=== PATIENT | male | born 1935 | race Caucasian/White ===

== ENCOUNTER → 2020-03-07 12:03 | Outpatient (BNVA) | payer MEDICARE, SELFPAY | PROVIDERS: Family Provider Physician Assistant Medical; PCP Physician Assistant Medical; Visit Provider Dermatology | DX: D48.9 Neoplasm of uncertain behavior, unspecified (principal) | CPT/HCPCS: 88304 ==

== ENCOUNTER → 2020-05-03 12:34 | Outpatient (BNVA) | payer MEDICARE, SELFPAY | PROVIDERS: Family Provider Physician Assistant Medical; PCP Physician Assistant Medical; Visit Provider Surgery | DX: Z20.828 Contact with and (suspected) exposure to other viral communicable diseases (principal); K40.90 Unilateral inguinal hernia, without obstruction or gangrene, not specified as recurrent; R22.32 Localized swelling, mass and lump, left upper limb | CPT/HCPCS: 87635 ==

== ENCOUNTER 2020-05-10 08:20 | Day surgery (SDC) | payer MEDICARE, SELFPAY ==
[2020-05-09 13:56] VITALS: BMI 25.8
[2020-05-10] VITALS (17 sets, daily range): BP systolic 79–112; BP diastolic 48–87; PULSE 54–82; RESP 16–18; TEMP 36.2–36.6; O2SAT 94–99
--- NOTE | 2020-05-10 09:25 | W.PM.OPSFHP ---
Same Day Surgery H&P Indication for Procedure/HPI DATE OF PROCEDURE: May 10, 2020 CHIEF COMPLAINT/INDICATIONFOR SURGICAL PROCEDURE: left hand mass and right inguinal hernia repair PREOP DIAGNOSIS: Right inguinal hernia, cyst left index finger PLANNED PROCEDRUE: Operation Date: 05/10/20 09:55 Proposed Procedures p Laparoscopic poss open right Inguinal Hernia Repair w/Mesh 99392 k40.90 r22.32(Right) - Marcus Aldrich MD s excision of subcutaneous mass left index finger(Left) - Marcus Aldrich MD Medications/Allergies* Home Medications Medication Instructions Recorded Confirmed Type acetaminophen 650 mg 650 mg PO Q12H 06/21/19 05/09/20 History tablet,extended release metoprolol tartrate 25 mg tablet 25 mg PO DIRECTED tab 06/21/19 05/10/20 History omeprazole 40 mg capsule,delayed 40 mg PO DAILY 06/21/19 05/10/20 History release rosuvastatin 20 mg tablet 20 mg PO DAILY 06/21/19 05/10/20 History aspirin 81 mg tablet,delayed See Rx Instructions .ROUTE .COMPLEX 03/07/20 05/10/20 History release cholecalciferol (vitamin D3) 25 25 mcg PO DAILY 03/07/20 05/10/20 History mcg (1,000 unit) capsule ferrous sulfate 325 mg (65 mg 325 mg PO DAILY 03/07/20 05/10/20 History iron) tablet finasteride 5 mg tablet 5 mg PO DAILY 03/07/20 05/10/20 History lisinopril 5 mg tablet 2.5 mg PO DAILY tab 03/07/20 05/10/20 History Allergies/Adverse Reactions Allergy/AdvReac Type Severity Reaction Status Date / Time Penicillins Allergy Unknown Unknown Verified 05/09/20 13:46 Sulfa (Sulfonamide Allergy Unknown Unknown Verified 05/09/20 13:46 Antibiotics) Pertinent History/Comorbid Conditions* Medical History (Updated 03/27/20 @ 14:56 by Marcus Aldrich MD) Anxiety BPH (benign prostatic hyperplasia) Cardiomyopathy CHF (congestive heart failure) Dyslipidemia GERD (gastroesophageal reflux disease) History of skin cancer HTN (hypertension), benign ICD (implantable cardioverter-defibrillator) in place Right inguinal hernia UTI (urinary tract infection) Surgical History (Updated 03/27/20 @ 14:56 by Marcus Aldrich MD) H/O colonoscopy yrs ago S/P cardiac cath S/P internal cardiac defibrillator procedure S/P rotator cuff surgery Family History (Updated 03/27/20 @ 08:59 by Nina Arias LPN) Father, [place] age 82 Mother, [place] age 58 Cancer Mother Father Sister Denies family history of Anesthesia complication Bleeding disorder Social History Smoking and tobacco status: former smoker Alcohol intake: never Household members: spouse Marital status: Current occupational status: retired History of recent travel: No Pertinent Exam Findings alert, oriented x 3 and regular rate & rhythm Recommendations Surgery/Procedure today Coding Level of Care Code Acute Analytic Programmer for Tino Koehler
--- NOTE | 2020-05-10 09:50 | ANES.PREANE2 ---
Pre-Anesthetic Assessment Pre-Anesthetic Assessment: Height/Weight: Height 1.78 m Weight 81.647 kg Temp Pulse Resp BP Pulse Ox 97.7 F 66 18 103/66 95 05/10/20 08:50 05/10/20 08:50 05/10/20 08:50 05/10/20 08:50 05/10/20 08:50 Preop Diagnosis: Right inguinal hernia, cyst left index finger Proposed Procedure: Operation Date: 05/10/20 09:55 Proposed Procedures p Laparoscopic poss open right Inguinal Hernia Repair w/Mesh 40274 k40.90 r22.32(Right) - Marcus Aldrich MD s excision of subcutaneous mass left index finger(Left) - Marcus Aldrich MD Familial anesthetic complications: na Was Beta Yandel taken within 24 hours: Yes Last intake: Intake Last Liquid Date 05/09/20 Last Liquid Time 19:30 Last Solid Date 05/09/20 Last Solid Time 20:00 Last Intake: 18:30 Social: Social History: No alcohol and No tobacco Exam: Pre-Anes Outpt Exam: alert, oriented x 3 and clear to auscultation bilaterally Airway: Submandibular: WNL Cervical ROM: WNL MP: 2 Dentition: False Pulmonary: Pulmonary: None reported CV/HEM: CV/HEM: Arrythmia (AICD) and HTN Comments: AICD went off 2 yrs ago. Off Amiodarone 1.5 : : None reported Hepatic: Hepatic: None reported GI: GI: None reported Metabolic: Metabolic: None reported Musc/skel: Musc/skel: Lower Back Pain and OA/DJD Neuropsych: Neuropsych: Syncope (near in 2016 and AICD placed) Anesthetic Plan: ASA status: 3 Anesthesia: General PFSH Anesthesia PFSH: Medical History Anxiety BPH (benign prostatic hyperplasia) Cardiomyopathy CHF (congestive heart failure) Dyslipidemia GERD (gastroesophageal reflux disease) History of skin cancer HTN (hypertension), benign ICD (implantable cardioverter-defibrillator) in place Right inguinal hernia UTI (urinary tract infection) Surgical History H/O colonoscopy yrs ago S/P cardiac cath S/P internal cardiac defibrillator procedure S/P rotator cuff surgery Family History Mother , [place] age 58 Cancer Father , [place] age 82 Cancer Sister Cancer Denies family history of Anesthesia complication Bleeding disorder Social History Smoking and tobacco status: former smoker Alcohol intake: never Household members: spouse Marital status: Current occupational status: retired History of recent travel: No Data Anesthesia Cardiac Studies: No Data to Display
[2020-05-10] MEDS: clindamycin 600 MG/50 ML PREMIX 100 MG IV (10:34)
[2020-05-10] MEDS: lidocaine 1% INJ 20 mL IM (11:47)
--- NOTE | 2020-05-10 12:53 | SUR.PHASEII ---
PATIENT SUPINE. A+O X3. IV FLUIDS INFUSED. TOLERATING PO FLUIDS WELL.
--- NOTE | 2020-05-10 13:52 | SUR.PHASEII ---
13:40 pT REMAINS HYPOTENSIVE.DENIES PAIN OR DIZZINESS. TOLERATING PO FLUIDS WELL. RE-EVALUATED BY Dr OLSEN. IV ALBUMIN ORDERED.
[2020-05-10] MEDS: albumin 12.5 GM/250 ML VIAL IV (13:55)
--- NOTE | 2020-05-10 14:54 | PM.OP ---
Operative Report Date of procedure: May 10, 2020 Pre-op Diagnosis: 1. Symptomatic reducible right inguinal hernia 2. Cyst plantar aspect of left index finger Post-op Findings: 1. Reducible indirect right inguinal hernia 2. Bilobed cyst plantar aspect of left index finger Procedure Done: 1. Laparoscopic repair of right inguinal indirect hernia with Surgimax 3D mesh measuring 16 x 11 cm 2. Excision of cyst plantar aspect of left index finger Specimens removed/disposition: 1. Cyst left index finger Surgeon: Marcus Aldrich Anesthesia: General Condition: stable Disposition: PACU Procedure: The patient was taken to the operating room. After IV antibiotic was administered, the abdomen was prepped and draped in a sterile manner. Using a 15 blade, a 1.0 cm transverse incision was made infraumbilically on the right side. Subcutaneous tissue was divided using electrocautery and the anterior rectus sheath divided using an 11 blade. The rectus muscle was retracted laterally and the extraperitoneal space identified. A 11 mm port was placed and 12 mm of pneumoperitoneum was created. A 10 mm 30? scope was introduced and the retrorectus space was opened using the camera up to the pubic symphysis and 5 mm ports were placed in the midline, one 2-fingerbreadths above the pubic symphysis and the other midway between these two ports under direct visualization. Blunt dissection was carried out to open up the tissue in the midline and to the pubic symphysis, which was identified. The dissection was then carried laterally where the iliopubic tract was identified. There was no femoral, obturator or direct hernia noted. The inferior epigastric artery was identified and dissection was carried posterior to it and laterally, the space was opened up to the level of the umbilicus superior to the anterior superior iliac spine. I then proceeded to dissect out the spermatic cord and the indirect hernial sac was reduced . There was a pneumoperitoneum created due to small tear in the peritoneum, the pneumoperitoneum was released using a Verres needle placed in the midclavicular line in the right upper quadrant. 16 x 11cm Surgimax 3D mesh was rolled and introduced through the 10 mm port and then rolled laterally and apposed well against the abdominal wall to cover the myopectineal orifice completely. 10 Cc of 0.5% Marcaine was infiltrated into the preperitoneal space. The extraperitoneal space was desufflated under direct visualization to ensure no slippage of hernial sac under the mesh. All ports were removed, the anterior rectus fascia at the infraumbilical port closed using figure of eight 0 Vicryl sutures, subcutaneous tissue approximated using 3-0 Vicryl sutures and skin at all three port sites were closed using running subcuticular 4-0 Monocryl sutures and Dermabond. 10 mL of 0.5% Marcaine was infiltrated at the port sites. The left hand was prepped and draped in a sterile manner. 10 cc of 1% lidocaine was infiltrated at the base of the left index finger for a digital block. A 15 blade 3 cm incision was made over the distal phalanx of the left index finger and the bilobed cyst was dissected free from the surrounding subcutaneous tissue using Iris scissors. Wound was irrigated with saline, hemostasis ensured and subcutaneous tissues were approximated using interrupted 3-0 Vicryl suture and skin was closed using interrupted 3-0 Prolene suture and pressure dressings were applied. The patient was stable throughout the procedure.
[2020-05-10] MEDS: ePHEDrine 50 mg/mL Inj 25 MG IM (16:16)
[2020-05-10] MEDS: sodium chloride 0.9% 500 ML 999 ML IV (16:16)
--- NOTE | 2020-05-10 17:09 | ANE.PACU2 ---
Inpatient post-anesthesia follow up: Airway intact: Yes Vital signs: Temperature 97.5 F Pulse Rate 54 Respiratory Rate 18 Blood Pressure 112/87 Pulse Oximetry 96 Oxygen Delivery Me thod Room Air Oxygen Flow Rate 8 Fraction of Inspir ed Oxygen Hydration adequate: Yes Nausea and vomiting: No Pain level: 1 Mental status: Baseline Additional Comments: Some difficulty with postop hypotension, responded to fluid.
== END 2020-05-10 17:30 | disposition home or self-care (01) ==
PROVIDERS: PCP Physician Assistant Medical; Visit Provider Surgery
PROC: (CPT 49650; principal; 2020-05-10 09:55)
PROC: (CPT 11423; 2020-05-10 09:55)
DX: K40.90 Unilateral inguinal hernia, without obstruction or gangrene, not specified as recurrent (principal); L72.8 Other follicular cysts of the skin and subcutaneous tissue; M19.90 Unspecified osteoarthritis, unspecified site; F41.9 Anxiety disorder, unspecified; N40.0 Benign prostatic hyperplasia without lower urinary tract symptoms; I11.0 Hypertensive heart disease with heart failure; I50.9 Heart failure, unspecified; Z87.891 Personal history of nicotine dependence
CPT/HCPCS: 11423; 12041; 49650; 12345; 88307; C1781; J2370; J2405; J2704; J2710; J3010; J3490; J7040; P9041

== ENCOUNTER 2021-02-28 23:08 | Emergency (ER) | payer MEDICARE, SELFPAY ==
[2021-02-28 23:10] VITALS: BP 162/96; PULSE 60; RESP 18; TEMP 36.4; O2SAT 98; BMI 25.8
--- NOTE | 2021-02-28 23:23 | CTR_ITS ---
PROCEDURE INFORMATION: Exam: CT Cervical Spine Without Contrast Exam date and time: 02/28/2021 11:23 PM Age: 85 years old Clinical indication: Injury or trauma; Fall; Blunt trauma TECHNIQUE: Imaging protocol: Computed tomography images of the cervical spine without contrast. Radiation optimization: All CT scans at this facility use at least one of these dose optimization techniques: automated exposure control; mA and/or kV adjustment per patient size (includes targeted exams where dose is matched to clinical indication); or iterative reconstruction. COMPARISON: CT Cervical Spine wo* [id number] 07/11/2018 12:26 AM RADIATION DOSE METRICS: Total DLP (mGy-cm): 645.17 FINDINGS: Bones/joints: Moderate to severe multilevel spine degenerative changes including degenerative disc disease, spondylosis and facet degenerative changes. Discs/Spinal canal/Neural foramina: Multilevel bilateral foraminal stenosis. Lungs: Lung apices are normal. Vasculature: Severe calcified carotid artery disease. Soft tissues: Unremarkable. CT/CT cervical spin wo con* [id number] IMPRESSION: No acute C-spine findings. Radiation Dose CTDIVOL = (mGy): DLP = 645.17 (mGy-cm)
--- NOTE | 2021-02-28 23:23 | CTR_ITS ---
PROCEDURE INFORMATION: Exam: CT Head Without Contrast Exam date and time: 02/28/2021 11:23 PM Age: 85 years old Clinical indication: Injury or trauma; Fall; Blunt trauma (contusions or hematomas) TECHNIQUE: Imaging protocol: Computed tomography of the head without contrast. Radiation optimization: All CT scans at this facility use at least one of these dose optimization techniques: automated exposure control; mA and/or kV adjustment per patient size (includes targeted exams where dose is matched to clinical indication); or iterative reconstruction. COMPARISON: CT head wo con* [id number] 09/20/2018 11:28 AM RADIATION DOSE METRICS: Total DLP (mGy-cm): 842.34 FINDINGS: Brain: Mild to moderate cerebral atrophy and ischemic leukoencephalopathy. Cerebral ventricles: No ventriculomegaly. Paranasal sinuses: Mild bilateral ethmoid sinus disease. Mastoid air cells: Visualized mastoid air cells are well aerated. Vasculature: Severe calcified intracranial atherosclerotic vessel disease. Bones/joints: Unremarkable. No acute fracture. Soft tissues: Soft tissue swelling/hematoma over the left forehead. CT/CT head wo con* [id number] IMPRESSION: 1. Mild bilateral ethmoid sinus disease. 2. Soft tissue swelling/hematoma over the left forehead. 3. No acute intracranial findings. Radiation Dose CTDIVOL = (mGy): DLP = 842.34 (mGy-cm)
--- NOTE | 2021-02-28 23:30 | W.ED.FALL ---
HPI - Fall General: Chief Complaint: Fall Stated Complaint: FALL Time Seen by Provider: 02/28/21 23:16 Source: patient and EMS Mode of arrival: EMS Limitations: no limitations History of Present Illness: HPI Narrative: 85-year-old male states over the last 4 days he had some slight weakness and has had a couple falls. Patient also states that he has had some slight weakness he had a urinary tract left past stay now another 1 he is able to walk with a walker he did strike his head today and has an abrasion to his left forehead his last fall was this morning. Does have skin tears to forearms Associated symptoms-after fall: Denies abdominal pain, chest pain, headache(s) or neck pain Review of Systems Const: Denies: fever(s), chills, body aches or change in appetite Eyes: Denies: blurry vision or eye discomfort ENMT: Denies: throat pain or dental pain Card: Denies: chest pain Resp: Denies: dyspnea GI: Denies: abdominal pain, nausea, vomiting or diarrhea : Denies: dysuria Musc: Denies: neck pain or back pain Skin/Breast: Denies: rash Neuro: Denies: headache(s) Psych: Denies: depression Oscar/Lymph: Denies: easy bruising All/Imm: Denies: urticaria PFSH ED PFSH: Medical History Anxiety BPH (benign prostatic hyperplasia) Cardiomyopathy CHF (congestive heart failure) Dyslipidemia GERD (gastroesophageal reflux disease) History of skin cancer HTN (hypertension), benign ICD (implantable cardioverter-defibrillator) in place Right inguinal hernia UTI (urinary tract infection) Surgical History H/O colonoscopy yrs ago H/O excision of mass (05/10/20) S/P cardiac cath S/P internal cardiac defibrillator procedure S/P rotator cuff surgery Status post right inguinal hernia repair (05/10/20) Family History Mother , [place] age 58 Cancer Father , [place] age 82 Cancer Sister Cancer Denies family history of Anesthesia complication Bleeding disorder Social History Smoking and tobacco status: former smoker Alcohol intake: never Household members: spouse Marital status: Current occupational status: retired History of recent travel: No Physical Exam Const: COMMON NORMALS: no acute distress, patient oriented x3 and healthy appearing HENMT: COMMON NORMALS: normocephalic HEAD & SCALP: normocephalic OTHER: Abrasion left forehead Eye: COMMON NORMALS: Equal, round and reactive pupils present and EOMs intact bilaterally PUPIL: Yes Equal, round and reactive pupils present Neck/C-Spine: COMMON NORMALS: full ROM and supple Chest: COMMONS NORMALS: normal inspection of the chest and normal palpation of entire chest wall Resp: COMMON NORMALS: normal respiratory effort, No retractions, No use of accessory muscles and clear to auscultation bilaterally AUSCULTATION: clear to auscultation bilaterally Cardio: COMMON NORMALS: regular rate, regular rhythm and No murmurs present (Cardio) RATE: regular rate RHYTHM: regular rhythm GI: COMMON NORMALS: Normal to inspection, nondistended, normoactive bowel sounds present, Soft to palpation, non-tender and no masses PALPATION: Yes Soft to palpation Extremity: COMMON NORMALS: normal to inspection and full ROM OTHER: Small skin tears to both arms Neuro: COMMON NORMALS: patient oriented x3, moves all extremities and no focal motor deficits Psych: COMMON NORMALS: mental status grossly normal, Normal thought process present and cooperative THOUGHT PROCESS: Normal thought process present Skin: COMMON NORMALS: no rashes or lesions noted and no wounds GENERAL SKIN EXAM: no rashes or lesions noted Course Vital Signs: Vital signs: Vital Signs Temperature 97.5 F L 02/28/21 23:10 Pulse Rate 60 02/28/21 23:10 Respiratory Rate 18 02/28/21 23:10 Blood Pressure 162/96 02/28/21 23:10 Pulse Oximetry 98 02/28/21 23:10 MDM - Fall MDM Narrative: Medical decision making narrative: Patient presents with a fall with closed head injury no signs of any major injuries head CT here is normal. Does have a UTI will treat with Macrobid no signs of sepsis he is requesting go home I feel he is stable for discharge he follow-up with PCP and return if worsening. Lab Data: Labs: Lab Results 02/28/21 02/28/21 02/28/21 23:50 23:50 23:50 WBC 11.0 10^3/uL H 10 ^3/uL (4.0-10.0) RBC 3.84 10^6/uL L 10 ^6/uL (4.1-5.3) Hgb 12.0 g/dL g/dL (11.7-16.6) Hct 36.5 % L % (42.0-52.0) MCV 95.1 fl H fl (80-94) MCH 31.3 pg pg (28.0-34.0) MCHC 32.9 g/dL g/dL (30.0-36.0) RDW 14.2 % % (12.1-15.1) Plt Count 148 10^3/cmm 10^3 /cmm (130-400) MPV 8.9 fL fL (7.4-10.4) Neut % (Auto) 73.8 % % Lymph % (Auto) 14.5 % % [place] % (Auto) 10.3 % % Eos % (Auto) 0.4 % % Baso % (Auto) 0.3 % % Neut # (Auto) 8.09 10^3/uL H 10 ^3/uL (1.8-7.7) Lymph # (Auto) 1.6 10^3/uL 10^3/ uL (0.8-4.8) [place] # (Auto) 1.1 10^3/uL H 10^ 3/uL (0.2-0.9) Eos # (Auto) 0.0 10^3/uL 10^3/ uL (0.0-0.8) Baso # (Auto) 0.0 10^3/uL 10^3/ uL (0.0-0.1) Nucleated RBC % (a uto) 0 % % Nucleated RBCs # 0.0 /100WBC /100W BC Sodium 136 mmol/L mmol/L (136-145) Potassium 4.4 mmol/L mmol/L (3.5-5.1) Chloride 101 mmol/L mmol/L (98-107) Carbon Dioxide 27 mmol/L mmol/L (22-29) Anion Gap 12.4 (5-19) BUN 25 mg/dL H mg/dL (8-23) Creatinine 1.4 mg/dL H mg/dL (0.7-1.2) GFR Calculation Not Reportable Glucose 115 mg/dL mg/dL (65-115) Calculated Osmolal ity 287 mOsm/kg mOsm/ kg (285-295) Calcium 9.5 mg/dL mg/dL (8.5-10.5) Total Bilirubin 0.4 mg/dL mg/dL (0.15-1.2) AST 144 U/L H U/L (0-40) ALT 118 U/L H U/L (0-41) Alkaline Phosphata se 94 IU/L IU/L (40-130) Total Protein 7.3 g/dL g/dL (6.6-8.7) Albumin 3.7 g/dL g/dL (3.5-5.2) Globulin 3.6 g/dL g/dL (1.3-4.6) Urine Color Yellow (Yellow) Urine Appearance Sl cloudy A (CLEAR) Urine pH 5 (5-7) Ur Specific Gravit y 1.015 (1.005-1.030) Urine Protein Neg (Negative) Urine Glucose (UA) Norm (Normal) Urine Ketones Negative (Negative) Urine Blood 2+ H (Negative) Urine Nitrate Negative (Negative) Urine Bilirubin Neg (Negative) Urine Urobilinogen Norm mg/dL mg/dL (Negative) Ur Leukocyte Audrey ase 2+ H (Negative) Urine RBC 15-25 /hpf H /hpf (0-2) Urine WBC Too numerous to c nt /hpf H /hpf (0-5) Ur Squamous Epith Cells None /hpf /hpf (0-5) Amorphous Sediment Not Reportable Urine Bacteria 2+ /hpf H /hpf (NONE) Imaging Data^: CT Head: Radiologist's impression: [address] [address] [address] Scan Report Signed Patient: James Villasenor Unit #: [id number] : 1935 Age/Sex: 85 / M ADM Date: 02/28/21 Loc: ER Room/Bed: Attending Dr: Ordering Provider/Ordering MD: Reginaldo Kong MD Date of Service: 02/28/21 Procedure(s): CT head wo con* [id number] Accession Number(s): [id number] Report Number: [id number] PROCEDURE INFORMATION: Exam: CT Head Without Contrast Exam date and time: 02/28/2021 11:23 PM Age: 85 years old Clinical indication: Injury or trauma; Fall; Blunt trauma (contusions or hematomas) TECHNIQUE: Imaging protocol: Computed tomography of the head without contrast. Radiation optimization: All CT scans at this facility use at least one of these dose optimization techniques: automated exposure control; mA and/or kV adjustment per patient size (includes targeted exams where dose is matched to clinical indication); or iterative reconstruction. COMPARISON: CT head wo con* [id number] 09/20/2018 11:28 AM RADIATION DOSE METRICS: Total DLP (mGy-cm): 842.34 FINDINGS: Brain: Mild to moderate cerebral atrophy and ischemic leukoencephalopathy. Cerebral ventricles: No ventriculomegaly. Paranasal sinuses: Mild bilateral ethmoid sinus disease. Mastoid air cells: Visualized mastoid air cells are well aerated. Vasculature: Severe calcified intracranial atherosclerotic vessel disease. Bones/joints: Unremarkable. No acute fracture. Soft tissues: Soft tissue swelling/hematoma over the left forehead. CT/CT head wo con* [id number] IMPRESSION: 1. Mild bilateral ethmoid sinus disease. 2. Soft tissue swelling/hematoma over the left forehead. 3. No acute intracranial findings. Radiation Dose CTDIVOL = (mGy): DLP = 842.34 (mGy-cm) Dictated By: Simon Celeste MD Signed By: Simon Celeste MD Signed Date/Time: 03/01/21 0034 DD/ [id number]: Radiologist's impression: [address] [address] [address] Scan Report Signed Patient: James Villasenor Unit #: [id number] : 1935 Age/Sex: 85 / M ADM Date: 02/28/21 Loc: ER Room/Bed: Attending Dr: Ordering Provider/Ordering MD: Reginaldo Kong MD Date of Service: 02/28/21 Procedure(s): CT cervical spin wo con* [id number] Accession Number(s): [id number] Report Number: [id number] PROCEDURE INFORMATION: Exam: CT Cervical Spine Without Contrast Exam date and time: 02/28/2021 11:23 PM Age: 85 years old Clinical indication: Injury or trauma; Fall; Blunt trauma TECHNIQUE: Imaging protocol: Computed tomography images of the cervical spine without contrast. Radiation optimization: All CT scans at this facility use at least one of these dose optimization techniques: automated exposure control; mA and/or kV adjustment per patient size (includes targeted exams where dose is matched to clinical indication); or iterative reconstruction. COMPARISON: CT Cervical Spine wo* [id number] 07/11/2018 12:26 AM RADIATION DOSE METRICS: Total DLP (mGy-cm): 645.17 FINDINGS: Bones/joints: Moderate to severe multilevel spine degenerative changes including degenerative disc disease, spondylosis and facet degenerative changes. Discs/Spinal canal/Neural foramina: Multilevel bilateral foraminal stenosis. Lungs: Lung apices are normal. Vasculature: Severe calcified carotid artery disease. Soft tissues: Unremarkable. CT/CT cervical spin wo con* [id number] IMPRESSION: No acute C-spine findings. Radiation Dose CTDIVOL = (mGy): DLP = 645.17 (mGy-cm) Dictated By: Simon Celeste MD Signed By: Simon Celeste MD Signed Date/Time: 03/01/21 0036 DD/ [id number] Discharge Plan Discharge Patient Disposition: Home Clinical Impression: Fall, Skin tear, CHI (closed head injury), Acute cystitis Condition: Stable Prescriptions: New Macrobid 100 mg capsule 100 mg PO BID 7 Days Qty: 14 RF: 0 No Action acetaminophen 650 mg tablet extended release 650 mg PO Q12H PRN (Reason: Pain) RF: 0 omeprazole 40 mg capsule,delayed release(DR/EC) 40 mg PO DAILY RF: 0 aspirin [Adult Aspirin Regimen] 81 mg tablet,delayed release (DR/EC) See Rx Instructions .ROUTE .COMPLEX RF: 0 cholecalciferol (vitamin D3) 25 mcg (1,000 unit) capsule 25 mcg PO DAILY RF: 0 ferrous sulfate 325 mg (65 mg iron) tablet 325 mg PO DAILY RF: 0 amiodarone 200 mg tablet 400 mg PO DAILY Qty: 180 RF: 3 tamsulosin 0.4 mg Capsule 0.4 mg PO DAILY RF: 0 sertraline 50 mg Tablet 50 mg PO DAILY RF: 0 dutasteride 0.5 mg Capsule 0.5 mg PO DAILY RF: 0 Discharge Orders: Discharge ED (Routine); Ordered 03/01/21 Ordered By: Reginaldo Kong Referrals: Simon Pulido [Primary Care Provider] - 1-3 days Discharge Diet: Advance as tolerated Discharge Activity: Resume usual activity Patient Instructions: Head Injury (ED), Fall Prevention (ED) Coding Level of Care Code ED Activity Therapy Teacher for [place] Fwd Exam Comprehensive
[2021-02-28 23:59] LABS: Basophils % 0.3 %; Eosinophils % 0.4 %; Hematocrit 36.5 % (42.0-52.0); Lymphocytes # 1.6 10^3/uL (0.8-4.8); Lymphocytes % 14.5 %; Mean Corpuscular HGB Conc 32.9 g/dL (30.0-36.0); Mean Corpuscular Hemoglobin 31.3 pg (28.0-34.0); Mean Corpuscular Volume 95.1 fl (80-94); Mean Platelet Volume 8.9 fL (7.4-10.4); Monocytes # 1.1 10^3/uL (0.2-0.9); Monocytes % 10.3 %; Neutrophils # 8.09 10^3/uL (1.8-7.7); Neutrophils % 73.8 %; Nucleated Red Blood Cells % 0 %; Platelet Count 148 10^3/cmm (130-400); Red Blood Count 3.84 10^6/uL (4.1-5.3); Red Cell Distribution Width 14.2 % (12.1-15.1)
[2021-03-01 00:06] LABS: Urine Color Yellow (Yellow)
[2021-03-01 00:07] LABS: Add Urine Microscopic? YES; Bilirubin Urine Neg (Negative); Blood Urine 2+ (Negative); Glucose Urine UA Norm (Normal); Ketones Urine Negative (Negative); Leukocyte Esterase Urine 2+ (Negative); Nitrate Urine Negative (Negative); Protein Urine Neg (Negative); Specific Gravity, Urine 1.015 (1.005-1.030); Urobilinogen Urine Norm (Negative); pH Urine 5 (5-7)
[2021-03-01 00:08] LABS: Add Urine Culture? Yes; Bacteria Urine 2+ /hpf; RBC Urine 15-25 /hpf (0-2); WBC Urine TOO NUMEROUS TO CNT /hpf (0-5)
[2021-03-01 00:20] LABS: Alanine Aminotransferase 118 U/L (0-41); Albumin Level 3.7 g/dL (3.5-5.2); Alkaline Phosphatase 94 IU/L (40-130); Aspartate Amino Transferase 144 U/L (0-40); Blood Urea Nitrogen 25 mg/dL (8-23); Calcium 9.5 mg/dL (8.5-10.5); Carbon Dioxide 27 mmol/L (22-29); Chloride 101 mmol/L (98-107); Globulin 3.6 g/dL (1.3-4.6); Glucose 115 mg/dL (65-115); Osmolality Calculated 287 mOsm/kg (285-295); Sodium 136 mmol/L (136-145); Total Bilirubin 0.4 mg/dL (0.15-1.2); Total Protein 7.3 g/dL (6.6-8.7)
[2021-03-01 00:37] LABS: Anion Gap 12.4 (5-19); Potassium 4.4 mmol/L (3.5-5.1)
[2021-03-01 00:49] VITALS: BP 119/64; PULSE 74; RESP 18; O2SAT 96
[2021-03-01] MEDS: cefTRIAXone 1,000 MG in sodium chloride 0.9% (plus) 50 ML 100 MG IV (01:05)
--- NOTE | 2021-03-01 01:13 | PC.NURSE ---
skin tear measuring approx 15cm across R forearm dressed with non stick telfa, wrapped in gauze
[2021-03-01 01:33] VITALS: BP 119/64; PULSE 58; RESP 18; O2SAT 96
== END 2021-03-01 01:39 | disposition home or self-care (01) ==
PROVIDERS: Emergency Provider Emergency Medicine; PCP Physician Assistant Medical
DX: S51.819A Laceration without foreign body of unspecified forearm, initial encounter (principal); Z87.891 Personal history of nicotine dependence; W18.30XA Fall on same level, unspecified, initial encounter; Z91.81 History of falling; S00.81XA Abrasion of other part of head, initial encounter; N30.00 Acute cystitis without hematuria
CPT/HCPCS: 70450; 72125; 80053; 81001; 81003; 85025; 87077; 87086; 87186; 96365; 99283; J0696

== ENCOUNTER 2021-07-28 14:43 | Emergency (ER) | payer MEDICARE, SELFPAY ==
[2021-07-28] VITALS (9 sets, daily range): BP systolic 111–161; BP diastolic 61–77; PULSE 54–80; RESP 14–20; TEMP 36.5; O2SAT 96–99; BMI 26.5
--- NOTE | 2021-07-28 14:45 | W.ED.WEAKNES ---
HPI - Weakness General: Chief complaint: Weakness Stated complaint: WEAKNESS; HYPOTENSION Time Seen by Provider: 07/28/21 14:44 History of Present Illness: Mr. Villasenor is an 86-year-old gentleman with history of hypertension, hyperlipidemia, ICD placement, cardiomyopathy, heart failure with reduced ejection who presents to the emergency department due to weakness and chills. He reports yesterday he had decreased exercise/exertional tolerance and felt generally unwell. He subsequently developed rigors and chills and mild dysuria. Today he felt weak to the point that he could not get out of bed. EMS found that he was hypotensive and administered IV fluids. He otherwise denies focal source of infection or respiratory symptoms. He denies chest pain. He has not had changes in his medications. Intensity symptoms moderate to severe. Course is improved after fluids. No other specific changes in health, exacerbating, or alleviating factors identified. Onset (ago): hour(s) Duration: progressively worsening Location: generalized Severity: moderate Relieving factors: none Exacerbating factors: exertion Review of Systems General: Reports: 10 or more systems reviewed and unremarkable except in HPI and below PFSH ED PFSH: Medical History Anxiety BPH (benign prostatic hyperplasia) Cardiomyopathy CHF (congestive heart failure) Dyslipidemia GERD (gastroesophageal reflux disease) History of skin cancer HTN (hypertension), benign ICD (implantable cardioverter-defibrillator) in place Right inguinal hernia UTI (urinary tract infection) Surgical History H/O colonoscopy yrs ago H/O excision of mass (05/10/20) S/P cardiac cath S/P internal cardiac defibrillator procedure S/P rotator cuff surgery Status post right inguinal hernia repair (05/10/20) Family History Mother , CA age 58 Cancer Father , [place] age 82 Cancer Sister Cancer Denies family history of Anesthesia complication Bleeding disorder Social History Alcohol intake: never Household members: spouse Marital status: Current occupational status: retired History of recent travel: No Physical Exam Const: COMMON NORMALS: patient oriented x3 and alert GENERAL APPEARANCE: cooperative, well developed and ill appearing (Mildly) HENMT: COMMON NORMALS: normocephalic and atraumatic HEAD & SCALP: normocephalic and atraumatic THROAT: posterior oropharynx normal Eye: COMMON NORMALS: conjunctivae normal CONJUNCTIVA: Yes conjunctivae normal SCLERA: sclerae normal Neck/C-Spine: COMMON NORMALS: supple GENERAL: Yes trachea midline Resp: COMMON NORMALS: clear to auscultation bilaterally EFFORT & INSPECTION: Yes able to speak in complete sentences AUSCULTATION: clear to auscultation bilaterally Cardio: COMMON NORMALS: regular rate and regular rhythm RATE: regular rate RHYTHM: regular rhythm GI: COMMON NORMALS: Soft to palpation PALPATION: Yes Soft to palpation and No Tenderness to palpation present (GI) PERCUSSION: normal to percussion Extremity: GENERAL: Yes normal exam except as noted and No edema Neuro: COMMON NORMALS: patient oriented x3, CN's II-XII intact bilaterally, moves all extremities, no focal motor deficits and no sensory deficits noted SENSORIUM/ORIENTATION: Yes alert and No Orientation impaired Psych: COMMON NORMALS: mental status grossly normal and Normal thought process present THOUGHT PROCESS: Normal thought process present Course ED course: - Patient was seen and evaluated by me at bedside - Patient placed on cardiac monitors, IV access obtained - Initial evaluation notable for exam as above - Labs and xrays personally interpreted by me. EKGs at 1506 and 1659 personally interpreted by me. Sinus rhythm. Bundle-branch block. No STEMI. - Labs notable for no leukocytosis, normal hemoglobin. Metabolic panel without acute derangement to explain symptoms. Negative delta troponin. Urinalysis not consistent with urinary tract infection. - Imaging notable for negative intracranial hemorrhage or mass on head CT. Right upper lobe infiltrate noted on chest x-ray. -Fluids and antibiotics given - Upon serial reexamination after treatment the patient was improved - Based on patient history, evaluation, and testing as interpreted the most likely cause of the patient's condition is pneumonia - The results of ED evaluation were discussed with the patient including possible disposition options given reported EMS hypotension though patient has not been hypotensive here. Patient comfortable with outpatient management. I discussed prescriptions and/or symptomatic cares (if applicable) including appropriate and responsible use, followup plan, and return precautions. The patient verbalized understanding and felt safe for discharge. - Patient discharged in satisfactory condition. Note: Click bubbles or prepopulated reno in note writing are used for assistance with data collection and billing and are inherently more limited than narrative and other text portions of this note. Please use narrative for additional clinical history and defer to narrative/free test for any case of contradictory information. If information appears in only free text or click bubble it should be considered present or absent as reported. Please contact note data analyst report writer for clarifications of clinical information or contradictory information. MDM is a brief summary, contradictory or erroneous seeming information should be clarified and full note should be reviewed. Vital Signs: Vital signs: Vital Signs Temperature 97.7 F 07/28/21 14:52 Pulse Rate 80 07/28/21 20:44 Respiratory Rate 18 07/28/21 20:44 Blood Pressure 149/77 07/28/21 20:44 Pulse Oximetry 96 07/28/21 20:44 MDM - Weakness Medical Decision Making 86-year-old gentleman with complex past medical history presenting with generalized malaise that is worsened over the past day. Reported mildly hypotensive by EMS however not hypotensive here. Patient had have pneumonia. Satisfactory for outpatient management. Medical Records I reviewed the patient's medical records. Lab Data I reviewed the patient's lab results. : 07/28/21 14:55 07/28/21 14:55 Radiology Impressions Chest X-Ray 07/28/21 14:48 IMPRESSION: 1. Right upper lobe infiltrate. 2. Mild cardiomegaly. Head CT 07/28/21 15:09 IMPRESSION: 1. Negative for intracranial hemorrhage or mass effect. 2. Moderate diffuse white matter disease likely reflecting chronic microvascular ischemic changes. 3. Paranasal sinus mucosal thickening. Laboratory Results WBC 9.1 10^3/uL (4.0-10.0) 07/28/21 14:55 RBC 4.39 10^6/uL (4.1-5.3) 07/28/21 14:55 Hgb 13.5 g/dL (11.7-16.6) 07/28/21 14:55 Hct 41.5 % (42.0-52.0) L 07/28/21 14:55 MCV 94.5 fl (80-94) H 07/28/21 14:55 MCH 30.8 pg (28.0-34.0) 07/28/21 14:55 MCHC 32.5 g/dL (30.0-36.0) 07/28/21 14:55 RDW 14.2 % (12.1-15.1) 07/28/21 14:55 Plt Count 152 10^3/cmm (130-400) 07/28/21 14:55 MPV 9.1 fL (7.4-10.4) 07/28/21 14:55 Neut % (Auto) 78.9 % 07/28/21 14:55 Lymph % (Auto) 11.6 % 07/28/21 14:55 [place] % (Auto) 6.9 % 07/28/21 14:55 Eos % (Auto) 2.1 % 07/28/21 14:55 Baso % (Auto) 0.2 % 07/28/21 14:55 Neut # (Auto) 7.18 10^3/uL (1.8-7.7) 07/28/21 14:55 Lymph # (Auto) 1.1 10^3/uL (0.8-4.8) 07/28/21 14:55 [place] # (Auto) 0.6 10^3/uL (0.2-0.9) 07/28/21 14:55 Eos # (Auto) 0.2 10^3/uL (0.0-0.8) 07/28/21 14:55 Baso # (Auto) 0.0 10^3/uL (0.0-0.1) 07/28/21 14:55 Nucleated RBC % (auto) 0 % 07/28/21 14:55 Nucleated RBCs # 0.0 /100WBC 07/28/21 14:55 Sodium 136 mmol/L (136-145) 07/28/21 14:55 Potassium 4.3 mmol/L (3.5-5.1) 07/28/21 14:55 Chloride 99 mmol/L (98-107) 07/28/21 14:55 Carbon Dioxide 24 mmol/L (22-29) 07/28/21 14:55 Anion Gap 17.3 (5-19) 07/28/21 14:55 BUN 16 mg/dL (8-23) 07/28/21 14:55 Creatinine 1.2 mg/dL (0.7-1.2) 07/28/21 14:55 GFR Calculation Not Reportable 07/28/21 14:55 Glucose 116 mg/dL (65-115) H 07/28/21 14:55 Calculated Osmolality 284 mOsm/kg (285-295) L 07/28/21 14:55 Lactic Acid 1.0 mmol/L (0.5-2.2) 07/28/21 15:20 Calcium 9.6 mg/dL (8.5-10.5) 07/28/21 14:55 Total Bilirubin 0.4 mg/dL (0.15-1.2) 07/28/21 14:55 AST 30 U/L (0-40) 07/28/21 14:55 ALT 32 U/L (0-41) 07/28/21 14:55 Alkaline Phosphatase 82 IU/L (40-130) 07/28/21 14:55 Troponin T Baseline 22 ng/L (0-15) H 07/28/21 14:55 Troponin T 120 Minute 20.00 ng/L (0-15) H 07/28/21 16:31 Delta Troponin T -2.00 ABS# (0-10) L 07/28/21 16:31 C-Reactive Protein 15.3 mg/L (0.0-4.9) H 07/28/21 14:55 NT-Pro-B Natriuret Pep 639 pg/mL (0-450) H 07/28/21 14:55 Total Protein 6.5 g/dL (6.6-8.7) L 07/28/21 14:55 Albumin 3.9 g/dL (3.5-5.2) 07/28/21 14:55 Globulin 2.6 g/dL (1.3-4.6) 07/28/21 14:55 Procalcitonin 0.13 ng/mL (0-0.5) 07/28/21 14:55 TSH 3.01 uIU/mL (0.27-4.20) 07/28/21 14:55 Urine Color Straw (Yellow) 07/28/21 15:09 Urine Appearance Clear (CLEAR) 07/28/21 15:09 Urine pH 7 (5-7) 07/28/21 15:09 Ur Specific [place] 1.010 (1.005-1.030) 07/28/21 15:09 Urine Protein Neg (Negative) 07/28/21 15:09 Urine Glucose (UA) Norm (Normal) 07/28/21 15:09 Urine Ketones Negative (Negative) 07/28/21 15:09 Urine Blood Neg (Negative) 07/28/21 15:09 Urine Nitrate Negative (Negative) 07/28/21 15:09 Urine Bilirubin Neg (Negative) 07/28/21 15:09 Urine Urobilinogen Norm mg/dL (Negative) 07/28/21 15:09 Ur Leukocyte Esterase Negative (Negative) 07/28/21 15:09 Influenza Type A Ag Negative (Negative) 07/28/21 15:40 Influenza Type B Ag Negative (Negative) 07/28/21 15:40 SARS-CoV-2 Ag (Rapid) Negative (Negative) 07/28/21 15:40 Discharge Plan Discharge Patient Disposition: Home Clinical Impression: Pneumonia, Dehydration Condition: Stable Prescriptions: New cefpodoxime 200 mg tablet 200 mg PO BID Qty: 20 0RF Rx Instructions: must administer with a meal/food doxycycline hyclate 100 mg tablet 100 mg PO Q12H 10 Days Qty: 20 0RF No Action mupirocin 2 % ointment 1 applic topical BID Qty: 22 0RF Rx Instructions: Apply to affected areas twice daily until healed acetaminophen 650 mg tablet extended release 650 mg PO Q12H PRN (Reason: Pain) 0RF omeprazole 40 mg capsule,delayed release(DR/EC) 40 mg PO DAILY 0RF cholecalciferol (vitamin D3) 25 mcg (1,000 unit) capsule 25 mcg PO DAILY 0RF ferrous sulfate 325 mg (65 mg iron) tablet 325 mg PO DAILY 0RF aspirin [Adult Aspirin Regimen] 81 mg tablet,delayed release (DR/EC) 81 mg PO DAILY 0RF finasteride 5 mg tablet 5 mg PO DAILY 0RF lisinopril 2.5 mg tablet 2.5 mg PO DAILY 0RF diclofenac sodium [Arthritis Pain (diclofenac)] 1 % gel 2 g topical QID PRN0RF Rx Instructions: apply to single elbow, wrist or hand; for hand includes palm/fingers/back of hand amiodarone 200 mg tablet 400 mg PO DAILY Qty: 180 3RF tamsulosin 0.4 mg Capsule 0.4 mg PO DAILY 0RF sertraline 50 mg tablet 25 mg PO DAILY 0RF Discharge Orders: Discharge ED (Routine); Ordered 07/28/21 Ordered By: Jose Miranda Referrals: Simon Pulido [Referring] - Discharge Diet: Usual diet Discharge Activity: Increase activity as tolerated Patient Instructions: Bacterial Pneumonia (ED) Activity Restrictions/Additional Instructions: Thank you for visiting the emergency department. You were seen and evaluated for chills and generalized weakness. The exact cause of your symptoms is unclear though may be related to pneumonia which will be treated with antibiotics. Please follow-up with your primary care provider. Please return to the emergency department for worsening symptoms, failure to improve in the next few days, chest pain, shortness of breath, or anything else that you are concerned about and feel needs emergency department evaluation. Coding Level of Care Code ED Choral Teacher for Tino Koehler
--- NOTE | 2021-07-28 14:48 | XRR_ITS ---
PROCEDURE INFORMATION: Exam: XR Chest Exam date and time: 07/28/2021 2:59 PM Age: 86 years old Clinical indication: Dyspnea; Additional info: Hypotension, weakness TECHNIQUE: Imaging protocol: XR of the chest. Views: 1 view. COMPARISON: CR Chest 1 [place] [id number] 02/09/2019 10:31 AM FINDINGS: Tubes, catheters and devices: Pacemaker. Lungs: Right upper lobe infiltrate. Pleural spaces: Unremarkable. No pleural effusion. No pneumothorax. Heart/Mediastinum: Mild cardiomegaly. Bones/joints: Unremarkable. XR/XR chest 1V portable [id number] IMPRESSION: 1. Right upper lobe infiltrate. 2. Mild cardiomegaly.
--- NOTE | 2021-07-28 14:49 | ECG_ITS ---
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 Measurements Intervals [place] Rate: 61 P: 1 ME: 206 QRS: -70 QRSD: 155 T: 29 QT: 433 QTc: 439 Interpretive Statements SINUS RHYTHM LEFT AXIS DEVIATION [QRS AXIS < -30] RIGHT BUNDLE BRANCH BLOCK [120+ ms QRS DURATION, UPRIGHT V1, 40+ ms S IN I/aVL/V4/V5/V6] Compared to ECG 02/09/2019 10:22:35 Sinus bradycardia no longer present Ventricular premature complex(es) no longer present Electronically Signed On 07-29-2021 9:35:27 CDT by Jesús Serna M.D. [id number]
[2021-07-28 15:09] LABS: Basophils % 0.2 %; Eosinophils # 0.2 10^3/uL (0.0-0.8); Eosinophils % 2.1 %; Hematocrit 41.5 % (42.0-52.0); Hemoglobin 13.5 g/dL (11.7-16.6); Lymphocytes # 1.1 10^3/uL (0.8-4.8); Lymphocytes % 11.6 %; Mean Corpuscular HGB Conc 32.5 g/dL (30.0-36.0); Mean Corpuscular Hemoglobin 30.8 pg (28.0-34.0); Mean Corpuscular Volume 94.5 fl (80-94); Mean Platelet Volume 9.1 fL (7.4-10.4); Monocytes # 0.6 10^3/uL (0.2-0.9); Monocytes % 6.9 %; Neutrophils # 7.18 10^3/uL (1.8-7.7); Neutrophils % 78.9 %; Nucleated Red Blood Cells % 0 %; Platelet Count 152 10^3/cmm (130-400); Red Blood Count 4.39 10^6/uL (4.1-5.3); Red Cell Distribution Width 14.2 % (12.1-15.1); White Blood Count 9.1 10^3/uL (4.0-10.0)
--- NOTE | 2021-07-28 15:09 | CTR_ITS ---
PROCEDURE INFORMATION: Exam: CT Head Without Contrast Exam date and time: 07/28/2021 3:25 PM Age: 86 years old Clinical indication: Walking, difficulty; Additional info: Unsteady gait TECHNIQUE: Imaging protocol: Computed tomography of the head without contrast. Radiation optimization: All CT scans at this facility use at least one of these dose optimization techniques: automated exposure control; mA and/or kV adjustment per patient size (includes targeted exams where dose is matched to clinical indication); or iterative reconstruction. COMPARISON: CT head wo con* [id number] 02/28/2021 11:54 PM RADIATION DOSE METRICS: Total DLP (mGy-cm): 860.54 FINDINGS: Brain: Moderate diffuse white matter disease likely reflecting chronic microvascular ischemic changes. Cerebral ventricles: No ventriculomegaly. Paranasal sinuses: Paranasal sinus mucosal thickening. Mastoid air cells: Visualized mastoid air cells are well aerated. Bones/joints: Unremarkable. No acute fracture. Soft tissues: Unremarkable. CT/CT head wo con* [id number] IMPRESSION: 1. Negative for intracranial hemorrhage or mass effect. 2. Moderate diffuse white matter disease likely reflecting chronic microvascular ischemic changes. 3. Paranasal sinus mucosal thickening.
[2021-07-28 15:35] LABS: Add Urine Microscopic? NO; Charge for UA Resulting for Rev
[2021-07-28 15:48] LABS: Bilirubin Urine Neg (Negative); Blood Urine Neg (Negative); Glucose Urine UA Norm (Normal); Ketones Urine Negative (Negative); Leukocyte Esterase Urine Negative (Negative); Nitrate Urine Negative (Negative); Protein Urine Neg (Negative); Urine Appearance Clear (CLEAR); Urine Color Straw (Yellow); Urobilinogen Urine Norm (Negative); pH Urine 7 (5-7)
[2021-07-28 16:00] LABS: Troponin(5th) Baseline 22 ng/L (0-15)
[2021-07-28 16:05] LABS: Influenza A by IFA Negative (Negative); Influenza B by IFA Negative (Negative)
[2021-07-28 16:06] LABS: SARS Covid-2 Antigen Negative (Negative)
[2021-07-28 16:06] LABS: NT Pro B Type Natriuretic Pept 639 pg/mL (0-450); Procalcitonin 0.13 ng/mL (0-0.5); Thyroid Stimulating Hormone 3.01 uIU/mL (0.27-4.20)
[2021-07-28 16:17] LABS: Alanine Aminotransferase 32 U/L (0-41); Albumin Level 3.9 g/dL (3.5-5.2); Alkaline Phosphatase 82 IU/L (40-130); Anion Gap 17.3 (5-19); Aspartate Amino Transferase 30 U/L (0-40); Blood Urea Nitrogen 16 mg/dL (8-23); C Reactive Protein 15.3 mg/L (0.0-4.9); Calcium 9.6 mg/dL (8.5-10.5); Carbon Dioxide 24 mmol/L (22-29); Chloride 99 mmol/L (98-107); Creatinine Clr Calc Pharmacy 48.3538; Globulin 2.6 g/dL (1.3-4.6); Glucose 116 mg/dL (65-115); Osmolality Calculated 284 mOsm/kg (285-295); Potassium 4.3 mmol/L (3.5-5.1); Sodium 136 mmol/L (136-145); Total Bilirubin 0.4 mg/dL (0.15-1.2); Total Protein 6.5 g/dL (6.6-8.7)
--- NOTE | 2021-07-28 16:49 | ECG_ITS ---
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 Measurements Intervals [place] Rate: 56 P: 209 OR: 114 QRS: -84 QRSD: 185 T: 16 QT: 522 QTc: 505 Interpretive Statements SINUS BRADYCARDIA WITH SHORT OR INTERVAL RIGHT BUNDLE BRANCH BLOCK [120+ ms QRS DURATION, UPRIGHT V1, 40+ ms S IN I/aVL/V4/V5/V6] INFERIOR MYOCARDIAL INFARCTION , PROBABLY OLD [40+ ms Q WAVE AND/OR ST/T ABNORMALITY IN II/aVF] Compared to ECG 07/28/2021 15:06:37 Short OR interval now present Myocardial infarct finding now present Sinus rhythm no longer present Left-axis deviation no longer present Electronically Signed On 07-29-2021 9:40:35 CDT by Jesús Serna M.D. [id number]
[2021-07-28] MEDS: lactated ringers 1,000 ML 999 ML IV (18:34)
--- NOTE | 2021-07-28 18:36 | PC.NURSE ---
step daughter reports they thought he was going for an ultrasound for an aneurysm and they found spots on his kidney and wants to know more. instructed them to follow up with pcp
[2021-07-28] MEDS: cefTRIAXone 1,000 MG in sodium chloride 0.9% (plus) 50 ML 100 MG IV (19:15)
[2021-07-28] MEDS: doxycycline 100 MG in sodium chloride 0.9% (plus) 100 ML IV (19:28)
== END 2021-07-28 20:46 | disposition home or self-care (01) ==
PROVIDERS: Emergency Provider Emergency Medicine; PCP Registered Nurse
DX: J18.9 Pneumonia, unspecified organism (principal); E86.0 Dehydration; Z79.82 Long term (current) use of aspirin; E78.5 Hyperlipidemia, unspecified; I11.0 Hypertensive heart disease with heart failure; I50.22 Chronic systolic (congestive) heart failure; I42.9 Cardiomyopathy, unspecified; Z95.810 Presence of automatic (implantable) cardiac defibrillator
CPT/HCPCS: 36415; 70450; 71045; 80053; 81003; 83605; 83880; 84145; 84443; 84484; 85025; 86140; 87040; 87426; 87804; 93005; 96365; 96367; 99284; J0696; J3490

== ENCOUNTER → 2021-12-04 12:45 | Outpatient (BNVA) | payer MEDICARE, SELFPAY | PROVIDERS: PCP Registered Nurse; Visit Provider Internal Medicine | DX: I11.0 Hypertensive heart disease with heart failure (principal); I50.22 Chronic systolic (congestive) heart failure; I42.8 Other cardiomyopathies; Z95.810 Presence of automatic (implantable) cardiac defibrillator; Z87.891 Personal history of nicotine dependence | CPT/HCPCS: 99213; 99214 ==

== ENCOUNTER → 2021-12-26 10:26 | Outpatient (BNVA) | payer MEDICARE, SELFPAY | PROVIDERS: PCP Registered Nurse; Visit Provider Orthopaedic Surgery | DX: M17.11 Unilateral primary osteoarthritis, right knee (principal); M54.16 Radiculopathy, lumbar region | CPT/HCPCS: 99203 ==

== ENCOUNTER → 2022-09-03 13:08 | Outpatient (BNVA) | payer MEDICARE, SELFPAY | PROVIDERS: PCP Registered Nurse; Visit Provider Internal Medicine | DX: I11.0 Hypertensive heart disease with heart failure (principal); I50.22 Chronic systolic (congestive) heart failure; I42.8 Other cardiomyopathies; Z95.810 Presence of automatic (implantable) cardiac defibrillator; Z87.891 Personal history of nicotine dependence; Z79.82 Long term (current) use of aspirin | CPT/HCPCS: 99214 ==

== ENCOUNTER → 2022-09-09 12:51 | Outpatient (BNVA) | payer MEDICARE, SELFPAY | PROVIDERS: PCP Registered Nurse; Visit Provider Dermatology | DX: D04.62 Carcinoma in situ of skin of left upper limb, including shoulder (principal); L57.0 Actinic keratosis; L81.4 Other melanin hyperpigmentation; L85.3 Xerosis cutis; L30.0 Nummular dermatitis; Z85.828 Personal history of other malignant neoplasm of skin | CPT/HCPCS: 11102; 17000; 17003; 99214 ==

== ENCOUNTER → 2022-10-01 10:47 | Outpatient (BNVA) | payer MEDICARE, SELFPAY | PROVIDERS: PCP Registered Nurse; Visit Provider Dermatology | DX: D04.62 Carcinoma in situ of skin of left upper limb, including shoulder (principal) | CPT/HCPCS: 17272 ==

== ENCOUNTER → 2023-03-24 15:19 | Outpatient (BNVA) | payer MEDICARE, SELFPAY | PROVIDERS: PCP Registered Nurse; Referring Provider Registered Nurse; Visit Provider Specialist | DX: M17.11 Unilateral primary osteoarthritis, right knee (principal) | CPT/HCPCS: 73560; 73565; 99204 ==

== ENCOUNTER → 2023-04-23 13:42 | Outpatient (BNVA) | payer MEDICARE, SELFPAY | PROVIDERS: PCP Registered Nurse; Visit Provider Nurse Practitioner Family | DX: D04.62 Carcinoma in situ of skin of left upper limb, including shoulder (principal); L57.0 Actinic keratosis; L81.4 Other melanin hyperpigmentation; L85.3 Xerosis cutis; Z85.828 Personal history of other malignant neoplasm of skin | CPT/HCPCS: 99214 ==

== ENCOUNTER → 2023-07-16 14:30 | Outpatient (BNVA) | payer MEDICARE, SELFPAY | PROVIDERS: PCP Registered Nurse; Visit Provider Dermatology | DX: L57.0 Actinic keratosis (principal); L72.0 Epidermal cyst; L81.8 Other specified disorders of pigmentation; D69.2 Other nonthrombocytopenic purpura; D18.01 Hemangioma of skin and subcutaneous tissue; Z85.828 Personal history of other malignant neoplasm of skin | CPT/HCPCS: 17000; 99213 ==

== ENCOUNTER → 2023-10-20 09:03 | Outpatient (BNVA) | payer MEDICARE, SELFPAY | PROVIDERS: PCP Registered Nurse; Visit Provider Nurse Practitioner Family | DX: L57.0 Actinic keratosis (principal); L81.8 Other specified disorders of pigmentation; D69.2 Other nonthrombocytopenic purpura; Z85.828 Personal history of other malignant neoplasm of skin; Z86.007 Personal history of in-situ neoplasm of skin | CPT/HCPCS: 99214 ==

== ENCOUNTER 2024-04-19 01:53 | Inpatient (IN) | payer MEDICARE, SELFPAY ==
[2024-04-19] VITALS (56 sets, daily range): BP systolic 84–148; BP diastolic 45–80; PULSE 53–75; RESP 13–29; TEMP 36.4–37.6; O2SAT 90–100; BMI 28.2
--- NOTE | 2024-04-19 02:23 | XRR_ITS ---
PROCEDURE INFORMATION: Exam: XR Right Hip Exam date and time: 04/19/2024 2:25 AM Age: 88 years old Clinical indication: Hip pain; Right hip; Prior surgery; Surgery date: <1 month; Patient HX: EMS arrival from shelter. Patient in rehab for RT deepak. Patient states he was unable to walk yesterday. Obvious deformity to RT hip. ; Additional info: Pain right hip post op TECHNIQUE: Imaging protocol: Radiologic exam of the right hip. Views: 1 view hip with pelvis when performed. COMPARISON: No relevant prior studies available. FINDINGS: Bones/joints: There has been a right hemiarthroplasty. There is superolateral dislocation of the prosthetic femoral head from the acetabulum. Soft tissues: There is soft tissue swelling superolateral to the acetabulum. Vasculature: Vascular calcifications are seen of the femoral arteries. XR/XR hip RT 2-3V wo/w pel* [id number] IMPRESSION: 1. Status post right hemiarthroplasty with superolateral dislocation of the femoral head. 2. No acute fracture.
--- NOTE | 2024-04-19 02:23 | ED_ITS ---
HPI - Fever 2 General: Chief Complaint: Fever Stated Complaint: WEAKNESS Time Seen by Provider: 04/19/24 02:01 History of Present Illness: 88-year-old male patient who presents fr om the custodial in [place]. He reports to me that he had surgery for hip fracture in [place] on 03/30 or . He was able to walk yesterday, but this morning could not walk. He is experiencing significant pain to his right hip. He evidently had a fever there as well. No other complaints besides generalized weakness. Related Data Home Medications Medication Instructions Recorded Confirmed acetaminophen 650 mg 650 mg PO Q12H PRN Pain 06/21/19 04/19/24 tablet,extended release ferrous sulfate 325 mg (65 mg 325 mg PO DAILY 03/07/20 04/19/24 iron) tablet furosemide 20 mg tablet (Lasix) 20 mg PO DAILY 12/04/21 04/19/24 budesonide-formoterol HFA 160 1 puff inhalation BID 12/26/21 04/19/24 mcg-4.5 mcg/actuation aerosol inhaler (Symbicort) hydrocodone 10 mg-acetaminophen 1 tab PO Q6H 12/26/21 04/19/24 325 mg tablet dutasteride 0.5 mg capsule 0.5 mg PO DAILY 04/19/24 04/19/24 levothyroxine 88 mcg tablet 88 mcg PO DAILY 04/19/24 04/19/24 rosuvastatin 20 mg tablet 20 mg PO QPM 04/19/24 04/19/24 tamsulosin 0.4 mg capsule 0.4 mg PO DAILY 04/19/24 04/19/24 Previous Rx's Medication Instructions Recorded amiodarone 200 mg tablet 400 mg (2 x 200 mg) PO DAILY #180 05/21/23 tabs Allergies Allergy/AdvReac Type Severity Reaction Status Date / Time Sulfa (Sulfonamide Allergy Unknown Unknown Verified 04/19/24 02:05 Antibiotics) PFSH ED 2 PFSH: Medical History Aortic aneurysm Surgery History of nonmelanoma skin cancer Right inguinal hernia BPH (benign prostatic hyperplasia) Dyslipidemia HTN (hypertension), benign UTI (urinary tract infection) GERD (gastroesophageal reflux disease) History of skin cancer Anxiety ICD (implantable cardioverter-defibrillator) in place Cardiomyopathy CHF (congestive heart failure) Surgical History Status post right inguinal hernia repair (05/10/20) H/O excision of mass (05/10/20) S/P cardiac cath H/O colonoscopy yrs ago S/P internal cardiac defibrillator procedure S/P rotator cuff surgery Family History Mother , CA age 58 Cancer Father , CA age 82 Cancer Sister Cancer Denies family history of Anesthesia complication Bleeding disorder Social History Smoking and tobacco/nicotine status: former use of tobacco/nicotine Alcohol intake: never Substance/Drug Use: never Household members: spouse Marital status: Current occupational status: retired Physical Exam 2 Const: GENERAL APPEARANCE: cooperative and frail appearing O RIENTATION/CONSCIOUSNESS: Yes awake, Yes oriented to person, Yes oriented to place and Yes oriented to time HENMT: COMMON NORMALS: normocephalic HEAD & SCALP: normocephalic FACE & SINUS: normal facial exam Eye: COMMON NORMALS: Equal, round and reactive pupils present and EOMs intact bilaterally PUPIL: Yes Equal, round and reactive pupils present Neck/C-Spine: COMMON NORMALS: full ROM GENERAL: Yes trachea midline Chest: CHEST: Yes Symmetrical chest wall rise Resp: COMMON NORMALS: normal respiratory effort, No use of accessory muscles and clear to auscultation bilaterally AUSCULTATION: clear to auscultation bilaterally Cardio: COMMON NORMALS: regular rate and regular rhythm RATE: regular rate RHYTHM: regular rhythm GI: COMMON NORMALS: Soft to palpation PALPATION: Yes Soft to palpation Extremity: NARRATIVE EXTREMITY EXAM: The right lower extremity is internally rotated, shortened, and there is a tender deformity laterally. Neuro: SENSORIUM/ORIENTATION: Yes oriented to person, Yes oriented to place and Yes oriented to time Procedures Orthopedic Joint Reduction Joint #1: Time Out Performed: Yes Side: right Joint Reduction Location: hip Analgesia: procedural sedation Shoulder Technique Used (if applicable): traction/counter-traction and other (Captain Regan) Post-reduction neuro exam: intact Post-reduction vascular: intact Post Reduction X-Ray Obtained: Yes Post Reduction X-Ray Results: reduced Patient Tolerated Procedure: well and no complications Course 2 Vital Signs: Vital signs: Vital Signs Temperature 98.5 F 04/19/24 16:45 Pulse Rate 57 L 04/19/24 17:10 Respiratory Rate 13 04/19/24 17:10 Blood Pressure 105/51 04/19/24 17:10 Pulse Oximetry 98 04/19/24 17:10 Oxygen Delivery Me thod Nasal Cannula 04/19/24 14:02 Oxygen Flow Rate 3 04/19/24 05:34 MDM - Fever Medical Decision Making Blood pressure has been mildly soft here. He has an elevated temperature without overt fever. His hemoglobin is 7.3 which is concerning. White blood cell count is 8.5. Lactic acid is 1.3. His CRP is 120. Swabs are negative for COVID flu and RSV. His urinalysis is negative. His chest x-ray shows a small left-sided pleural effusion. Right hip x-ray reveals dislocation of the prosthesis. Prosthesis reduced under conscious sedation. Patient's pain is much improved currently. His profound anemia remains concerning. Call out to the hospitalist. Hospitalist has come to see the patient. Transfusion has been ordered. CTs have been ordered of the hip, and chest. CTA of the chest revealed pulmonary embolism. He will require hospitalization. He has been admitted. Lab Data 04/19/24 17:40 04/19/24 02:00 Radiology Impressions Chest X-Ray 04/19/24 02:23 IMPRESSION: Right infrahilar consolidation that may represent atelectasis or in the appropriate clinical setting, pneumonia. Hip/Pelvis X-Ray 04/19/24 02:23 IMPRESSION: 1. Status post right hemiarthroplasty with superolateral dislocation of the femoral head. 2. No acute fracture. ADDENDUM: 04/19/24 0610 ADDENDUM: The correct statement is as follows: Status post right hemiarthroplasty with superolateral dislocation of the acetabular component and femoral head. Hip X-Ray 04/19/24 04:32 IMPRESSION: Successful reduction of the acetabular component femoral head with some residual subluxation that may be due to hemarthrosis. The cephalic component does not appear to be adherent to the acetabulum. Hip CT 04/19/24 05:12 IMPRESSION: 1. Greater trochanter and iliopsoas bursitis, given rim thickening and enhancement, difficult to exclude periprosthetic infection in the setting of total hip arthroplasty. Differentials include traumatic and hemorrhagic bursitis. 2. Posttraumatic change of the right hip subcutaneous fat with a small crescent of collection adjacent the superficial muscle fascia which could represent Larry Yosvany given the clinical situation. 3. Multiple ill-defined hyperattenuating foci adjacent the prosthesis which likely represents intramuscular and extra muscular hemorrhage. 4. Filling defect within the deep femoral system of the right extremity. 5. Prominent periarticular lucency about the acetabular cup which likely indicates loosening, however difficult to exclude other etiologies of periprosthetic loosening (i.e. infection, particle disease). Chest CTA 04/19/24 05:13 IMPRESSION: 1. Bilateral multifocal pulmonary emboli centered about the segmental pulmonary arteries extending into the subsegmental arteries as detailed above. 2. Nonspecific lung findings which can be seen in acute on chronic bronchitis, small airway disease, air trapping, correlate clinically. ADDENDUM: 04/19/24 4730 ADDENDUM: The above findings and impression were discussed with the ordering provider on 04/19/2024 at 7:15 a.m. Venous Duplex 04/19/24 05:45 IMPRESSION: 1. Multifocal deep vein thromboses of the right extremity as noted above. 2. Possible partial superficial thrombophlebitis noted of the left saphenous vein. Laboratory Results WBC 8.50 10^3/uL (3.29-11.43) 04/19/24 02:00 RBC 2.36 10^6/uL (3.85-5.65) L 04/19/24 02:00 Hgb 7.30 g/dL (11.27-16.99) L 04/19/24 02:00 Hct 23.1 % (37-53) L 04/19/24 02:00 MCV 97.9 fl (82-101) 04/19/24 02:00 MCH 30.9 pg (27-33) 04/19/24 02:00 MCHC 31.6 g/dL (30-55) 04/19/24 02:00 RDW 13.8 % (12.1-15.1) 04/19/24 02:00 Plt Count 213 10^3/cmm (157-399) 04/19/24 02:00 MPV 8.8 fL (7.4-10.4) 04/19/24 02:00 Neut % (Auto) 82.4 % 04/19/24 02:00 Lymph % (Auto) 10.5 % 04/19/24 02:00 Owen % (Auto) 5.8 % 04/19/24 02:00 Eos % (Auto) 0.1 % 04/19/24 02:00 Baso % (Auto) 0.1 % 04/19/24 02:00 Neut # (Auto) 7.01 10^3/uL (1.8-7.7) 04/19/24 02:00 Lymph # (Auto) 0.9 10^3/uL (0.8-4.8) 04/19/24 02:00 Owen # (Auto) 0.5 10^3/uL (0.2-0.9) 04/19/24 02:00 Eos # (Auto) 0.0 10^3/uL (0.0-0.8) 04/19/24 02:00 Baso # (Auto) 0.0 10^3/uL (0.0-0.1) 04/19/24 02:00 Nucleated RBC % (auto) 0 % 04/19/24 02:00 Nucleated RBCs # 0.0 /100WBC 04/19/24 02:00 ESR 21 mm/hr (0-10) H 04/19/24 02:00 PT 14.50 SECONDS (12.1-14.9) 04/19/24 02:00 INR 1.09 (0.8-1.2) 04/19/24 02:00 APTT 32.7 SECONDS (23.9-36.7) 04/19/24 02:00 D-Dimer 16.93 ug/mLFEU (0-0.59) H 04/19/24 02:00 Sodium 132 mmol/L (136-145) L 04/19/24 02:00 Potassium 4.2 mmol/L (3.5-5.1) 04/19/24 02:00 Chloride 98 mmol/L (98-107) 04/19/24 02:00 Carbon Dioxide 24 mmol/L (22-29) 04/19/24 02:00 Anion Gap 14.2 (5-19) 04/19/24 02:00 BUN 22 mg/dL (8-23) 04/19/24 02:00 Creatinine 1.0 mg/dL (0.7-1.2) 04/19/24 02:00 GFR Calculation Not Reportable 04/19/24 02:00 Glucose 130 mg/dL (65-115) H 04/19/24 02:00 Estimat Average Glucose 114 04/19/24 02:00 Hemoglobin A1c 5.6 % (4.0-6.0) 04/19/24 02:00 Calculated Osmolality 279 mOsm/kg (285-295) L 04/19/24 02:00 Lactic Acid 1.2 mmol/L (0.5-2.2) 04/19/24 02:00 Calcium 8.6 mg/dL (8.5-10.5) 04/19/24 02:00 Iron 10 ug/dL (59-158) L 04/19/24 02:00 TIBC 159 mcg/dl 04/19/24 02:00 % Saturation 6.2 % (20-50) L 04/19/24 02:00 Unsat Iron Binding 149 ug/dL (112-347) 04/19/24 02:00 Ferritin 579 ng/mL (30-400) H 04/19/24 02:00 Total Bilirubin 0.3 mg/dL (0.15-1.2) 04/19/24 02:00 AST 98 U/L (0-40) H 04/19/24 02:00 ALT 60 U/L (0-41) H 04/19/24 02:00 Alkaline Phosphatase 73 U/L (40-130) 04/19/24 02:00 Troponin T Baseline 117 ng/L (0-15) H* 04/19/24 07:38 Troponin T 120 Minute 110.8 ng/L (0-15) H 04/19/24 09:36 Delta Troponin T -6.2 ABS# (0-10) L 04/19/24 09:36 C-Reactive Protein 121.6 mg/L (0.0-4.9) H 04/19/24 02:00 NT-Pro-B Natriuret Pep 3158 pg/mL (0-450) H 04/19/24 02:00 Total Protein 5.5 g/dL (6.6-8.7) L 04/19/24 02:00 Albumin 2.7 g/dL (3.5-5.2) L 04/19/24 02:00 Globulin 2.8 g/dL (1.3-4.6) 04/19/24 02:00 Triglycerides 124 mg/dL (0-150) 04/19/24 02:00 Cholesterol 80 mg/dL (0-200) 04/19/24 02:00 LDL Cholesterol, Calc 29 mg/dL (50-129) L 04/19/24 02:00 HDL Cholesterol 26 mg/dL (60-100) L 04/19/24 02:00 LDL/HDL Ratio 1.12 RATIO (0.00-3.22) 04/19/24 02:00 Cholesterol/HDL Ratio 3.08 mg/dL (1.0-5.00) 04/19/24 02:00 Procalcitonin 0.35 ng/mL (0-0.5) 04/19/24 02:00 Procalcitonin 0.36 ng/mL (0-0.5) 04/19/24 02:00 TSH 5.58 uIU/mL (0.27-4.20) H 04/19/24 02:00 Urine Color Yellow (Yellow) 04/19/24 02:55 Urine Appearance Clear (CLEAR) 04/19/24 02:55 Urine pH 5.5 (5-7) 04/19/24 02:55 Ur Specific [place] 1.019 (1.005-1.030) 04/19/24 02:55 Urine Protein Trace (Negative) A 04/19/24 02:55 Urine Glucose (UA) Negative (Normal) 04/19/24 02:55 Urine Ketones Negative (Negative) 04/19/24 02:55 Urine Blood Negative (Negative) 04/19/24 02:55 Urine Nitrate Negative (Negative) 04/19/24 02:55 Urine Bilirubin Negative (Negative) 04/19/24 02:55 Urine Urobilinogen 1.0 mg/dL (Negative) 04/19/24 02:55 Ur Leukocyte Esterase Negative (Negative) 04/19/24 02:55 Urine RBC 0-2 /hpf (0-2) 04/19/24 02:55 Urine WBC 0-5 /hpf (0-5) 04/19/24 02:55 Ur Squamous Epith Cells 0-5 /hpf (0-5) 04/19/24 02:55 Amorphous Sediment Not Reportable 04/19/24 02:55 Urine Bacteria None seen /hpf (NONE) 04/19/24 02:55 Hyaline Casts 3.71 /lpf 04/19/24 02:55 Coronavirus (PCR) Negative (Negative) 04/19/24 02:55 Influenza A (PCR) Negative (Negative) 04/19/24 02:55 Influenza Type B (PCR) Negative (Negative) 04/19/24 02:55 RSV (PCR) Negative (Negative) 04/19/24 02:55 Blood Type O Positive 04/19/24 05:35 Rho(D) Type Rh positive 04/19/24 05:35 Antibody Screen Negative 04/19/24 05:35 Crossmatch See Detail 04/19/24 05:35 All radiology interpretation(s) finalized by discharge Discharge Plan Discharge Patient Disposition: Admitted As Inpatient Admit Provider: Antonio Christensen Clinical Impression: Acute hypoxic respiratory failure, NSTEMI (non-ST elevated myocardial infarction), Bilateral pulmonary embolism, Failure of right total hip arthroplasty with dislocation of hip, Acute anemia Condition: Serious Coding Level of Care Code ED [facility] Firer for Tino Koehler
--- NOTE | 2024-04-19 02:23 | XRR_ITS ---
PROCEDURE INFORMATION: Exam: XR Chest Exam date and time: 04/19/2024 2:25 AM Age: 88 years old Clinical indication: Prior surgery; Surgery date: 6+ months; Surgery type: Pacer; Patient HX: EMS arrival from [facility] for fever. TECHNIQUE: Imaging protocol: Radiologic exam of the chest. Views: 1 view. COMPARISON: CR XR chest 1V portable [id number] 06/01/2021 14:59 FINDINGS: Tubes, catheters and devices: A left pacemaker device is present and its lead is in appropriate position. Lungs: Right infrahilar consolidation. There is incomplete lung expansion and crowding of the vascular markings. Pleural spaces: A small left pleural effusion. No pneumothorax. Heart/Mediastinum: Normal in size. Bones/joints: No acute fracture is identified. XR/XR chest 1V portable [id number] IMPRESSION: Right infrahilar consolidation that may represent atelectasis or in the appropriate clinical setting, pneumonia.
[2024-04-19 02:41] LABS: Basophils % 0.1 %; Eosinophils % 0.1 %; Hematocrit 23.1 % (37-53); Lymphocytes # 0.9 10^3/uL (0.8-4.8); Lymphocytes % 10.5 %; Mean Corpuscular HGB Conc 31.6 g/dL (30-55); Mean Corpuscular Hemoglobin 30.9 pg (27-33); Mean Corpuscular Volume 97.9 fl (82-101); Mean Platelet Volume 8.8 fL (7.4-10.4); Monocytes # 0.5 10^3/uL (0.2-0.9); Monocytes % 5.8 %; Neutrophils # 7.01 10^3/uL (1.8-7.7); Neutrophils % 82.4 %; Nucleated Red Blood Cells % 0 %; Platelet Count 213 10^3/cmm (157-399); Red Blood Count 2.36 10^6/uL (3.85-5.65); Red Cell Distribution Width 13.8 % (12.1-15.1)
[2024-04-19 02:47] LABS: INR 1.09 (0.8-1.2)
[2024-04-19] MEDS: morphine 4 mg/mL SDV 1 mL 2 MG IVP ×4 (02:47→22:13)
[2024-04-19] MEDS: sodium chloride 0.9% 2,381.37 ML 2381.37 ML IV (02:47)
[2024-04-19] MEDS: ondansetron 2 mg/ML SDV 2 mL 4 MG IVP ×2 (02:47→04:05)
[2024-04-19 02:48] LABS: Partial Thromboplastin Time 32.7 SECONDS (23.9-36.7)
[2024-04-19 02:55] LABS: Alanine Aminotransferase 60 U/L (0-41); Albumin Level 2.7 g/dL (3.5-5.2); Alkaline Phosphatase 73 U/L (40-130); Anion Gap 14.2 (5-19); Aspartate Amino Transferase 98 U/L (0-40); Blood Urea Nitrogen 22 mg/dL (8-23); C Reactive Protein 121.6 mg/L (0.0-4.9); Calcium 8.6 mg/dL (8.5-10.5); Carbon Dioxide 24 mmol/L (22-29); Chloride 98 mmol/L (98-107); Creatinine Clr Calc Pharmacy 50.5784; Globulin 2.8 g/dL (1.3-4.6); Glucose 130 mg/dL (65-115); Osmolality Calculated 279 mOsm/kg (285-295); Potassium 4.2 mmol/L (3.5-5.1); Sodium 132 mmol/L (136-145); Total Bilirubin 0.3 mg/dL (0.15-1.2); Total Protein 5.5 g/dL (6.6-8.7)
[2024-04-19 02:56] LABS: Lactic Sepsis W/Reflex 1.2 mmol/L (0.5-2.2)
[2024-04-19 03:00] LABS: Procalcitonin 0.35 ng/mL (0-0.5)
[2024-04-19 03:04] LABS: Bilirubin Urine Negative (Negative); Blood Urine Negative (Negative); Glucose Urine UA Negative (Normal); Ketones Urine Negative (Negative); Leukocyte Esterase Urine Negative (Negative); Nitrate Urine Negative (Negative); Protein Urine Trace (Negative); Specific Gravity, Urine 1.019 (1.005-1.030); Urine Appearance Clear (CLEAR); Urine Color Yellow (Yellow); pH Urine 5.5 (5-7)
[2024-04-19 03:08] LABS: Add Urine Microscopic? YES; Bacteria Urine None Seen /hpf; Hyaline Casts Urine 3.71 /lpf; RBC Urine 0-2 /hpf (0-2); Squamous Epithelial Cell Urine 0-5 /hpf (0-5); WBC Urine 0-5 /hpf (0-5)
[2024-04-19 03:38] LABS: Covid PCR NEGATIVE (Negative); Influenza A NEGATIVE (Negative); Influenza B NEGATIVE (Negative); Respiratory Syncytial Virus Ce NEGATIVE (Negative)
[2024-04-19] MEDS: midazolam 1 mg/mL INJ 2 mL IVP (04:05)
[2024-04-19] MEDS: ketamine 100 mg/mL Inj 5 mL 80 MG IVP (04:05)
--- NOTE | 2024-04-19 04:32 | XRR_ITS ---
PROCEDURE INFORMATION: Exam: XR Right Hip Exam date and time: 04/19/2024 4:12 AM Age: 88 years old Clinical indication: Injury or trauma; Other: Dislocation; Right; Prior surgery; Surgery date: <1 month; Surgery type: RT deepak; Patient HX: Check S/P RT hip reduction; Additional info: Post reduction TECHNIQUE: Imaging protocol: Radiologic exam of the right hip. Views: 1 view hip with pelvis when performed. COMPARISON: CR (PELVIS, ) 19/04/2024 02:25 FINDINGS: Tubes, catheters and devices: The previously described superolateral dislocation of the prosthetic femoral head and acetabular component has been reduced. There is persistent subluxation that may be secondary to hemarthrosis. Bones/joints: No acute fracture. Soft tissues: Vascular calcifications are present. XR/XR hip RT 1V wo/w pel [id number] IMPRESSION: Successful reduction of the acetabular component femoral head with some residual subluxation that may be due to hemarthrosis. The cephalic component does not appear to be adherent to the acetabulum.
--- NOTE | 2024-04-19 05:12 | CTR_ITS ---
PROCEDURE INFORMATION: Exam: CT Right Lower Extremity, Hip Exam date and time: 04/19/2024 5:54 AM Age: 88 years old Clinical indication: Other: Fever/anemia/ dislocation; Prior surgery; Surgery date: <1 month; Surgery type: RT deepak; Patient HX: Anemia with low grade fever. Patient had dislocation this morning of recent deepak. TECHNIQUE: Imaging protocol: CT of the right lower extremity with intravenous contrast was performed. Exam focused on the hip. Radiation optimization: All CT scans at this facility use at least one of these dose optimization techniques: automated exposure control; mA and/or kV adjustment per patient size (includes targeted exams where dose is matched to clinical indication); or iterative reconstruction. Contrast material: OMNI 350; Contrast volume: 80 ml; Contrast route: INTRAVENOUS (IV); COMPARISON: CR XR hip RT 1V wo/w pel [id number] 04/19/2024 4:12 AM RADIATION DOSE METRICS: Total DLP (mGy-cm): 811.72 FINDINGS: Bones/joints: Subcutaneous stranding is seen about the right hip. Right greater trochanter bursal effusion is seen with rim thickening and enhancement. Prominence periarticular lucency is noted of the acetabular cup. Femoral head component is well seated within the acetabulum. Soft tissues: There is a small crescent like collection immediately superficial to the superficial muscle fascia measuring about 7.9 x 1.1 cm (series 11, image 60). Similar appearance of the iliopsoas bursa extending into the periprosthetic anteriorly along the prosthesis. There are irregular periprosthetic foci of hyperattenuation indicating hemorrhage which may be intramuscular in location. Vasculature: Filling defect is noted within the common femoral vein extending into the greater saphenous and deep venous structures of the proximal right lower extremity. Heavy calcified atherosclerotic disease. Peripheral arterial vascular disease. Bowel: Heavy colonic stool burden. CT/CT hip RT w con [id number] IMPRESSION: 1. Greater trochanter and iliopsoas bursitis, given rim thickening and enhancement, difficult to exclude periprosthetic infection in the setting of total hip arthroplasty. Differentials include traumatic and hemorrhagic bursitis. 2. Posttraumatic change of the right hip subcutaneous fat with a small crescent of collection adjacent the superficial muscle fascia which could represent Larry Yosvany given the clinical situation. 3. Multiple ill-defined hyperattenuating foci adjacent the prosthesis which likely represents intramuscular and extra muscular hemorrhage. 4. Filling defect within the deep femoral system of the right extremity. 5. Prominent periarticular lucency about the acetabular cup which likely indicates loosening, however difficult to exclude other etiologies of periprosthetic loosening (i.e. infection, particle disease).
--- NOTE | 2024-04-19 05:13 | CTR_ITS ---
PROCEDURE INFORMATION: Exam: CTA Chest With Contrast Exam date and time: 04/19/2024 5:50 AM Age: 88 years old Clinical indication: Fever and shortness of breath; Prior surgery; Surgery date: 6+ months; Surgery type: Pacer. Patient HX: SOB with fever and anemia. Patient sustained dislocation of recent deepak. TECHNIQUE: Imaging protocol: Computed tomographic angiography of the chest with contrast. Exam focused on the arteries. 3D rendering (Not supervised by radiologist): MIP and/or 3D reconstructed images were created by the technologist. Radiation optimization: All CT scans at this facility use at least one of these dose optimization techniques: automated exposure control; mA and/or kV adjustment per patient size (includes targeted exams where dose is matched to clinical indication); or iterative reconstruction. Contrast material: OMNI 350; Contrast volume: 69 ml; Contrast route: INTRAVENOUS (IV); COMPARISON: CT angio chest PE protcl [id number] 04/23/2018 2:13 PM RADIATION DOSE METRICS: Total DLP (mGy-cm): 380.1 FINDINGS: Tubes, catheters and devices: Left chest wall pacer device with unremarkable leads. Pulmonary arteries: Subsegmental pulmonary artery defect in the posterolateral branch. Right posterior segmental pulmonary artery filling defect extending into the proximal right upper and right lower lobe arteries. Segmental filling defect extending into the subsegmental branches of the posteroinferior left lower lobe pulmonary arteries. Aorta: Moderate to severe atherosclerotic disease of the visualized aorta. Lungs: Diffuse distal bronchial wall thickening. Nonspecific basilar infiltrates, likely reflective of atelectasis/scarring. Right lower lobe basilar granuloma. Scattered mild/subtle mosaicism. Pleural spaces: Unremarkable. No pneumothorax. No pleural effusion. Heart: Mitral annulus calcifications. Heart RV/LV ratio: RV to LV ratio of 0.9. Coronary arteries: Heavy coronary calcified atherosclerotic disease. Lymph nodes: Unremarkable. No enlarged lymph nodes. Liver: Diffuse hyperattenuation of the liver. Spleen: Splenic granulomas. Bones/joints: Findings compatible with DISH. Diffuse degenerative change of the visualized osseous structures. Soft tissues: Unremarkable. CT/CT angio chest PE protcl [id number] IMPRESSION: 1. Bilateral multifocal pulmonary emboli centered about the segmental pulmonary arteries extending into the subsegmental arteries as detailed above. 2. Nonspecific lung findings which can be seen in acute on chronic bronchitis, small airway disease, air trapping, correlate clinically.
[2024-04-19 05:16] LABS: Erythrocyte Sedimentation Rate 21 mm/hr (0-10)
--- NOTE | 2024-04-19 05:26 | PM.HP ---
Providers/Chief Complaint Primary Care Provider: Supriya Arango Chief Complaint: WEAKNESS History of Present Illness James Villasenor is a 88 year old male With a past medical history of pacemaker placement, nonischemic cardiomyopathy, hypertension, GERD, dyslipidemia who presents to [facility] due to right sided hip pain. Patient had a fall and subsequent right hip replacement at [facility] in [place]. He was then discharged to intermediate facility, he has been doing well at the intermediate facility he does feel that he has been overdoing it but denies any traumas, no falls, no injuries. He tells me that since Friday he has been less mobile, having severe right hip pain, he also had a fever, he denies any shortness of breath but is hypoxic, he he required oxygen after his surgery, no dysuria, no flank pain, no cough, he was also found to have an acute anemia, denies any bloody or black stools, does report fatigue and tiredness Review of Systems Const: Denies: chills Card: Denies: chest pain Resp: Denies: dyspnea GI: Denies: abdominal pain : Denies: flank pain or difficulty urinating Musc: Reports: extremity pain Medications/Allergies Home Medications Medication Instructions Recorded Confirmed Last Taken Type acetaminophen 650 mg 650 mg PO Q12H PRN Pain 06/21/19 03/24/23 Unknown History tablet,extended release omeprazole 40 mg capsule,delayed 40 mg PO DAILY 06/21/19 03/24/23 05/09/20 History release cholecalciferol (vitamin D3) 25 25 mcg PO DAILY 03/07/20 03/24/23 05/09/20 History mcg (1,000 unit) capsule ferrous sulfate 325 mg (65 mg 325 mg PO DAILY 03/07/20 03/24/23 05/09/20 History iron) tablet diclofenac sodium 1 % topical gel 2 g topical QID PRN 03/06/21 03/24/23 Unknown History (Arthritis Pain (diclofenac)) finasteride 5 mg tablet 5 mg PO DAILY 03/06/21 03/24/23 Unknown History lisinopril 2.5 mg tablet 2.5 mg PO DAILY 03/06/21 03/24/23 Unknown History mupirocin 2 % topical ointment 1 applic topical BID #22 grams 03/06/21 03/24/23 Unknown Rx sertraline 50 mg tablet 25 mg PO DAILY 03/06/21 03/24/23 Unknown History hydroxyzine HCl 10 mg tablet 10 mg PO TID PRN 11/26/21 03/24/23 Unknown History triamcinolone acetonide 0.1 % 1 applic topical BID #80 grams 11/26/21 03/24/23 Unknown Rx topical ointment furosemide 20 mg tablet (Lasix) 20 mg PO DAILY 12/04/21 03/24/23 Unknown History albuterol sulfate 90 mcg/actuation g inhalation 12/26/21 03/24/23 Unknown History aerosol inhaler budesonide-formoterol HFA 160 g inhalation 12/26/21 03/24/23 Unknown History mcg-4.5 mcg/actuation aerosol inhaler (Symbicort) hydrocodone 10 mg-acetaminophen 0.5 tab PO 12/26/21 03/24/23 Unknown History 325 mg tablet levothyroxine 50 mcg tablet tab PO 12/26/21 03/24/23 Unknown History (Euthyrox) amiodarone 200 mg tablet 400 mg (2 x 200 mg) PO DAILY #180 05/21/23 Unknown Rx tabs Allergies Allergy/AdvReac Type Severity Reaction Status Date / Time Sulfa (Sulfonamide Allergy Unknown Unknown Verified 04/19/24 02:05 Antibiotics) PFSH Acute PFSH: Medical History Aortic aneurysm Surgery History of nonmelanoma skin cancer Right inguinal hernia BPH (benign prostatic hyperplasia) Dyslipidemia HTN (hypertension), benign UTI (urinary tract infection) GERD (gastroesophageal reflux disease) History of skin cancer Anxiety ICD (implantable cardioverter-defibrillator) in place Cardiomyopathy CHF (congestive heart failure) Surgical History Status post right inguinal hernia repair (05/10/20) H/O excision of mass (05/10/20) S/P cardiac cath H/O colonoscopy yrs ago S/P internal cardiac defibrillator procedure S/P rotator cuff surgery Family History Mother , CA age 58 Cancer Father , CA age 82 Cancer Sister Cancer Denies family history of Anesthesia complication Bleeding disorder Social History Smoking and tobacco/nicotine status: former use of tobacco/nicotine Alcohol intake: never Substance/Drug Use: never Household members: spouse Marital status: Current occupational status: retired Vitals/I&O/Wt Last Vital Signs Temp 99.7 F H 04/19/24 01:56 Pulse 66 04/19/24 04:36 Resp 16 04/19/24 04:36 BP 119/56 04/19/24 04:36 Pulse Ox 100 04/19/24 04:31 O2 Del Method Nasal Cannula 04/19/24 04:36 04/18/24 04/18/24 04/19/24 14:59 22:59 06:59 Intake Total 400 / 400 Balance 400 / 400 Weight last 48 hrs Weight 79.379 kg Physical Exam Const: COMMON NORMALS: no acute distress and patient oriented x3 Eye: COMMON NORMALS: Equal, round and reactive pupils present Resp: COMMON NORMALS: normal respiratory effort, No retractions, No use of accessory muscles and clear to auscultation bilaterally AUSCULTATION: clear to auscultation bilaterally Cardio: COMMON NORMALS: no JVD, regular rate, regular rhythm, S1 normal heart sound present and S2 normal heart sound present RATE: regular rate RHYTHM: regular rhythm HEART SOUNDS: S1 normal heart sound present and S2 normal heart sound present GI: COMMON NORMALS: Normal to inspection, nondistended, normoactive bowel sounds present, Soft to palpation and non-tender Extremity: COMMON NORMALS: no pedal edema Neuro: COMMON NORMALS: patient oriented x3, CN's II-XII intact bilaterally and moves all extremities Psych: COMMON NORMALS: mental status grossly normal Data 04/19/24 02:00 04/19/24 02:00 Micro: Microbiology 04/19/24 02:00 Blood Culture - Preliminary Blood SPECIMEN COLLECTED A&P Assessment and plan (1) Failure of right total hip arthroplasty with dislocation of hip: (2) Fever: (3) Acute anemia: (4) HTN (hypertension), benign: (5) CHF (congestive heart failure): Qualifiers: Heart failure type: systolic Heart failure chronicity: chronic Qualified Code(s): I50.22 - Chronic systolic (congestive) heart failure (6) Cardiomyopathy: Qualifiers: Cardiomyopathy type: other Qualified Code(s): I42.8 - Other cardiomyopathies (7) ICD (implantable cardioverter-defibrillator) in place: Plan Right hip dislocation ? With recent history of right hip arthroplasty ? With subsequent reduction in the emergency room ? Monitor, will have to discuss with orthopedic service about ambulatory status Fever -Elevated CRP 123 -Source is unclear -UA no evidence of UTI -Chest x-ray no focal pneumonia -Will do CT angiogram of the chest as patient has been relatively immobile for the last 2 days -Concern for right hip prosthetic infection, CT of the right hip, ESR, although surgical site looks clean and dry -If indeed patient has evidence of right hip prosthetic infection, will have to discuss with orthopedic service if they are willing to evaluate patient here, or would they recommend transfer back to [facility] where his original surgery was done Acute anemia -Hemoglobin 7.3 -Hold blood thinners -Iron studies, Hemoccult stool -Continues 1 unit PRBC Transaminitis, monitor Full code SCDs for DVT prophylaxis Possible transfer back to [facility] versus inpatient admission here at [facility] Attestations Medical Necessity Statement*: Patient requires hospitalization for right hip dislocation, fevers, acute anemia, inpatient, greater than 2 midnights Diagnoses Failure of right total hip arthroplasty with dislocation of hip T84.020A Fever R50.9 Acute anemia D64.9 HTN (hypertension), benign I10 Chronic systolic congestive heart failure I50.22 Heart failure type: systolic Heart failure chronicity: chronic Other cardiomyopathy I42.8 Cardiomyopathy type: other ICD (implantable cardioverter-defibrillator) in place Z95.810
[2024-04-19 05:31] LABS: D Dimer 16.93 ug/mLFEU (0-0.59)
[2024-04-19 05:36] LABS: Procalcitonin 0.36 ng/mL (0-0.5)
--- NOTE | 2024-04-19 05:45 | USR_ITS ---
PROCEDURE INFORMATION: Exam: US Duplex Lower Extremity Veins, Bilateral Exam date and time: 04/19/2024 7:05 AM Age: 88 years old Clinical indication: Swelling (edema) of limb; Lower extremity, bilateral TECHNIQUE: Imaging protocol: Real-time duplex ultrasound of the bilateral extremities with 2-D dunbar scale, color Doppler flow and spectral waveform analysis including responses to compression and other maneuvers (when performed) with image documentation. Complete exam focused on the lower extremity veins. COMPARISON: CT hip RT w con [id number] 04/19/2024 5:54 AM FINDINGS: Right deep veins: Filling defect/thrombus noted in the right profunda which extends cranially into the common femoral vein as well as the proximal aspect of the right great saphenous vein. Filling defect/thrombosis noted in the right peroneal is and right posterior tibialis vein. Left deep veins: Unremarkable. The common femoral, femoral, proximal profunda femoral and popliteal veins are patent without thrombus. Normal Doppler waveforms. Normal compressibility and/or augmentation response. Superficial veins: Partial superficial thrombosis noted of the left saphenous vein. Soft tissues: Unremarkable. US/[place] [id number] IMPRESSION: 1. Multifocal deep vein thromboses of the right extremity as noted above. 2. Possible partial superficial thrombophlebitis noted of the left saphenous vein.
--- NOTE | 2024-04-19 05:46 | ECG_ITS ---
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 Measurements Intervals [place] Heart Rate: 64 P: 0 MA: 0 QRS: -66 QRSD: 166 T: 17 QT: 424 QTc: 441 Interpretive Statements SUPRAVENTRICULAR RHYTHM INTRAVENTRICULAR CONDUCTION DELAY [130+ ms QRS DURATION] INFERIOR MYOCARDIAL INFARCTION , PROBABLY OLD [40+ ms Q WAVE AND/OR ST/T ABNORMALITY IN II/aVF] Compared to ECG 04/19/2024 07:26:06 Intraventricular conduction delay now present Right bundle-branch block no longer present Myocardial infarct finding still present Electronically Signed On 04-19-2024 20:05:01 DIGITAL MARKETING STRATEGIST by Gibson Harris M.D. [id number]
[2024-04-19] MEDS: iohexol 350 mg/mL 500 mL Btl (per mL) IV (06:02)
[2024-04-19 06:04] LABS: Estmated Average Glucose 114; Hemoglobin A1C 5.6 % (4.0-6.0)
[2024-04-19 06:12] LABS: Chol HDL Ratio 3.08 mg/dL (1.0-5.00); Cholesterol 80 mg/dL (0-200); Ferritin 579 ng/mL (30-400); HDL Cholesterol 26 mg/dL (60-100); Iron 10 ug/dL (59-158); LDL Cholesterol Calculated 29 mg/dL (50-129); LDL HDL Ratio 1.12 RATIO (0.00-3.22); NT Pro B Type Natriuretic Pept 3158 pg/mL (0-450); Percent Saturation 6.2 % (20-50); Thyroid Stimulating Hormone 5.58 uIU/mL (0.27-4.20); Total Iron Binding Capacity 159 mcg/dl; Triglycerides 124 mg/dL (0-150); Unsaturated Iron Binding 149 ug/dL (112-347)
[2024-04-19] MEDS: pantoprazole 40 mg SDV IVP ×2 (07:01→17:27)
--- NOTE | 2024-04-19 07:15 | USCV_ITS ---
James Villasenor Age: 88 Gender: M : 1935 Exam Date: 04/19/2024 09:13 Ordering Phys: Antonio Christensen MD Technologist: Exam Location: [facility] [place] Indication: ? mi BP: 114 / 63 HR: 66 Rhythm: Sinus Technical Quality: Adequate MEASUREMENTS (Male / Female) Normal Values 2D ECHO LV Diastolic Diameter PLAX 4.4 cm 4.2 - 5.9 / 3.9 - 5.3 cm IVS Diastolic Thickness 1.2 cm 0.6 - 1.0 / 0.6 - 0.9 cm IVS Systolic Thickness 1.9 cm LVPW Diastolic Thickness 1.4 cm 0.6 - 1.0 / 0.6 - 0.9 cm LVPW Systolic Thickness 2.0 cm LVOT Diameter 2.0 cm LV Ejection Fraction 2D Teich 64.0 % LV Ejection Fraction MOD 4C 57.0 % LV Ejection Fraction MOD 2C 53.6 % LV Ejection Fraction 2C AL 55.6 % LA Diameter 4.3 cm RA Systolic Volume 4C AL 79.9 ml RA Systolic Volume 4C MOD 80.4 ml Aorta at Sinotubular Diameter 3.1 cm M-MODE LA Ao Ratio MM 1.2 AV Cusp Separation MM 2.3 cm DOPPLER AV Peak Velocity 279.0 cm/s LVOT Peak Velocity 111.0 cm/s AV Area Cont Eq vti 1.6 cm squared AV Area Cont Eq pk 1.3 cm squared MV Area PHT 3.3 cm squared Mitral E to A Ratio 0.7 TV Peak Velocity 202.0 cm/s TR Peak Velocity 308.0 cm/s TR Peak Gradient 37.9 mmHg TV Peak E Velocity 69.0 cm/s PV Peak Velocity 104.0 cm/s FINDINGS Left Ventricle Normal left ventricular size and systolic function, EF 55%.no regional wall motion abnormalities. Grade I/IV diastolic dysfunction (abnormal relaxation filling pattern), normal to mildly elevated filling pressures. Right Ventricle Catheter/pacemaker wire in the right ventricular cavity. Right Atrium Catheter/pacemaker wire in the right atrial cavity. Left Atrium Mildly increased left atrial size. Mitral Valve Mild mitral annular calcification. Aortic Valve Mild aortic valve stenosis, mean gradient 14.8 mmHg, JUAN 1.6 cm squared. Tricuspid Valve Mild tricuspid valve regurgitation. Estimated pulmonary artery peak systolic pressure 41 mmHg Pulmonic Valve Pulmonic valve not well visualized. Pericardium No pericardial effusion. Aorta Normal aortic annulus size. IVC Inferior vena cava not visualized. CONCLUSIONS Normal left ventricular size and systolic function, EF 55%.no regional wall motion abnormalities. Grade I/IV diastolic dysfunction (abnormal relaxation filling pattern), normal to mildly elevated filling pressures. Catheter/pacemaker wire in the right ventricular cavity. Mildly increased left atrial size. Mild mitral annular calcification. Mild aortic valve stenosis, mean gradient 14.8 mmHg, JUAN 1.6 cm squared. Mild tricuspid valve regurgitation. Estimated pulmonary artery peak systolic pressure 41 mmHg. There is no pericardial effusion. There are no intracardiac masses. Compared to the study from 12/21/2017, there is significant improvement in the LV ejection fraction from 40% to 55% Dr Amina Oliver MD FACC (Electronically Signed) Final Date: 19 April 2024 20:40 S
--- NOTE | 2024-04-19 07:26 | ECG_ITS ---
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 Measurements Intervals [place] Rate: 65 P: 0 [place]: 0 QRS: -83 QRSD: 191 T: 34 QT: 461 QTc: 481 Interpretive Statements UNCERTAIN IRREGULAR RHYTHM RIGHT BUNDLE BRANCH BLOCK [120+ ms QRS DURATION, UPRIGHT V1, 40+ ms S IN I/aVL/V4/V5/V6] INFERIOR MYOCARDIAL INFARCTION , OF INDETERMINATE AGE [40+ ms Q WAVE AND/OR ST/T ABNORMALITY IN II/aVF] Compared to ECG 07/28/2021 16:59:25 Sinus bradycardia no longer present Short OH interval no longer present Myocardial infarct finding still present Electronically Signed On 04-19-2024 20:29:25 COST MANAGER by Gibson Harris M.D. [id number]
[2024-04-19] MEDS: sodium chloride 0.9% 100 mL Bag 50 ML IV (08:03)
[2024-04-19 08:07] LABS: Troponin(5th) Baseline 117 ng/L (0-15)
[2024-04-19] MEDS: heparin drip 25,000 UNIT/500 ML PREMIX 22 UNIT IV (08:59)
[2024-04-19] MEDS: heparin 5,000 unit/mL INJ 1 mL IVP (09:04)
[2024-04-19] MEDS: acetaminophen 325 mg Tablet 650 MG PO (09:50)
[2024-04-19] MEDS: meropenem 500 mg SDV IVP ×2 (09:52→17:28)
[2024-04-19] MEDS: sodium chloride 0.9% 1,000 ML 75 ML IV (09:59)
[2024-04-19] MEDS: VANCOMYCIN ADD-Vantage 1,000 MG in 0.9% NaCl ADD-Vantage 250 ML 250 MG IV (10:01)
[2024-04-19 10:24] LABS: Troponin 5 2HR Delta -6.2 ABS# (0-10)
[2024-04-19 10:26] LABS: Troponin 5 2HR 110.8 ng/L (0-15)
[2024-04-19 11:59] LABS: Hematocrit 25.6 % (37-53)
[2024-04-19] MEDS: sucralfate 1 gm/10 mL Oral Liq UDC PO ×3 (12:00→22:10)
--- NOTE | 2024-04-19 12:12 | ECG_ITS ---
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 Measurements Intervals [place] Rate: 58 P: 0 WV: 0 QRS: -71 QRSD: 182 T: 12 QT: 480 QTc: 472 Interpretive Statements UNCERTAIN REGULAR RHYTHM INTRAVENTRICULAR CONDUCTION DELAY [130+ ms QRS DURATION] INFERIOR MYOCARDIAL INFARCTION , PROBABLY OLD [40+ ms Q WAVE AND/OR ST/T ABNORMALITY IN II/aVF] Compared to ECG 04/19/2024 09:32:48 No significant changes Electronically Signed On 04-19-2024 20:27:18 TELEVISION RECEIVER ANALYZER by Gibson Harris M.D. [id number]
--- NOTE | 2024-04-19 12:52 | PM.CCNAC ---
Critical Care Event Note The high probability of a clinically significant, sudden or life threatening deterioration of the patient's [] system(s) required my full and direct attention, intervention and personal management. The critical care time is as shown. This time is in addition to time spent performing any reported procedures but includes the following: [x] Data and vital sign review and interpretation [x] Patient assessment, examination and intervention [x] Documentation [x] Medication orders and management Critical Care Time Code activated: No Critical Care Time (min): 45 Additional information about critical care time: - Patient was seen again down in the emergency room, found to have a troponin of 117, BNP over 3100, discussed with him that I am highly suspicious that he has hypercoagulable events given his relative immobility, he has hypoxia, his recent hip surgery -CT angiogram of the chest ordered -I also discussed with him that given his low-grade temperature, elevated CRP I am going to do a CT of the right hip to ensure that he does not have any periprosthetic hip infection -cT angiogram the chest, spoke to Conner CANDELARIA about test results, patient has evidence of bilateral multifocal pulmonary emboli centered about the segmental pulmonary arteries extending into the subsegmental arteries -He also has nonspecific lung findings, diffuse distal bronchial wall thickening, nonspecifically basal infiltrates, suspicious for pneumonia -Venous ultrasound shows multifocal deep vein thrombosis of right lower extremity, -Hemoglobin 7.3, receiving 1 unit PRBC -Given hypoxia, CT findings, venous ultrasound findings will start on heparin drip for now -Started on broad-spectrum antibody therapy vancomycin, meropenem for pneumonia -Spoke to Dr. Harris about test results, given patient's acute anemia, evidence of iron deficiency anemia, although he has no complaints of bloody black stools, the issue is in terms of anticoagulant therapy and his acute anemia, discussed the need for IVC filter placement, recommended continued anticoagulant therapy in the meantime, plan on IVC filter placement later on in the afternoon -Spoke to patient and about test results, unfortunately patient has had hypercoagulable event after his relative immobility after his right hip surgery including bilateral PEs, right lower extremity DVT with evidence of NSTEMI, elevated BNP, echocardiograms pending, in this situation would recommend anticoagulant therapy however the long-term anticoagulant therapy remains a difficult question, as he has acute anemia hemoglobin 7.3 requiring PRBC and evidence of iron deficiency anemia I certainly this is a difficult situation, on the 1 hand he has a high risk of bleeding on long-term anticoagulant therapy but has a high risk of developing worsening blood clots without anticoagulant therapy, discussed in this situation would recommend IVC filter discussed the risk and benefits of IVC filter placement, patient and voiced understanding, all question answered, agreed to proceed -Keep n.p.o., IVC filter placement later on this afternoon, continue heparin drip for now -Will likely discontinue heparin drip after IVC filter has been placed ? Discussed also concerns for pneumonia as a cause of patient's low-grade fevers, elevated CRP ? But given his history of hip dislocation prosthetic hip replacement without any trauma or injury concerns for possible prosthetic joint infection ? CT of the right hip has been ordered and waiting on the test results discussed with radiology, and patient's orthopedic physician at [facility] [place] Dr. Cheng -CT of the right hip results CT/CT hip RT w con [id number] IMPRESSION: 1. Greater trochanter and iliopsoas bursitis, given rim thickening and enhancement, difficult to exclude periprosthetic infection in the setting of total hip arthroplasty. Differentials include traumatic and hemorrhagic bursitis. 2. Posttraumatic change of the right hip subcutaneous fat with a small crescent of collection adjacent the superficial muscle fascia which could represent Larry Yosvany given the clinical situation. 3. Multiple ill-defined hyperattenuating foci adjacent the prosthesis which likely represents intramuscular and extra muscular hemorrhage. 4. Filling defect within the deep femoral system of the right extremity. 5. Prominent periarticular lucency about the acetabular cup which likely indicates loosening, however difficult to exclude other etiologies of periprosthetic loosening (i.e. infection, particle disease). -Spoke to transfer center, then spoke to Dr. Cheng at [facility] in [place] about imaging results, he also reviewed the imaging -After discussing the case in detail, he recommended medical management, if patient's condition worsens he develops fevers worsening inflammatory markers then would recommend transfer for further evaluation for concern for possible periprosthetic joint infection, but for now the suspicion is low ? Recommended anterior hip precautions, abduction pillow while in bed, weightbearing as tolerated ? As patient is on anticoagulant therapy awaiting IVC filter placement, monitor hemoglobin every 4 hours, Protonix, Carafate Coding Level of Care Code Acute Code for Chg Fwd
--- NOTE | 2024-04-19 13:01 | P.PN_ITS ---
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, complains of right hip pain Vitals/I&O/Wt Last Vital Signs Temp 98.9 F 04/19/24 11:04 Pulse 58 L 04/19/24 11:04 Resp 18 04/19/24 09:24 BP 117/51 04/19/24 11:04 Pulse Ox 100 04/19/24 11:04 O2 Del Method Room Air 04/19/24 08:09 O2 Flow Rate 3 04/19/24 05:34 04/18/24 04/19/24 04/19/24 22:59 06:59 14:59 Intake Total 400 / 400 2981.37 / 2981.37 Balance 400 / 400 2981.37 / 2981.37 Weight last 48 hrs Weight 79.379 kg Physical Exam 2 Const: COMMON NORMALS: no acute distress and patient oriented x3 Resp: COMMON NORMALS: normal respiratory effort, No retractions, No use of accessory muscles and clear to auscultation bilaterally AUSCULTATION: clear to auscultation bilaterally Cardio: COMMON NORMALS: regular rate, regular rhythm, S1 normal heart sound present and S2 normal heart sound present RATE: regular rate RHYTHM: r egular rhythm HEART SOUNDS: S1 normal heart sound present and S2 normal heart sound present GI: COMMON NORMALS: Normal to inspection, nondistended, normoactive bowel sounds present and non-tender Extremity: COMMON NORMALS: no pedal edema NARRATIVE EXTREMITY EXAM: DP PT pulses right lower extremity are present Neuro: COMMON NORMALS: patient oriented x3 Psych: COMMON NORMALS: mental status grossly normal Data 04/19/24 11:53 04/19/24 02:00 Micro: Microbiology 04/19/24 07:33 Blood Culture - Preliminary Blood SPECIMEN COLLECTED 04/19/24 02:00 Blood Culture - Preliminary Blood SPECIMEN COLLECTED A&P Assessment and plan (1) Bilateral pulmonary embolism: (2) Right leg DVT: (3) Acute anemia: (4) GI bleed: (5) NSTEMI (non-ST elevated myocardial infarction): (6) Failure of right total hip arthroplasty with dislocation of hip: (7) Pneumonia: (8) Acute hypoxic respiratory failure: Plan Acute hypoxic respiratory failure ? Secondary to bilateral PEs ? Secondary to pneumonia ? CT/CT angio chest PE protcl [id number] IMPRESSION: 1. Bilateral multifocal pulmonary emboli centered about the segmental pulmonary arteries extending into the subsegmental arteries as detailed above. 2. Nonspecific lung findings which can be seen in acute on chronic bronchitis, small airway disease, air trapping, correlate clinically. # Complicated by acute anemia, concerns for slow GI bleed ? Plan ? Continue vancomycin -continue meropenem ? DuoNeb ? Follow blood cultures ? Monitor respiratory status closely ? For now continue heparin drip, n.p.o., plan on IVC filter placement later on in the afternoon, with subsequent discontinuation of anticoagulant therapy - Right lower extremity [place] US/[place] [id number] IMPRESSION: 1. Multifocal deep vein thromboses of the right extremity as noted above. 2. Possible partial superficial thrombophlebitis noted of the left saphenous vein. - As above NSTEMI ? Likely secondary to bilateral PEs as above ? Continue heparin drip for now -Cardiac echo Acute anemia ? With evidence of early deficiency anemia -Protonix, Carafate -Monitor hemoglobin every 4 hours -Monitor hemoglobin in 4 hours -Transfuse if hemoglobin less than 8 Transaminitis, monitor Full code # SCDs for DVT prophylaxis, To heparin drip will eventually get a IVC filter placement Attestations 2 Medical Necessity Statement*: Patient requires hospitalization, inpatient, greater than 2 midnights, bilateral PEs, right lower extremity DVT, anemia, GI bleed, NSTEMI, pneumonia, acute hypoxic respiratory failure Diagnoses Bilateral pulmonary embolism I26.99 Right leg DVT I82.401 Acute anemia D64.9 GI bleed K92.2 NSTEMI (non-ST elevated myocardial infarction) I21.4 Failure of right total hip arthroplasty with dislocation of hip T84.020A Pneumonia J18.9 Acute hypoxic respiratory failure J96.01
[2024-04-19 14:11] LABS: Troponin 5 6HR Delta -2.8 ng/L (0-12)
[2024-04-19 14:12] LABS: Troponin 5 6HR 114.2 ng/L (0-15)
--- NOTE | 2024-04-19 16:07 | P.CONIM_ITS ---
<Statement entered by Gibson Harris M.D - 04/20/24 07:46> Patient was evaluated and cared for in conjunction with an advanced practice practitioner. I personally examined the patient and reviewed the chart and all pertinent data including imaging, telemetry, and laboratory results. I discussed the patient in detail with the advanced practice practitioner. Please see their note for complete consult, results and agreed upon plan of care for the patient. Patient has shortness of breath. GENERAL: Patient is alert and oriented HEART: Regular S1 and S2 LUNGS: Diminished air entry bilaterally EXTREMITIES: Lower extremities with 1+ edema Assesment and Plan (1) Bilateral pulmonary embolism (2) Right leg DVT (3) Acute anemia (4) GI bleed (5) Troponin elevation (6) Failure of right total hip arthroplasty with dislocation of hip (7) Pneumonia (8) Acute hypoxic respiratory failure Patient has presented with bilateral PEs, has extensive DVT of right lower extremity. Mobility is limited because of recent hip fracture. Has blood loss anemia with source still not completely clear. Receiving blood transfusions. We will proceed with IVC filter placement as continuation of anticoagulation is questionable. Risks and benefits discussed with patient. NPO past midnights. Can give trial of heparin for now. Monitor H and H Troponin elevation likely secondary to demand ischemia. Thank you for involving us with care of this patient. We will continue to follow. please call with questions. Providers/Reason For Consult 2 Consulting Physician/Specialty*: Dr. Harris Reason for Consult*: IVC filter placement Requesting Physician: Dr. Christensen Attending Physician: Antonio Christensen MD Primary Care Provider: Supriya Arango History of Present Illness History of Present Illness James Villasenor is a 88 year old male with a past medical history of pacemaker placement, nonischemia cardiomyopathy, hypertension, GERD, dyslipidemia who presented to our emergency room today from [place]. He had surgery for his hip fracture in [place] around March 30. He states he progressed well after this but yesterday started develop severe weakness and pain in his right hip. He apparently had a fever as well. Initially there was question of infection of the area. A hip x-ray was done that showed right superior lateral dislocation of the femoral head. He underwent reduction of this successfully. He did have some residual subluxation. CT of the hip showed posttraumatic change of the right hip with multiple ill-defined hyperattenuating foci adjacent to the prosthesis which represented some intramuscular and extravascular hemorrhage. Also was incidentally found was a DVT in the right lower extremity. CTA of the chest showed bilateral multifocal pulmonary emboli. H&H was low upon admission at 7.3/. He was given 1 unit of blood. This did rise to 8. He has no evidence of active hemorrhage at this time. Dr. Christensen had reviewed patient's images of the hip with the surgeon and they did not believe there was a periprosthetic hip infection. Medications/Allergies Home Medications Medication Instructions Recorded Confirmed Last Taken Type acetaminophen 650 mg 650 mg PO Q12H PRN Pain 06/21/19 04/19/24 Unknown History tablet,extended release ferrous sulfate 325 mg (65 mg 325 mg PO DAILY 03/07/20 04/19/24 05/09/20 History iron) tablet furosemide 20 mg tablet (Lasix) 20 mg PO DAILY 12/04/21 04/19/24 Unknown History budesonide-formoterol HFA 160 1 puff inhalation BID 12/26/21 04/19/24 Unknown History mcg-4.5 mcg/actuation aerosol inhaler (Symbicort) hydrocodone 10 mg-acetaminophen 1 tab PO Q6H 12/26/21 04/19/24 Unknown History 325 mg tablet amiodarone 200 mg tablet 400 mg (2 x 200 mg) PO DAILY #180 05/21/23 04/19/24 Unknown Rx tabs dutasteride 0.5 mg capsule 0.5 mg PO DAILY 04/19/24 04/19/24 Unknown History levothyroxine 88 mcg tablet 88 mcg PO DAILY 04/19/24 04/19/24 Unknown History rosuvastatin 20 mg tablet 20 mg PO QPM 04/19/24 04/19/24 Unknown History tamsulosin 0.4 mg capsule 0.4 mg PO DAILY 04/19/24 04/19/24 Unknown History Allergies Allergy/AdvReac Type Severity Reaction Status Date / Time Sulfa (Sulfonamide Allergy Unknown Unknown Verified 04/19/24 02:05 Antibiotics) Current Medications Generic Name Dose Route Start Last Admin Trade Name Freq PRN Reason Stop Dose Admin Acetaminophen 650 mg 04/19/24 05:34 04/19/24 09:50 Acetaminophen 325 Mg Tablet PO 650 mg Q6H PRN Administration Mild/Mod Pain Or Temp >/= 101 Heparin Sodium/Sodium Chloride 25,000 unit in 500 mls @ 0 mls/hr 04/19/24 08:15 04/19/24 08:59 Heparin Drip IV 13.86 unit/kg/hr CONT EDGAR 22 mls/hr Administration Protocol Per Protocol Meropenem 500 mg 04/19/24 08:30 04/19/24 09:52 Meropenem 500 Mg Sdv IVP 500 mg Q8H EDGAR Administration Protocol Sodium Chloride 50 ml 04/19/24 05:25 04/19/24 08:03 Sodium Chloride 0.9% 100 Ml Bag IV 04/20/24 05:25 50 ml PRN PRN Administration Blood transfusion prime and flush Sucralfate 1 gm 04/19/24 11:00 04/19/24 12:00 Sucralfate 1 Gm/10 Ml Oral Liq Udc PO 1 gm Q6H EDGAR Administration PFSH Acute 2 PFSH: Medical History Aortic aneurysm Surgery History of nonmelanoma skin cancer Right inguinal hernia BPH (benign prostatic hyperplasia) Dyslipidemia HTN (hypertension), benign UTI (urinary tract infection) GERD (gastroesophageal reflux disease) History of skin cancer Anxiety ICD (implantable cardioverter-defibrillator) in place Cardiomyopathy CHF (congestive heart failure) Surgical History Status post right inguinal hernia repair (05/10/20) H/O excision of mass (05/10/20) S/P cardiac cath H/O colonoscopy yrs ago S/P internal cardiac defibrillator procedure S/P rotator cuff surgery Family History Mother , CA age 58 Cancer Father , CA age 82 Cancer Sister Cancer Denies family history of Anesthesia complication Bleeding disorder Social History Smoking and tobacco/nicotine status: former use of tobacco/nicotine Alcohol intake: never Substance/Drug Use: never Household members: spouse Marital status: Current occupational status: retired Vitals/I&O/Wt Last Vital Signs Temp 97.6 F 04/19/24 12:00 Pulse 67 04/19/24 14:00 Resp 15 04/19/24 12:00 BP 147/59 04/19/24 12:00 Pulse Ox 91 04/19/24 12:00 O2 Del Method Nasal Cannula 04/19/24 14:02 O2 Flow Rate 3 04/19/24 05:34 04/19/24 04/19/24 04/19/24 06:59 14:59 22:59 Intake Total 400 / 400 2981.37 / 2981.37 Balance 400 / 400 2981.37 / 2981.37 Weight last 48 hrs Weight 193 lb 9.6 oz Weight 175 lb Physical Exam 2 Narrative: General: No apparent distress, healthy appearing, well nourished HENMT: normoceophalic Muskuloskeletal: Full ROM Lymphatic: no lymphedema noted Respiratory: Normal respiratory effort, clear to auscultation bilaterally throughout all lung reno, no use of accessory muscles Cardio: No JVD, regular rate, regular rhythm, S1 S2 normal, no murmurs, peripheral pulses 2+ radial palpated bilaterally GI: Normal to inspection, nondistended Extremities: Full ROM, normal, normal capillary refill, no cyanosis or edema Neuro: Alert and oriented x4, no focal motor deficits Psych: Affect normal, denies suicidal ideation, mental status grossly normal Skin: right hip incision site well healed Data 04/20/24 03:10 04/20/24 03:10 Micro: Microbiology 04/19/24 07:33 Blood Culture - Preliminary Blood SPECIMEN COLLECTED 04/19/24 02:00 Blood Culture - Preliminary Blood SPECIMEN COLLECTED Other data: Venous US IMPRESSION: 1. Multifocal deep vein thromboses of the right extremity as noted above. 2. Possible partial superficial thrombophlebitis noted of the left saphenous vein. CT chest PE protocol IMPRESSION: 1. Bilateral multifocal pulmonary emboli centered about the segmental pulmonary arteries extending into the subsegmental arteries as detailed above. 2. Nonspecific lung findings which can be seen in acute on chronic bronchitis, small airway disease, air trapping, correlate clinically. A&P Assessment and plan (1) Bilateral pulmonary embolism: (2) Right leg DVT: (3) Acute anemia: (4) GI bleed: (5) NSTEMI (non-ST elevated myocardial infarction): (6) Failure of right total hip arthroplasty with dislocation of hip: (7) Acute hypoxic respiratory failure: Plan At this time patient has indications for an inferior vena cava filter due to acute venous thromboembolism with bilateral PE and the need for interruption of anticoagulation due to acute anemia of unknown source requiring blood transfusion. The patient has been educated on the risks and benefits by Dr. Harris and agrees to proceed. I did discuss with patient's over the phone, who is agreeable as well. Thank you, Dr. Christensen, for allowing us to care for this very pleasant 88 year old gentleman. Consult Attestations 2 Medical Necessity Statement: Deferred to primary care team. Coding Level of Care Code Acute Code for Chg Fwd Diagnoses Bilateral pulmonary embolism I26.99 Right leg DVT I82.401 Acute anemia D64.9 GI bleed K92.2 NSTEMI (non-ST elevated myocardial infarction) I21.4 Failure of right total hip arthroplasty with dislocation of hip T84.020A Acute hypoxic respiratory failure J96.01
[2024-04-19 16:26] LABS: Partial Thromboplastin Time 24.7 SECONDS (23.9-36.7)
[2024-04-19 18:12] LABS: Hematocrit 30.5 % (37-53)
[2024-04-19 21:29] LABS: Hematocrit 29.8 % (37-53)
[2024-04-19] MEDS: VANCOMYCIN ADD-Vantage 750 MG in 0.9% NaCl ADD-Vantage 250 ML 250 MG IV (22:09)
[2024-04-19] MEDS: atorvastatin 40 mg Tablet PO (22:11)
[2024-04-20] VITALS (94 sets, daily range): BP systolic 81–153; BP diastolic 43–80; PULSE 55–92; RESP 12–25; TEMP 37–37.5; O2SAT 77–100
[2024-04-20 01:20] LABS: Hematocrit 28.6 % (37-53)
[2024-04-20] MEDS: meropenem 500 mg SDV IVP ×4 (01:59→23:34)
[2024-04-20 03:50] LABS: Basophils % 0.2 %; Eosinophils # 0.2 10^3/uL (0.0-0.8); Eosinophils % 1.8 %; Hematocrit 27.2 % (37-53); Lymphocytes # 1.3 10^3/uL (0.8-4.8); Lymphocytes % 14.1 %; Mean Corpuscular HGB Conc 30.9 g/dL (30-55); Mean Corpuscular Volume 97.1 fl (82-101); Mean Platelet Volume 8.7 fL (7.4-10.4); Monocytes # 0.8 10^3/uL (0.2-0.9); Neutrophils # 6.74 10^3/uL (1.8-7.7); Neutrophils % 73.9 %; Nucleated Red Blood Cells % 0 %; Platelet Count 205 10^3/cmm (157-399); White Blood Count 9.11 10^3/uL (3.29-11.43)
[2024-04-20 03:58] LABS: INR 1.01 (0.8-1.2)
[2024-04-20 04:16] LABS: Alanine Aminotransferase 123 U/L (0-41); Albumin Level 2.5 g/dL (3.5-5.2); Alkaline Phosphatase 71 U/L (40-130); Anion Gap 14.3 (5-19); Aspartate Amino Transferase 172 U/L (0-40); Blood Urea Nitrogen 18 mg/dL (8-23); C Reactive Protein 210.2 mg/L (0.0-4.9); Calcium 8.7 mg/dL (8.5-10.5); Carbon Dioxide 24 mmol/L (22-29); Chloride 102 mmol/L (98-107); Globulin 2.9 g/dL (1.3-4.6); Glucose 109 mg/dL (65-115); Magnesium 1.8 mg/dL (1.7-2.3); Osmolality Calculated 284 mOsm/kg (285-295); Phosphorus 3.1 mg/dL (2.5-4.5); Potassium 4.3 mmol/L (3.5-5.1); Sodium 136 mmol/L (136-145); Total Bilirubin 0.3 mg/dL (0.15-1.2); Total Protein 5.4 g/dL (6.6-8.7)
[2024-04-20 04:21] LABS: NT Pro B Type Natriuretic Pept 3106 pg/mL (0-450); Procalcitonin 0.32 ng/mL (0-0.5)
[2024-04-20] MEDS: pantoprazole 40 mg SDV IVP ×2 (05:37→17:18)
[2024-04-20 05:54] LABS: Bacillus cereus group Not Detected (NOT DETECT); Bacillus subtillis group Not Detected (NOT DETECT); Corynebacterium Not Detected (NOT DETECT); Cutibacterium acnes (P.acnes) Not Detected (NOT DETECT); Enterococcus Not Detected (NOT DETECT); Enterococcus faecalis Not Detected (NOT DETECT); Enterococcus faecium Not Detected (NOT DETECT); Lactobacillus species Not Detected (NOT DETECT); Listeria Not Detected (NOT DETECT); Listeria monocytogenes Not Detected (NOT DETECT); Micrococcus Not Detected (NOT DETECT); Pan Candida Not Detected (NOT DETECT); Pan Gram-Negative Not Detected (NOT DETECT); Staphylococcus epidermidis Detected (NOT DETECT); Staphylococcus lugdunensis Not Detected (NOT DETECT); Staphylococcus species Detected (NOT DETECT); Streptococcus agalactiae Not Detected (NOT DETECT); Streptococcus anginosus group Not Detected (NOT DETECT); Streptococcus pneumoniae Not Detected (NOT DETECT); Streptococcus pyogenes Not Detected (NOT DETECT); Streptococcus species Not Detected (NOT DETECT); mecA Detected (NOT DETECT); mecC Not Detected (NOT DETECT)
[2024-04-20] MEDS: heparin drip 25,000 UNIT/500 ML PREMIX 25 UNIT IV (05:58)
--- NOTE | 2024-04-20 07:17 | PHA.VACGOAL ---
Vancomycin Goal - Goal Vancomycin Goal:: 15-20 mg/L Vancomycin Indication:: Pneumonia - Therapy Current therapy:: Meropenem Day of therpy:: Day []of [] . Actual body weight (kg): 87.543 kg - Data Labs: WBC 9.11 10^3/uL (3.29-11.43) 04/20/24 03:10 RBC 2.80 10^6/uL (3.85-5.65) L 04/20/24 03:10 Hgb 8.40 g/dL (11.27-16.99) L 04/20/24 03:10 Hct 27.2 % (37-53) L 04/20/24 03:10 MCV 97.1 fl (82-101) 04/20/24 03:10 MCH 30.0 pg (27-33) 04/20/24 03:10 MCHC 30.9 g/dL (30-55) 04/20/24 03:10 RDW 15.0 % (12.1-15.1) 04/20/24 03:10 Sodium 136 mmol/L (136-145) 04/20/24 03:10 Sodium Cancelled 04/20/24 03:10 Potassium 4.3 mmol/L (3.5-5.1) 04/20/24 03:10 Potassium Cancelled 04/20/24 03:10 Chloride 102 mmol/L (98-107) 04/20/24 03:10 Chloride Cancelled 04/20/24 03:10 Carbon Dioxide 24 mmol/L (22-29) 04/20/24 03:10 Carbon Dioxide Cancelled 04/20/24 03:10 Anion Gap 14.3 (5-19) 04/20/24 03:10 Anion Gap Cancelled 04/20/24 03:10 BUN 18 mg/dL (8-23) 04/20/24 03:10 BUN Cancelled 04/20/24 03:10 Creatinine 0.9 mg/dL (0.7-1.2) 04/20/24 03:10 Creatinine Cancelled 04/20/24 03:10 GFR Calculation Cancelled 04/20/24 03:10 GFR Calculation Not Reportable 04/20/24 03:10 Treatment plan:: new consult Regimen:: New start vancomycin for pneumonia. Started on maintenance dose of 750 mg q12h. Renal function stable, Scr 1.0 mg/dL. No growth on cultures. Vancomycin trough scheduled for 0800 04/21.
--- NOTE | 2024-04-20 07:39 | W.PM.OPSUD ---
Surgery/Procedure H&P Update DATE OF PROCEDURE: April 20, 2024 DATE H&P PERFORMED: 04/19/24 H&P UPDATE INFORMATION: I have reviewed H&P completed within last 30 days, I have examined patient prior to procedure and No changes to prior documentation PREOP DIAGNOSIS: Extensive DVT of right lower extremity/ bilateral PEs/ Blood loss anemia PRIMARY INDICATION FOR PROCEDURE: Extensive DVT of right lower extremity/ bilateral PEs/ Blood loss anemia PLANNED PROCEDURE: IVC fliter placement PATIENT REASSESSED PRIOR TO SEDATION, WITH NO CHANGE NOTED: Yes PHYSICAL EXAM: alert, oriented x 3, clear to auscultation bilaterally and regular rate & rhythm AIRWAY EVAL/ANESTHESIA PLAN: normal airway, ASA III, Local Anesthesia, Risks, benefits & alternatives of sedation and/or procedure discussed and Patient agrees to continue as planned ADDITIONAL INFORMATION: Moderate sedation
[2024-04-20 08:19] LABS: Partial Thromboplastin Time 73.4 SECONDS (23.9-36.7)
--- NOTE | 2024-04-20 08:29 | P.PCN_ITS ---
Procedure Note: Date of procedure: 04/20/24 Pre-procedure diagnosis: Extensive DVT/Bilateral PE/ Blood loss anemia Post-procedure diagnosis: other (S/p IVC filter placement) Procedure: IVC filter placement: We obtained access in left common femoral vein.? 6 Chinese pigtail catheter was used to perform IVC venogram.? Renal veins were identified.? We then proceeded with placement of Cook Celect IVC filter under fluoroscopic guidance below the renal veins. At this time, sheath was removed and pressure was held to attain hemostasis. Patient left the Brand Sales Consultant in stable condition. Performing Provider: Gibson Harris Estimated blood loss (mL): 5 Complications: None Condition: stable Disposition: ICU Coding Level of Care Code Acute Code for Chg Rodo
--- NOTE | 2024-04-20 08:32 | P.PN_ITS ---
Subjective 2 Subjective: Patient is doing well. No chest pain. Had successful IVC filter placement Vitals/I&O/Wt Last Vital Signs Temp 99.5 F 04/20/24 04:00 Pulse 66 04/20/24 06:00 Resp 20 H 04/20/24 06:00 BP 131/80 04/20/24 06:00 Pulse Ox 98 04/20/24 06:00 O2 Del Method Nasal Cannula 04/20/24 04:00 O2 Flow Rate 1.5 04/20/24 04:00 04/19/24 04/20/24 04/20/24 22:59 06:59 14:59 Intake Total 409 / 3390.37 1563.00 / 4953.37 Output Total 300 / 300 300 / 600 Balance 109 / 3090.37 1263.00 / 4353.37 Weight last 48 hrs Weight 193 lb Weight 193 lb 9.6 oz Weight 175 lb Physical Exam 2 Narrative: GENERAL: Patient is alert, awake and oriented x3. [] NECK: No jugular vein distension. [] HEENT: No cyanosis. No icterus. No pallor. [] HEART: Regular S1 and S2. No murmur, rub or gallop. [] LUNGS: Clear to auscultate bilaterally. [] CENTRAL NERVOUS SYSTEM: Grossly nonfocal. [] EXTREMITIES: Lower extremities with 1+ edema bilaterally. Data 04/21/24 04:28 04/21/24 04:28 Micro: Microbiology 04/19/24 07:33 Blood Culture - Preliminary Blood NEGATIVE TO DATE 04/19/24 02:00 Blood Culture - Preliminary Blood A&P Assessment and plan (1) Right leg DVT: (2) Bilateral pulmonary embolism: (3) Cardiomyopathy: Qualifiers: Cardiomyopathy type: other Qualified Code(s): I42.8 - Other cardiomyopathies (4) ICD (implantable cardioverter-defibrillator) in place: (5) CHF (congestive heart failure): Qualifiers: Heart failure type: systolic Heart failure chronicity: chronic Qualified Code(s): I50.22 - Chronic systolic (congestive) heart failure (6) GI bleed: (7) Staphylococcus epidermidis bacteremia: (8) Acute anemia: Plan Patient's hemoglobin continues to drop. Status post successful IVC filter placement. As no source of bleeding confirmed so far, can consider stopping anticoagulation. However if tolerates, can continue Antibiotic therapy per primary team Transfuse as needed. Thank you for involving us with care of this patient. We will continue to follow. Please call with questions. Attestations 2 Medical Necessity Statement*: Care expected to cross 2 midnights. Coding Level of Care Code Acute Code for Chg Fwd Diagnoses Right leg DVT I82.401 Bilateral pulmonary embolism I26.99 Other cardiomyopathy I42.8 Cardiomyopathy type: other ICD (implantable cardioverter-defibrillator) in place Z95.810 Chronic systolic congestive heart failure I50.22 Heart failure type: systolic Heart failure chronicity: chronic GI bleed K92.2 Staphylococcus epidermidis bacteremia R78.81; B95.7 Acute anemia D64.9
[2024-04-20] MEDS: dutasteride 0.5 mg Capsule PO (08:50)
[2024-04-20] MEDS: amiodarone 200 mg Tablet 400 MG PO (08:50)
[2024-04-20] MEDS: tamsulosin 0.4 mg Capsule PO (08:50)
[2024-04-20] MEDS: VANCOMYCIN ADD-Vantage 750 MG in 0.9% NaCl ADD-Vantage 250 ML 250 MG IV ×2 (08:50→20:34)
[2024-04-20] MEDS: ferrous sulfate EC 325 mg Tablet PO (08:50)
[2024-04-20] MEDS: FUROsemide 20 mg Tablet PO (08:50)
[2024-04-20] MEDS: levothyroxine 88 mcg Tablet PO (08:50)
[2024-04-20 09:23] LABS: Hematocrit 22.5 % (37-53)
[2024-04-20] MEDS: chlorhexidine gluconate 0.12% Btl 473 mL 30 ML MUCOUS MEM ×3 (12:24→20:32)
[2024-04-20] MEDS: sucralfate 1 gm/10 mL Oral Liq UDC PO ×3 (12:24→23:34)
[2024-04-20 13:07] LABS: Hematocrit 29.3 % (37-53)
[2024-04-20] MEDS: morphine 4 mg/mL SDV 1 mL 2 MG IVP ×2 (13:41→16:52)
--- NOTE | 2024-04-20 15:47 | P.PN_ITS ---
Subjective 2 Subjective: Patient was seen this morning, he is alert oriented x 3, following all commands head is IVC filter placed, hemoglobin dropped to 6.9, we discussed discontinuing anticoagulant therapy will watch his hemoglobin, transfuse 1 unit PRBC, he also has Staph epidermidis in his blood cultures 2 out of 4, discussed repeating blood cultures tomorrow, he did have his right hip replaced concerned that this could be a source, but it could also be contamination, will repeat blood cultures, monitor clinically, he voices understanding of all questions answered Vitals/I&O/Wt Last Vital Signs Temp 98.7 F 04/20/24 10:45 Pulse 92 04/20/24 12:30 Resp 23 H 04/20/24 12:30 BP 126/63 04/20/24 12:30 Pulse Ox 98 04/20/24 12:30 O2 Del Method Nasal Cannula 04/20/24 09:06 O2 Flow Rate 1 04/20/24 09:06 04/20/24 04/20/24 04/20/24 06:59 14:59 22:59 Intake Total 1563.00 / 4953.37 250 / 250 Output Total 300 / 600 Balance 1263.00 / 4353.37 250 / 250 Weight last 48 hrs Weight 87.543 kg Weight 87.815 kg Weight 79.379 kg Physical Exam 2 Const: COMMON NORMALS: no acute distress and patient oriented x3 Resp: COMMON NORMALS: normal respiratory effort, No retractions, No use of accessory muscles and clear to auscultation bilaterally AUSCULTATION: clear to auscultation bilaterally Cardio: COMMON NORMALS: regular rate, regular rhythm, S1 normal heart sound present and S2 normal heart sound present RATE: regular rate RHYTHM: r egular rhythm HEART SOUNDS: S1 normal heart sound present and S2 normal heart sound present GI: COMMON NORMALS: Normal to inspection, nondistended, normoactive bowel sounds present and non-tender Extremity: COMMON NORMALS: no pedal edema Neuro: COMMON NORMALS: patient oriented x3 Psych: COMMON NORMALS: mental status grossly normal Data 04/20/24 12:35 04/20/24 03:10 Micro: Microbiology 04/19/24 02:00 Blood Culture - Preliminary Blood Staphylococcus epidermidis 04/19/24 07:33 Blood Culture - Preliminary Blood NEGATIVE TO DATE A&P Assessment and plan (1) Bilateral pulmonary embolism: (2) Right leg DVT: (3) Acute anemia: (4) GI bleed: (5) NSTEMI (non-ST elevated myocardial infarction): (6) Failure of right total hip arthroplasty with dislocation of hip: (7) Pneumonia: (8) Acute hypoxic respiratory failure: (9) Staphylococcus epidermidis bacteremia: Plan Acute hypoxic respiratory failure ? Secondary to bilateral PEs ? Secondary to pneumonia ? CT/CT angio chest PE protcl [id number] IMPRESSION: 1. Bilateral multifocal pulmonary emboli centered about the segmental pulmonary arteries extending into the subsegmental arteries as detailed above. 2. Nonspecific lung findings which can be seen in acute on chronic bronchitis, small airway disease, air trapping, correlate clinically. # Complicated by acute anemia, concerns for slow GI bleed ? Plan ? Continue vancomycin -continue meropenem ? DuoNeb ? Follow blood cultures ? Monitor respiratory status closely ? Hemoglobin down to 6.9, heparin drip stopped, IVC filter placed -Hold off on anticoagulant therapy given persistent anemia Staphylococcus epidermidis bacteremia -2 out of 4 blood cultures positive -Did have right hip hardware in place -Imaging results as below -Question is this is a contamination versus real infection -For now continue vancomycin -For follow repeat blood cultures Right hip replacement -Status post nontraumatic hip displacement -Status post reduction in the emergency room -CT scan as below CT/CT hip RT w con [id number] IMPRESSION: 1. Greater trochanter and iliopsoas bursitis, given rim thickening and enhancement, difficult to exclude periprosthetic infection in the setting of total hip arthroplasty. Differentials include traumatic and hemorrhagic bursitis. 2. Posttraumatic change of the right hip subcutaneous fat with a small crescent of collection adjacent the superficial muscle fascia which could represent Larry Yosvany given the clinical situation. 3. Multiple ill-defined hyperattenuating foci adjacent the prosthesis which likely represents intramuscular and extra muscular hemorrhage. 4. Filling defect within the deep femoral system of the right extremity. 5. Prominent periarticular lucency about the acetabular cup which likely indicates loosening, however difficult to exclude other etiologies of periprosthetic loosening (i.e. infection, particle disease). -Surgical site on examination looks clean and dry, no active drainage or erythema or hematoma -Spoke to Dr. Cheng, [facility] about results, recommended medical management, low risk of prosthetic joint infection, recommend continued monitoring if any concerns can call them back -Staph epidermidis bacteremia as above, will monitor, continue vancomycin -Monitor inflammatory markers Right lower [place] DVT US/[place] [id number] IMPRESSION: 1. Multifocal deep vein thromboses of the right extremity as noted above. 2. Possible partial superficial thrombophlebitis noted of the left saphenous vein. - As above NSTEMI ? Likely secondary to bilateral PEs as above ? Continue heparin drip for now -Cardiac echo CONCLUSIONS Normal left ventricular size and systolic function, EF 55%.no regional wall motion abnormalities. Grade I/IV diastolic dysfunction (abnormal relaxation filling pattern), normal to mildly elevated filling pressures. Catheter/pacemaker wire in the right ventricular cavity. Mildly increased left atrial size. Mild mitral annular calcification. Mild aortic valve stenosis, mean gradient 14.8 mmHg, JUAN 1.6 cm squared. Mild tricuspid valve regurgitation. Estimated pulmonary artery peak systolic pressure 41 mmHg. There is no pericardial effusion. There are no intracardiac masses. Compared to the study from 12/21/2017, there is significant improvement in the LV ejection fraction from 40% to 55% Acute anemia -Status post 1 unit PRBC, now with persistent anemia ? With evidence of early deficiency anemia -Protonix, Carafate -Monitor hemoglobin -Monitor hemoglobin in 4 hours -Hemoglobin 6.9, heparin drip stopped -Transfuse if hemoglobin less than 8 Transaminitis, monitor Full code # SCDs for DVT prophylaxis, Plan for today IVC filter placement, continue IV antibiotics, PT OT, monitor hemoglobin Attestations 2 Medical Necessity Statement*: Patient requires hospitalization for bilateral pulm embolism right lower extremity DVT, acute anemia, Staph epidermidis bacteremia Diagnoses Bilateral pulmonary embolism I26.99 Right leg DVT I82.401 Acute anemia D64.9 GI bleed K92.2 NSTEMI (non-ST elevated myocardial infarction) I21.4 Failure of right total hip arthroplasty with dislocation of hip T84.020A Pneumonia J18.9 Acute hypoxic respiratory failure J96.01 Staphylococcus epidermidis bacteremia R78.81; B95.7
[2024-04-20] MEDS: sennosides-docusate Tablet 2 TAB PO (17:18)
[2024-04-20] MEDS: iron polysaccharide complex 150 mg Capsule PO (17:18)
[2024-04-20] MEDS: atorvastatin 40 mg Tablet PO (20:34)
[2024-04-21] VITALS (64 sets, daily range): BP systolic 67–121; BP diastolic 45–65; PULSE 56–96; RESP 12–24; TEMP 36.7–37.2; O2SAT 88–100; BMI 31.6
[2024-04-21] MEDS: morphine 4 mg/mL SDV 1 mL 2 MG IVP (02:41)
[2024-04-21] MEDS: sucralfate 1 gm/10 mL Oral Liq UDC PO ×3 (05:03→18:29)
[2024-04-21] MEDS: pantoprazole 40 mg SDV IVP ×2 (05:03→18:29)
[2024-04-21 05:24] LABS: Basophils % 0.2 %; Eosinophils # 0.2 10^3/uL (0.0-0.8); Eosinophils % 2.5 %; Hematocrit 29.7 % (37-53); Lymphocytes # 1.2 10^3/uL (0.8-4.8); Lymphocytes % 14.6 %; Mean Corpuscular HGB Conc 31.6 g/dL (30-55); Mean Corpuscular Hemoglobin 30.8 pg (27-33); Mean Corpuscular Volume 97.4 fl (82-101); Mean Platelet Volume 8.6 fL (7.4-10.4); Monocytes # 0.7 10^3/uL (0.2-0.9); Monocytes % 8.8 %; Neutrophils # 5.93 10^3/uL (1.8-7.7); Neutrophils % 72.8 %; Nucleated Red Blood Cells % 0 %; Platelet Count 212 10^3/cmm (157-399); Red Blood Count 3.05 10^6/uL (3.85-5.65); Red Cell Distribution Width 14.6 % (12.1-15.1); White Blood Count 8.15 10^3/uL (3.29-11.43)
[2024-04-21 05:47] LABS: Alanine Aminotransferase 113 U/L (0-41); Albumin Level 2.9 g/dL (3.5-5.2); Alkaline Phosphatase 86 U/L (40-130); Anion Gap 13.1 (5-19); Aspartate Amino Transferase 115 U/L (0-40); Blood Urea Nitrogen 18 mg/dL (8-23); C Reactive Protein 252.6 mg/L (0.0-4.9); Calcium 9.3 mg/dL (8.5-10.5); Carbon Dioxide 27 mmol/L (22-29); Chloride 102 mmol/L (98-107); Creatinine Clr Calc Pharmacy 58.8187; Globulin 3.2 g/dL (1.3-4.6); Glucose 123 mg/dL (65-115); Magnesium 1.8 mg/dL (1.7-2.3); NT Pro B Type Natriuretic Pept 2278 pg/mL (0-450); Osmolality Calculated 289 mOsm/kg (285-295); Phosphorus 2.9 mg/dL (2.5-4.5); Potassium 4.1 mmol/L (3.5-5.1); Procalcitonin 0.28 ng/mL (0-0.5); Sodium 138 mmol/L (136-145); Total Bilirubin 0.4 mg/dL (0.15-1.2); Total Protein 6.1 g/dL (6.6-8.7)
[2024-04-21 05:57] LABS: Erythrocyte Sedimentation Rate 32 mm/hr (0-10)
--- NOTE | 2024-04-21 06:37 | XACV_ITS ---
Wt: 88 kg BSA: 2.05 m2 Gender: Male : 1935 Exam Type: Invasive Peripheral Vascular Exam Priority: Routine Abdominal Interventional Findings INDICATION: Extensive DVT of right lower extremity/ bilateral PEs/ Blood loss anemia. IVC filter placement: We obtained access in left common femoral vein. 6 Georgian pigtail catheter was used to perform IVC venogram. Renal veins were identified. We then proceeded with placement of Cook Celect IVC filter under fluoroscopic guidance below the renal veins. At this time, sheath was removed and pressure was held to attain hemostasis. Patient left the Medical Supervisor in stable condition. Conclusions S/p successful IVC filter placement. Recommendations Transfer back to ICU. If in future, able to tolerate anticoagulation, will consider retreival. I, the attending physician, have reviewed and verified all procedure medications. Yes, all medications given per verbal order Report Signatures Finalized by Gibson Harris MD on 04/25/2024 11:02 AM
--- NOTE | 2024-04-21 08:19 | P.PN_ITS ---
Subjective 2 Subjective: Patient is doing well. No chest pain. Femoral venous access site is normal. Vitals/I&O/Wt Last Vital Signs Temp 98.0 F 04/21/24 04:30 Pulse 63 04/21/24 06:00 Resp 17 04/21/24 04:30 BP 96/45 04/21/24 04:30 Pulse Ox 91 04/21/24 04:30 O2 Del Method Room Air 04/21/24 04:30 O2 Flow Rate 2 04/20/24 21:15 04/20/24 04/21/24 04/21/24 22:59 06:59 14:59 Intake Total 500 / 750 250 / 1000 Output Total 900 / 900 650 / 1550 Balance -400 / -150 -400 / -550 Weight last 48 hrs Weight 196 lb Weight 193 lb Weight 193 lb 9.6 oz Physical Exam 2 Narrative: GENERAL: Patient is alert, awake and oriented x3. [] NECK: No jugular vein distension. [] HEENT: No cyanosis. No icterus. No pallor. [] HEART: Regular S1 and S2. No murmur, rub or gallop. [] LUNGS: Clear to auscultate bilaterally. [] CENTRAL NERVOUS SYSTEM: Grossly nonfocal. [] EXTREMITIES: Lower extremities with 1+ edema bilaterally. 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 Off of anticoagulation, no more drop in hemoglobin. Access site is normal. Thank you for involving us with care of this patient. Please call with questions. Attestations 2 Medical Necessity Statement*: Care expected to cross 2 midnights. Coding Level of Care Code Acute Code for Chg Fwd Diagnoses Right leg DVT I82.401 Bilateral pulmonary embolism I26.99 Other cardiomyopathy I42.8 Cardiomyopathy type: other ICD (implantable cardioverter-defibrillator) in place Z95.810 Chronic systolic congestive heart failure I50.22 Heart failure type: systolic Heart failure chronicity: chronic GI bleed K92.2 Staphylococcus epidermidis bacteremia R78.81; B95.7 Acute anemia D64.9
[2024-04-21] MEDS: ferrous sulfate EC 325 mg Tablet PO (08:20)
[2024-04-21] MEDS: iron polysaccharide complex 150 mg Capsule PO ×2 (08:23→18:29)
[2024-04-21] MEDS: sennosides-docusate Tablet 2 TAB PO (08:24)
[2024-04-21] MEDS: tamsulosin 0.4 mg Capsule PO (08:24)
[2024-04-21] MEDS: amiodarone 200 mg Tablet 400 MG PO (08:28)
[2024-04-21] MEDS: dutasteride 0.5 mg Capsule PO (08:28)
[2024-04-21] MEDS: VANCOMYCIN ADD-Vantage 750 MG in 0.9% NaCl ADD-Vantage 250 ML IV (08:29)
[2024-04-21] MEDS: meropenem 500 mg SDV IVP ×3 (08:29→23:29)
[2024-04-21] MEDS: FUROsemide 20 mg Tablet PO (08:29)
[2024-04-21] MEDS: levothyroxine 88 mcg Tablet PO (08:29)
[2024-04-21] MEDS: chlorhexidine gluconate 0.12% Btl 473 mL 30 ML MUCOUS MEM ×3 (08:30→20:13)
[2024-04-21 08:32] LABS: Vancomycin Trough 13.8 ug/mL (10-15)
--- NOTE | 2024-04-21 12:25 | PM.PN ---
Subjective Subjective: - Patient was examined this morning, he is alert oriented x 3, following all commands, no acute events overnight, denies any bloody or black stools, -I did detailed discussion with James, unfortunately his CRP has gone up to 252.6, his CRP is up to 31, 2 out of 4 blood cultures are positive for Staph epidermidis -Given his CT scan findings when he was admitted on the , in my discussions with orthopedics at [facility] I am worried that he has a prosthetic joint infection given that he is 3 weeks out of surgery, he had a spontaneous dislocation of the right hip, his elevated inflammatory markers positive blood cultures, -When I spoke to orthopedics in [facility] on Friday they recommended continued inpatient monitoring, and if there is any concerns for prostatic joint infection, surgical site infection, they are more than happy to take the patient back ? Given everything that I see right now, I am highly suspicious that he has a prosthetic joint infection, surgical site infection he is going to need an IR guided drainage of that right hip even orthopedics to drain the fluid in the right hip, he will need cultures, -Do not have IR available here at [facility] due to the holiday -Discussed options that are available, agreeable to go to [facility], but will speak to his physicians at [facility] -I also spoke to our orthopedic physician here Dr. Blake, I also spoke to Dr. Blake on admission, discussed the case in detail again with Dr. Stapleton, he would recommend for patient to be transferred to where his hip surgery was done -Spoke to [facility] transfer line ? Spoke to [facility] in [place], spoke to the orthopedic physician, he recommended IR guided drainage of right hip, recommended for me to speak to their medicine service ? Spoke to [facility] [place], hospital service, they accepted transfer, spoke to them about the case in detail, patient's spontaneous right hip dislocation, with subsequent reduction in the ER, with findings of bilateral PEs, right lower extremity DVT and acute anemia requiring transfusion of blood IVC filter placement patient is fairly stable from that, can certainly consider anticoagulant therapy later on based on clinical progress, now discussed issue on admission with CT scan findings of the right hip, low-grade fever, elevated CRP. Now with persistent elevation of CRP, positive blood cultures, spontaneous right hip location, recent history of hip surgery/replacement, recommend IR guided drainage of right hip to exclude right hip as a source of infection unfortunately do not have IR services available here at [facility], and our orthopedic service recommends patient to be at the center where his right hip was replaced just 3 weeks ago, they have excepted the transfer -I had a family meeting with patient and his and his daughter ? I again had a detailed discussion with him about patient's initial hospitalization for spontaneous right hip dislocation, which is suspicious and in itself as he reported no trauma no injuries potentially might of overdone it with physical therapy, 3 weeks from surgery, with his low-grade fever, his CRP elevation 120 when he came in his CT scan finding of fluid collection loosening of hardware. My initial discussion with orthopedic service on Friday about these findings, they had recommended medical management for now however they were certainly suspicious, but they recommended to continue to monitor James, to see how he clinically progressed, subsequently he required a unit of blood for his acute anemia, he failed a trial of a anticoagulant therapy as his hemoglobin dropped, required IVC filter placement, currently normotensive on room air he has done physical therapy yesterday overall in my opinion he has clinically progressed in the positive direction. However over the last 48 hours his CRP has doubled to 252.6, although he has not had any fevers the surgical site looks on examination looks clean and dry, 2 of his blood cultures are positive for Staph epidermidis. Given all these findings, it is especially with his spontaneous right hip dislocation, fluid collection in the right hip, and loosening of hardware this highly suspicious for surgical site infection/prosthetic joint infection. In addition on admission I have placed him on vancomycin and meropenem for concerns for possible pneumonia although I think is fairly unlikely given that he is on room air. Would recommend IR guided drainage, the services are not available at here at [facility] given it is a holiday, spoke to our orthopedic service, they recommend patient to be transferred to the facility that replaced his right hip 3 weeks ago, spoke to orthopedic service and hospitalist service at [facility], they have accepted patient in transfer and will be transferred up to [facility] hopefully today. Discussed with family that there is certainly a possibility that blood cultures positive could be an contamination however given that his CRP continues to elevate, his CT scan findings, his initial presentation of spontaneous right hip dislocation is very suspicious to me that this indeed is a right hip prosthetic joint infection/surgical site infection ?family wanted to know what the next process forward was discussed with him and will be IR guided drainage of the right hip culture his hip joint continue antibiotics and give him time we will what the parameters of the IR fluid drainage show, we will let the fluid grow and microbiology for a few days to see if anything grows # Discussed with him that Staph epidermidis bacteria is a bacteria that grows in the skin, normally if it is found in blood cultures a lot of the times it is a contamination but in individuals that have had artificial joints place and if it is placed quite recently it is very suspicious that it might be a surgical site infection. As Staph epidermidis is a very severe surgical site infection/prosthetic joint infection that has to be taken very seriously. ? If indeed it turns out that he has prosthetic joint infection surgical site infection, options that they will discuss will be removal of the hip joint, antibiotic spacer, external fixation IV antibiotics for 6 weeks. They might elect to repeat blood cultures, repeat hip CT to ensure that the right hip is cleared of infection. Once he has completed this they would likely then put in a new prostatic hip joint. Other options if he does not want the hip to be replaced, is surgical drainage followed by the antibiotics for 6 weeks, then likely oral antibiotics for the rest of his life. Indeed his family member at bedside his son-in-law had a left shoulder replacement that became infected and now he is on rifampin. ? Discussed risk and benefits of transfer, they voiced understanding, all questions answered, agreed to proceed to transfer to [facility] Vitals/I&O/Wt Last Vital Signs Temp 98.0 F 04/21/24 04:30 Pulse 70 04/21/24 09:20 Resp 19 H 04/21/24 09:00 BP 118/64 04/21/24 09:00 Pulse Ox 95 04/21/24 09:20 O2 Del Method Room Air 04/21/24 09:20 O2 Flow Rate 2 04/20/24 21:15 04/20/24 04/21/24 04/21/24 22:59 06:59 14:59 Intake Total 500 / 750 250 / 1000 Output Total 900 / 900 650 / 1550 Balance -400 / -150 -400 / -550 Weight last 48 hrs Weight 88.904 kg Weight 87.543 kg Weight 87.815 kg Physical Exam Const: COMMON NORMALS: no acute distress and patient oriented x3 Resp: COMMON NORMALS: normal respiratory effort, No retractions, No use of accessory muscles and clear to auscultation bilaterally AUSCULTATION: clear to auscultation bilaterally Cardio: COMMON NORMALS: regular rate, regular rhythm, S1 normal heart sound present and S2 normal heart sound present RATE: regular rate RHYTHM: regular rhythm HEART SOUNDS: S1 normal heart sound present and S2 normal heart sound present GI: COMMON NORMALS: Normal to inspection, nondistended, normoactive bowel sounds present and non-tender Back/Pelvis: OTHER: Right hip, surgical site, is clean and dry Extremity: COMMON NORMALS: no calf tenderness and no pedal edema Neuro: COMMON NORMALS: patient oriented x3 Psych: COMMON NORMALS: mental status grossly normal Data 04/21/24 04:28 04/21/24 04:28 Micro: Microbiology 04/19/24 02:00 Blood Culture - Preliminary Blood Staphylococcus epidermidis 04/21/24 04:32 Blood Culture - Preliminary Blood SPECIMEN COLLECTED 04/21/24 04:28 Blood Culture - Preliminary Blood SPECIMEN COLLECTED 04/19/24 07:33 Blood Culture - Preliminary Blood NEGATIVE TO DATE A&P Assessment and plan (1) Bilateral pulmonary embolism: (2) Right leg DVT: (3) Acute anemia: (4) GI bleed: (5) NSTEMI (non-ST elevated myocardial infarction): (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 Secondary to bilateral PEs ? Secondary to pneumonia ? CT/CT angio chest PE protcl [id number] IMPRESSION: 1. Bilateral multifocal pulmonary emboli centered about the segmental pulmonary arteries extending into the subsegmental arteries as detailed above. 2. Nonspecific lung findings which can be seen in acute on chronic bronchitis, small airway disease, air trapping, correlate clinically. # Complicated by acute anemia, concerns for slow GI bleed ? Plan ? Continue vancomycin -continue meropenem ? DuoNeb ? Follow blood cultures ? Monitor respiratory status closely ? Hemoglobin down to 6.9, heparin drip stopped, IVC filter placed, hemoglobin up to 9.4 -Hold off on anticoagulant therapy given persistent anemia Staphylococcus epidermidis bacteremia ? Highly suspicious for prosthetic joint infection, surgical site infection patient 3 weeks out of surgery -2 out of 4 blood cultures positive -Did have right hip hardware in place -Imaging results as below -CRP up to 256, ? With spontaneous right hip dislocation, evidence of periprosthetic loosening ? Makes me very highly concerned for prosthetic joint infection, surgical site infection -For now continue vancomycin -For follow repeat blood cultures # Transferred to [facility] # Will require IR guided drainage of right hip Right hip replacement -Status post nontraumatic hip displacement -Status post reduction in the emergency room -CT scan as below CT/CT hip RT w con [id number] IMPRESSION: 1. Greater trochanter and iliopsoas bursitis, given rim thickening and enhancement, difficult to exclude periprosthetic infection in the setting of total hip arthroplasty. Differentials include traumatic and hemorrhagic bursitis. 2. Posttraumatic change of the right hip subcutaneous fat with a small crescent of collection adjacent the superficial muscle fascia which could represent Larry Yosvany given the clinical situation. 3. Multiple ill-defined hyperattenuating foci adjacent the prosthesis which likely represents intramuscular and extra muscular hemorrhage. 4. Filling defect within the deep femoral system of the right extremity. 5. Prominent periarticular lucency about the acetabular cup which likely indicates loosening, however difficult to exclude other etiologies of periprosthetic loosening (i.e. infection, particle disease). -Surgical site on examination looks clean and dry, no active drainage or erythema or hematoma -Spoke to Dr. Cheng, [facility] orthopedics about results, recommended medical management, low risk of prosthetic joint infection, recommend continued monitoring if any concerns can call them back -Staph epidermidis bacteremia as above, will monitor, continue vancomycin -Monitor inflammatory markers ? Repeat blood cultures pending # IR guided drainage of right hip Right lower extremity D[place] US/[place] [id number] IMPRESSION: 1. Multifocal deep vein thromboses of the right extremity as noted above. 2. Possible partial superficial thrombophlebitis noted of the left saphenous vein. - As above NSTEMI ? Likely secondary to bilateral PEs as above ? Continue heparin drip for now -Cardiac echo CONCLUSIONS Normal left ventricular size and systolic function, EF 55%.no regional wall motion abnormalities. Grade I/IV diastolic dysfunction (abnormal relaxation filling pattern), normal to mildly elevated filling pressures. Catheter/pacemaker wire in the right ventricular cavity. Mildly increased left atrial size. Mild mitral annular calcification. Mild aortic valve stenosis, mean gradient 14.8 mmHg, JUAN 1.6 cm squared. Mild tricuspid valve regurgitation. Estimated pulmonary artery peak systolic pressure 41 mmHg. There is no pericardial effusion. There are no intracardiac masses. Compared to the study from 12/21/2017, there is significant improvement in the LV ejection fraction from 40% to 55% Acute anemia -Status post 1 unit PRBC, now with persistent anemia ? With evidence of early deficiency anemia -Protonix, Carafate -Monitor hemoglobin -Monitor hemoglobin in 4 hours -Hemoglobin 6.9, heparin drip stopped ? Hemoglobin up to 9.4 -Transfuse if hemoglobin less than 8 Transaminitis, monitor Full code # SCDs for DVT prophylaxis, Plan for today continue IV antibiotics, transfer to [facility] for concerns for right hip prosthetic joint infection, surgical site infection Attestations Medical Necessity Statement*: Patient requires transfer to [facility] for concerns for right hip prosthetic joint infection, surgical site infection Diagnoses Bilateral pulmonary embolism I26.99 Right leg DVT I82.401 Acute anemia D64.9 GI bleed K92.2 NSTEMI (non-ST elevated myocardial infarction) I21.4 Failure of right total hip arthroplasty with dislocation of hip T84.020A Pneumonia J18.9 Acute hypoxic respiratory failure J96.01 Staphylococcus epidermidis bacteremia R78.81; B95.7
--- NOTE | 2024-04-21 12:29 | PC.SOCIAL ---
IMM updated IMM dated and initialed, copy given to patient and copy placed in chart.
--- NOTE | 2024-04-21 12:36 | PC.NURSE ---
report called to Viviana infante
--- NOTE | 2024-04-21 12:43 | P.TS_ITS ---
Transfer Summary Providers Date of Admission: 04/19/24 11:14 Date of Discharge/Transfer: 04/21/24 Attending Provider at Admission: Antonio Christensen MD Attending Provider at Transfer: Antonio Christensen MD Primary Care Provider: Supriya Arango Transfer Plans: Anticipated date of transfer: 04/21/24 . Diagnoses at Discharge Discharge Diagnosis (1) Bilateral pulmonary embolism: Status: Acute (2) Right leg DVT: Status: Acute (3) Acute anemia: Status: Acute (4) GI bleed: Status: Acute (5) NSTEMI (non-ST elevated myocardial infarction): Status: Acute (6) Failure of right total hip arthroplasty with dislocation of hip: Status: Acute (7) Pneumonia: Status: Inactive (8) Acute hypoxic respiratory failure: Status: Acute (9) Staphylococcus epidermidis bacteremia: Status: Acute Reason for Visit Reason for Visit WEAKNESS Hospital Course Hospital Course James Villasenor is a 88 year old male With a past medical history of pacemaker placement, nonischemic cardiomyopathy, hypertension, GERD, dyslipidemia who presents to [facility] due to right sided hip pain. Patient had a fall and subsequent right hip replacement at [facility] in [place]. He was then discharged to group home facility, he has been doing well at the group home facility he does feel that he has been overdoing it but denies any traumas, no falls, no injuries. He tells me that since Friday he has been less mobile, having severe right hip pain, he also had a fever, he denies any shortness of breath but is hypoxic, he he required oxygen after his surgery, no dysuria, no flank pain, no cough, he was also found to have an acute anemia, denies any bloody or black stools, does report fatigue and tiredness Patient was admitted to [facility] for acute hypoxic respiratory failure, secondary to bilateral PEs, possible pneumonia, received anticoagulant therapy, broad-spectrum antibiotic therapy, did have acute anemia during hospitalization, hemoglobin dropped requiring placement IVC filter placement. On transfer patient is on room air, IVC filter in place, in terms of anticoagulant therapy I have held off on further anticoagulant therapy given acute anemia. Patient has evidence of iron deficiency anemia he will likely require a EGD at some point. And potentially a trial of anticoagulant therapy in the near future, if his hemoglobin stable and EGD is unremarkable. Right lower extremity DVT IVC filter placed as above Acute anemia status post 1 unit PRBC, concerns for iron deficiency anemia, monitor on Protonix, Carafate, hemoglobin 9.4 hemodynamically stable no bloody or black stools, Hemoccult stool pending on transfer Right hip replacement status post nontraumatic hip displacement status post reduction of the emergency room Patient's hospitalization was complicated by Staph epidermidis bacteremia, with elevated CRP, CT scan findings Greater trochanter and iliopsoas bursitis, given rim thickening and enhancement, difficult to exclude periprosthetic infection in the setting of total hip arthroplasty. And prominent periarticular lucency about the ac etabular cup which likely indicates loosening. Concerns for prosthetic joint infection, surgical site infection as patient is 3 weeks out of surgery and has had spontaneous hip displacement, with elevated CRP continue to elevate to 260, now with Staph epidermidis bacteremia. Patient was transferred to [facility] in [place] where his surgery was completed for IR guided drainage of right hip, orthopedic evaluation by his team who took care of his right hip 3 weeks ago, concerns for prosthetic joint infection/surgical's infection. Patient has been on meropenem and vancomycin since hospital admission, I will continue these antibiotics on transfer Physical Exam Const: COMMON NORMALS: no acute distress and patient oriented x3 Resp: COMMON NORMALS: normal respiratory effort, No retractions, No use of accessory muscles and clear to auscultation bilaterally AUSCULTATION: clear to auscultation bilaterally Cardio: COMMON NORMALS: regular rate, regular rhythm, S1 normal heart sound present and S2 normal heart sound present RATE: regular rate RHYTHM: regular rhythm HEART SOUNDS: S1 normal heart sound present and S2 normal heart sound present GI: COMMON NORMALS: Normal to inspection, nondistended, normoactive bowel sounds present and non-tender Extremity: COMMON NORMALS: no pedal edema Neuro: COMMON NORMALS: patient oriented x3 Psych: COMMON NORMALS: mental status grossly normal TS Data Studies Completed and Pending Pending at discharge Category Date Time 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 Routine Exams 04/21/24 06:37 Ordered Blood Culture AM LABS Lab 04/21/24 04:32 Results Blood Culture Stat Lab 04/19/24 07:33 Results C Reactive Protein AM LABS Lab 04/22/24 04:00 Ordered Complete Blood Count w/Auto AM LABS Lab 04/22/24 04:00 Ordered Complete Blood Count w/Auto AM LABS Lab 04/22/24 04:00 Ordered Complete Blood Count w/Auto AM LABS Lab 04/23/24 04:00 Ordered Comprehensive Metabolic Panel AM LABS Lab 04/22/24 04:00 Ordered Leukocyte Reduced RBC Stat Lab 04/19/24 05:35 Results Magnesium AM LABS Lab 04/22/24 04:00 Ordered NT Pro B Type Natriuretic Pept QAM Lab 04/22/24 06:00 Ordered Phosphorus AM LABS Lab 04/22/24 04:00 Ordered Procalcitonin AM LABS Lab 04/22/24 04:00 Ordered Prothrombin Time INR AM LABS Lab 04/22/24 04:00 Ordered Type and Screen Stat Lab 04/19/24 05:35 Results Completed Studies During Hospitalization Category Date Time Status CT angio chest PE protcl [id number] Stat Cat Scan 04/19/24 05:[address] hip RT w con [id number] Stat Cat Scan 04/19/24 05:12 Completed XR chest 1V portable [id number] Stat Exams 04/19/24 02:23 Completed XR hip RT 1V wo/w pel [id number] Stat Exams 04/19/24 04:32 Completed XR hip RT 2-3V wo/w pel* [id number] Stat Exams 04/19/24 02:23 [place] [id number] Stat Ultrasound 04/19/24 05:45 Completed CV. echo complete* [id number] Stat Ultrasound 04/19/24 07:15 Completed Laboratory Last Values WBC 8.15 10^3/uL (3.29-11.43) 04/21/24 04:28 RBC 3.05 10^6/uL (3.85-5.65) L 04/21/24 04:28 Hgb 9.40 g/dL (11.27-16.99) L 04/21/24 04:28 Hct 29.7 % (37-53) L 04/21/24 04:28 MCV 97.4 fl (82-101) 04/21/24 04:28 MCH 30.8 pg (27-33) 04/21/24 04:28 MCHC 31.6 g/dL (30-55) 04/21/24 04:28 RDW 14.6 % (12.1-15.1) 04/21/24 04:28 Plt Count 212 10^3/cmm (157-399) 04/21/24 04:28 MPV 8.6 fL (7.4-10.4) 04/21/24 04:28 Neut % (Auto) 72.8 % 04/21/24 04:28 Lymph % (Auto) 14.6 % 04/21/24 04:28 [place] % (Auto) 8.8 % 04/21/24 04:28 Eos % (Auto) 2.5 % 04/21/24 04:28 Baso % (Auto) 0.2 % 04/21/24 04:28 Neut # (Auto) 5.93 10^3/uL (1.8-7.7) 04/21/24 04:28 Lymph # (Auto) 1.2 10^3/uL (0.8-4.8) 04/21/24 04:28 [place] # (Auto) 0.7 10^3/uL (0.2-0.9) 04/21/24 04:28 Eos # (Auto) 0.2 10^3/uL (0.0-0.8) 04/21/24 04:28 Baso # (Auto) 0.0 10^3/uL (0.0-0.1) 04/21/24 04:28 Nucleated RBC % (auto) 0 % 04/21/24 04:28 Nucleated RBCs # 0.0 /100WBC 04/21/24 04:28 ESR 32 mm/hr (0-10) H 04/21/24 04:28 PT 13.50 SECONDS (12.1-14.9) 04/21/24 04:28 INR 1.00 (0.8-1.2) 04/21/24 04:28 APTT 73.4 SECONDS (23.9-36.7) H 04/20/24 07:28 D-Dimer 16.93 ug/mLFEU (0-0.59) H 04/19/24 02:00 Sodium 138 mmol/L (136-145) 04/21/24 04:28 Potassium 4.1 mmol/L (3.5-5.1) 04/21/24 04:28 Chloride 102 mmol/L (98-107) 04/21/24 04:28 Carbon Dioxide 27 mmol/L (22-29) 04/21/24 04:28 Anion Gap 13.1 (5-19) 04/21/24 04:28 BUN 18 mg/dL (8-23) 04/21/24 04:28 Creatinine 0.9 mg/dL (0.7-1.2) 04/21/24 04:28 GFR Calculation Not Reportable 04/21/24 04:28 Glucose 123 mg/dL (65-115) H 04/21/24 04:28 Estimat Average Glucose 114 04/19/24 02:00 Hemoglobin A1c 5.6 % (4.0-6.0) 04/19/24 02:00 Calculated Osmolality 289 mOsm/kg (285-295) 04/21/24 04:28 Lactic Acid 1.2 mmol/L (0.5-2.2) 04/19/24 02:00 Calcium 9.3 mg/dL (8.5-10.5) 04/21/24 04:28 Phosphorus 2.9 mg/dL (2.5-4.5) 04/21/24 04:28 Magnesium 1.8 mg/dL (1.7-2.3) 04/21/24 04:28 Iron 10 ug/dL (59-158) L 04/19/24 02:00 TIBC 159 mcg/dl 04/19/24 02:00 % Saturation 6.2 % (20-50) L 04/19/24 02:00 Unsat Iron Binding 149 ug/dL (112-347) 04/19/24 02:00 Ferritin 579 ng/mL (30-400) H 04/19/24 02:00 Total Bilirubin 0.4 mg/dL (0.15-1.2) 04/21/24 04:28 AST 115 U/L (0-40) H 04/21/24 04:28 ALT 113 U/L (0-41) H 04/21/24 04:28 Alkaline Phosphatase 86 U/L (40-130) 04/21/24 04:28 Troponin T Baseline 117 ng/L (0-15) H* 04/19/24 07:38 Troponin T 120 Minute 110.8 ng/L (0-15) H 04/19/24 09:36 Delta Troponin T -6.2 ABS# (0-10) L 04/19/24 09:36 Troponin T Hi Sens 6Hr 114.2 ng/L (0-15) H 04/19/24 13:42 Troponin T Hi Sens 6Hr Delta -2.8 ng/L (0-12) L 04/19/24 13:42 C-Reactive Protein 252.6 mg/L (0.0-4.9) H 04/21/24 04:28 NT-Pro-B Natriuret Pep 2278 pg/mL (0-450) H 04/21/24 04:28 Total Protein 6.1 g/dL (6.6-8.7) L 04/21/24 04:28 Albumin 2.9 g/dL (3.5-5.2) L 04/21/24 04:28 Globulin 3.2 g/dL (1.3-4.6) 04/21/24 04:28 Triglycerides 124 mg/dL (0-150) 04/19/24 02:00 Cholesterol 80 mg/dL (0-200) 04/19/24 02:00 LDL Cholesterol, Calc 29 mg/dL (50-129) L 04/19/24 02:00 HDL Cholesterol 26 mg/dL (60-100) L 04/19/24 02:00 LDL/HDL Ratio 1.12 RATIO (0.00-3.22) 04/19/24 02:00 Cholesterol/HDL Ratio 3.08 mg/dL (1.0-5.00) 04/19/24 02:00 Procalcitonin 0.28 ng/mL (0-0.5) 04/21/24 04:28 TSH 5.58 uIU/mL (0.27-4.20) H 04/19/24 02:00 Urine Color Yellow (Yellow) 04/19/24 02:55 Urine Appearance Clear (CLEAR) 04/19/24 02:55 Urine pH 5.5 (5-7) 04/19/24 02:55 Ur Specific [place] 1.019 (1.005-1.030) 04/19/24 02:55 Urine Protein Trace (Negative) A 04/19/24 02:55 Urine Glucose (UA) Negative (Normal) 04/19/24 02:55 Urine Ketones Negative (Negative) 04/19/24 02:55 Urine Blood Negative (Negative) 04/19/24 02:55 Urine Nitrate Negative (Negative) 04/19/24 02:55 Urine Bilirubin Negative (Negative) 04/19/24 02:55 Urine Urobilinogen 1.0 mg/dL (Negative) 04/19/24 02:55 Ur Leukocyte Esterase Negative (Negative) 04/19/24 02:55 Urine RBC 0-2 /hpf (0-2) 04/19/24 02:55 Urine WBC 0-5 /hpf (0-5) 04/19/24 02:55 Ur Squamous Epith Cells 0-5 /hpf (0-5) 04/19/24 02:55 Amorphous Sediment Not Reportable 04/19/24 02:55 Urine Bacteria None seen /hpf (NONE) 04/19/24 02:55 Hyaline Casts 3.71 /lpf 04/19/24 02:55 Vancomycin Trough 13.8 ug/mL (10-15) 04/21/24 08:02 Coronavirus (PCR) Negative (Negative) 04/19/24 02:55 Influenza A (PCR) Negative (Negative) 04/19/24 02:55 Influenza Type B (PCR) Negative (Negative) 04/19/24 02:55 RSV (PCR) Negative (Negative) 04/19/24 02:55 Blood Type O Positive 04/19/24 05:35 Rho(D) Type Rh positive 04/19/24 05:35 Antibody Screen Negative 04/19/24 05:35 Crossmatch See Detail 04/19/24 05:35 Radiology Impressions Chest X-Ray 04/19/24 02:23 IMPRESSION: Right infrahilar consolidation that may represent atelectasis or in the appropriate clinical setting, pneumonia. Hip/Pelvis X-Ray 04/19/24 02:23 IMPRESSION: 1. Status post right hemiarthroplasty with superolateral dislocation of the femoral head. 2. No acute fracture. ADDENDUM: 04/19/24 0610 ADDENDUM: The correct statement is as follows: Status post right hemiarthroplasty with superolateral dislocation of the acetabular component and femoral head. Hip X-Ray 04/19/24 04:32 IMPRESSION: Successful reduction of the acetabular component femoral head with some residual subluxation that may be due to hemarthrosis. The cephalic component does not appear to be adherent to the acetabulum. Hip CT 04/19/24 05:12 IMPRESSION: 1. Greater trochanter and iliopsoas bursitis, given rim thickening and enhancement, difficult to exclude periprosthetic infection in the setting of total hip arthroplasty. Differentials include traumatic and hemorrhagic bursitis. 2. Posttraumatic change of the right hip subcutaneous fat with a small crescent of collection adjacent the superficial muscle fascia which could represent Larry Yosvany given the clinical situation. 3. Multiple ill-defined hyperattenuating foci adjacent the prosthesis which likely represents intramuscular and extra muscular hemorrhage. 4. Filling defect within the deep femoral system of the right extremity. 5. Prominent periarticular lucency about the acetabular cup which likely indicates loosening, however difficult to exclude other etiologies of periprosthetic loosening (i.e. infection, particle disease). Chest CTA 04/19/24 05:13 IMPRESSION: 1. Bilateral multifocal pulmonary emboli centered about the segmental pulmonary arteries extending into the subsegmental arteries as detailed above. 2. Nonspecific lung findings which can be seen in acute on chronic bronchitis, small airway disease, air trapping, correlate clinically. ADDENDUM: 04/19/24 4330 ADDENDUM: The above findings and impression were discussed with the ordering provider on 04/19/2024 at 7:15 a.m. Venous Duplex 04/19/24 05:45 IMPRESSION: 1. Multifocal deep vein thromboses of the right extremity as noted above. 2. Possible partial superficial thrombophlebitis noted of the left saphenous vein. Recent Clincial Data Last Vital Signs Temp 98.0 F 04/21/24 04:30 Pulse 70 04/21/24 09:20 Resp 19 H 04/21/24 09:00 BP 118/64 04/21/24 09:00 Pulse Ox 95 04/21/24 09:20 O2 Del Method Room Air 04/21/24 09:20 O2 Flow Rate 2 04/20/24 21:15 Vital Signs Temp Pulse Resp BP Pulse Ox O2 Del Method O2 Del Method 04/21/24 09:20 70 95 Room Air 04/21/24 09:00 77 19 H 118/64 95 04/21/24 08:00 68 13 04/21/24 07:00 67 17 121/61 93 04/21/24 06:00 63 04/21/24 04:30 98.0 F 63 17 96/45 91 Room Air 04/21/24 04:15 63 16 96/45 04/21/24 04:00 58 L 12 105/52 90 Room Air 04/21/24 03:45 57 L 13 93/45 91 Room Air 04/21/24 03:30 58 L 12 112/55 91 Room Air 04/21/24 03:15 60 15 112/55 89 L Room Air 04/21/24 03:00 63 16 114/57 94 Room Air 04/21/24 02:45 68 17 114/57 92 04/21/24 02:41 15 94 04/21/24 02:30 56 L 13 97/46 91 04/21/24 02:15 58 L 14 97/46 92 04/21/24 02:00 58 L 13 96/49 91 04/21/24 01:45 59 L 21 H 96/49 92 04/21/24 01:30 61 13 107/48 91 04/21/24 01:15 62 14 107/48 94 04/21/24 01:00 60 14 97/46 94 04/21/24 00:45 61 19 H 97/46 88 L Intake & Output/Weight 04/19/24 04/20/24 04/21/24 04/22/24 06:59 06:59 06:59 06:59 Intake Total 400 / 400 4953.37 / 4953.37 1000 / 1000 Output Total 600 / 600 1550 / 1550 Balance 400 / 400 4353.37 / 4353.37 -550 / -550 Weight 79.379 kg 87.543 kg 88.904 kg Vitals Last Vital Signs Temp 98.0 F 04/21/24 04:30 Pulse 70 04/21/24 09:20 Resp 19 H 04/21/24 09:00 BP 118/64 04/21/24 09:00 Pulse Ox 95 04/21/24 09:20 O2 Del Method Room Air 04/21/24 09:20 O2 Flow Rate 2 04/20/24 21:15 TS Medications Medications Acetaminophen (Acetaminophen 325 Mg Tablet) 650 mg PO Q6H PRN PRN Reason: Mild/Mod Pain Or Temp >/= 101 Last Admin: 04/19/24 09:50 Dose: 650 mg Amiodarone HCl (Amiodarone 200 Mg Tablet) 400 mg PO DAILY EDGAR Last Admin: 04/21/24 08:28 Dose: 400 mg Atorvastatin Calcium (Atorvastatin 40 Mg Tablet) 40 mg PO BEDTIME EDGAR Last Admin: 04/20/24 20:34 Dose: 40 mg Chlorhexidine Gluconate (Chlorhexidine Gluconate 0.12% Btl 473 Ml) 30 ml MUCOUS MEM QID [facility] Last Admin: 04/21/24 08:30 Dose: 30 ml Dutasteride (Dutasteride 0.5 Mg Capsule) 0.5 mg PO DAILY [facility] Last Admin: 04/21/24 08:28 Dose: 0.5 mg Ferrous Sulfate (Ferrous Sulfate Ec 325 Mg Tablet) 325 mg PO DAILY [facility] Last Admin: 04/21/24 08:20 Dose: 325 mg Furosemide (Furosemide 20 Mg Tablet) 20 mg PO DAILY [facility] Last Admin: 04/21/24 08:29 Dose: 20 mg Vancomycin HCl 1,000 mg/ (Sodium Chloride) 250 mls @ 250 mls/hr IV Q12H [facility] Levothyroxine Sodium (Levothyroxine 88 Mcg Tablet) 88 mcg PO DAILY [facility] Last Admin: 04/21/24 08:29 Dose: 88 mcg Meropenem (Meropenem 500 Mg Sdv) 500 mg IVP Q8H [facility]; Protocol Last Admin: 04/21/24 08:29 Dose: 500 mg Morphine Sulfate (Morphine 4 Mg/Ml Sdv 1 Ml) 2 mg IVP Q4H PRN PRN Reason: SEVERE PAIN Last Admin: 04/21/24 02:41 Dose: 2 mg Morphine Sulfate (Morphine 4 Mg/Ml Sdv 1 Ml) 2 mg IVP ONCE PRN PRN Reason: SEVERE PAIN Last Admin: 04/20/24 16:52 Dose: 2 mg Naloxone HCl (Naloxone 0.4 Mg/Ml Sdv) 0.1 mg IVP Q2M PRN PRN Reason: OPIATERV Naloxone HCl (Naloxone 0.4 Mg/Ml Sdv) 0.1 mg IVP Q2M PRN PRN Reason: Respiratory rate less than 8. Ondansetron HCl (Ondansetron 2 Mg/Ml Sdv 2 Ml) 4 mg IVP Q8H PRN PRN Reason: vomiting, or N/V if npo Pantoprazole Sodium (Pantoprazole 40 Mg Sdv) 40 mg IVP Q12H [facility] Last Admin: 04/21/24 05:03 Dose: 40 mg Polysaccharide Iron Complex (Iron Polysaccharide Complex 150 Mg Capsule) 150 mg PO BIDWM [facility] Last Admin: 04/21/24 08:23 Dose: 150 mg Senna/Docusate Sodium (Sennosides-Docusate Tablet) 2 tab PO BID [facility] Last Admin: 04/21/24 08:24 Dose: 2 tab Sucralfate (Sucralfate 1 Gm/10 Ml Oral Liq Udc) 1 gm PO Q6H [facility] Last Admin: 04/21/24 10:12 Dose: 1 gm Tamsulosin HCl (Tamsulosin 0.4 Mg Capsule) 0.4 mg PO DAILY [facility] Last Admin: 04/21/24 08:24 Dose: 0.4 mg Discontinued Medications Fentanyl (Fentanyl 50 Mcg/Ml Inj 2ml) Confirm Administered Dose 100 mcg .ROUTE .STK-MED ONE Stop: 04/20/24 07:00 Heparin Sodium (Porcine) (Heparin 5,000 Unit/Ml Inj 1 Ml) 0 unit IVP PRN PRN; Protocol PRN Reason: Heparin Weight Based Protocol -Subsequent Bolus Heparin Sodium (Porcine) (Heparin 5,000 Unit/Ml Inj 1 Ml) 0 unit IVP ONCE ONE; Protocol Stop: 04/19/24 08:02 Last Increment: 04/19/24 09:04 Dose: 4,000 unit Incremental Dosing Total Given: 4,000 unit Heparin Sodium (Porcine) (Heparin 5,000 Unit/Ml Inj 1 Ml) Confirm Administered Dose 5,000 unit .ROUTE .STK-MED ONE Stop: 04/20/24 06:57 Sodium Chloride (Sodium Chloride 0.9%) 2,381.37 mls @ 2,381.37 mls/hr 30 ml/kg infuse over 1 hr (2381.37 ml) IV .Q1H ONE Stop: 04/19/24 03:22 Last Infusion: 04/19/24 07:06 Dose: Infused Sodium Chloride (Sodium Chloride 0.9%) 1,000 mls @ 75 mls/hr IV .[id number] [facility] Last Infusion: 04/20/24 01:07 Dose: Infused Heparin Sodium/Sodium Chloride (Heparin Drip) 25,000 unit in 500 mls @ 0 mls/hr IV CONT [facility]; Protocol Last Admin: 04/20/24 05:58 Dose: 15.75 unit/kg/hr, 25 mls/hr Vancomycin HCl / Sodium (Chloride) 250 mls @ 0 mls/hr [id number] PROTOCOL [facility]; Protocol Vancomycin HCl 1,000 mg/ (Sodium Chloride) 250 mls @ 250 mls/hr IV ONCE ONE Stop: 04/19/24 09:29 Last Infusion: 04/19/24 11:31 Dose: Infused Vancomycin HCl 750 mg/ Sodium (Chloride) 250 mls @ 250 mls/hr IV Q12H [facility] Last Admin: 04/21/24 08:29 Dose: 2 mls/hr Lidocaine HCl (Xylocaine) Confirm Administered Dose 20 mls @ as directed .ROUTE .STK-MED ONE Stop: 04/20/24 06:57 Sodium Chloride (Sodium Chloride 0.9%) Confirm Administered Dose 250 mls @ as directed .ROUTE .STK-MED ONE Stop: 04/20/24 07:02 Iohexol (Iohexol 350 Mg/Ml 500 Ml Btl (Per Ml)) 0 ml IV ONCE ONE Stop: 04/19/24 06:03 Last Admin: 04/19/24 06:02 Dose: 149 ml Ketamine HCl (Ketamine 100 Mg/Ml Inj 5 Ml) 80 mg IVP ONCE ONE Stop: 04/19/24 03:54 Last Admin: 04/19/24 04:05 Dose: 80 mg Midazolam HCl (Midazolam 1 Mg/Ml Inj 2 Ml) 1 mg IVP ONCE ONE Stop: 04/19/24 03:54 Last Admin: 04/19/24 04:05 Dose: 1 mg Midazolam HCl (Midazolam 1 Mg/Ml Inj 2 Ml) Confirm Administered Dose 2 mg .ROUTE .STK-MED ONE Stop: 04/20/24 07:32 Morphine Sulfate (Morphine 4 Mg/Ml Sdv 1 Ml) 2 mg IVP ONCE ONE Stop: 04/19/24 02:24 Last Admin: 04/19/24 02:47 Dose: 2 mg Morphine Sulfate (Morphine 4 Mg/Ml Sdv 1 Ml) 2 mg IVP ONCE ONE Stop: 04/19/24 03:32 Last Admin: 04/19/24 03:33 Dose: 2 mg Ondansetron HCl (Ondansetron 2 Mg/Ml Sdv 2 Ml) 4 mg IVP ONCE ONE Stop: 04/19/24 02:24 Last Admin: 04/19/24 02:47 Dose: 4 mg Ondansetron HCl (Ondansetron 2 Mg/Ml Sdv 2 Ml) 4 mg IVP ONCE ONE Stop: 04/19/24 03:54 Last Admin: 04/19/24 04:05 Dose: 4 mg Pantoprazole Sodium (Pantoprazole 40 Mg Sdv) 40 mg IVP Q24H EDGAR Last Admin: 04/19/24 07:01 Dose: 40 mg Sodium Chloride (Sodium Chloride 0.9% 100 Ml Bag) 50 ml IV PRN PRN PRN Reason: Blood transfusion prime and flush Stop: 04/20/24 05:25 Last Admin: 04/19/24 08:03 Dose: 50 ml Sodium Chloride (Sodium Chloride 0.9% 50 Ml Bag) 50 ml IV PRN PRN PRN Reason: Blood transfusion prime and flush Stop: 04/21/24 09:41 Allergies Sulfa (Sulfonamide Antibiotics) Allergy (Unknown, Verified 04/19/24 02:05) Unknown Home Medications acetaminophen 650 mg tablet,extended release 650 mg PO Q12H PRN Pain 06/21/19 [History Confirmed 04/19/24] ferrous sulfate 325 mg (65 mg iron) tablet 325 mg PO DAILY 03/07/20 [History Confirmed 04/19/24] furosemide 20 mg tablet (Lasix) 20 mg PO DAILY 12/04/21 [History Confirmed 04/19/24] budesonide-formoterol HFA 160 mcg-4.5 mcg/actuation aerosol inhaler (Symbicort) 1 puff inhalation BID 12/26/21 [History Confirmed 04/19/24] hydrocodone 10 mg-acetaminophen 325 mg tablet 1 tab PO Q6H 12/26/21 [History Confirmed 04/19/24] amiodarone 200 mg tablet 400 mg (2 x 200 mg) PO DAILY #180 tabs 05/21/23 [Rx Confirmed 04/19/24] dutasteride 0.5 mg capsule 0.5 mg PO DAILY 04/19/24 [History Confirmed 04/19/24] levothyroxine 88 mcg tablet 88 mcg PO DAILY 04/19/24 [History Confirmed 04/19/24] rosuvastatin 20 mg tablet 20 mg PO QPM 04/19/24 [History Confirmed 04/19/24] tamsulosin 0.4 mg capsule 0.4 mg PO DAILY 04/19/24 [History Confirmed 04/19/24] Discharge Plan Discharge Patient Disposition: Home Condition: Serious Prescriptions: No Action acetaminophen 650 mg tablet extended release 650 mg PO Q12H PRN (Reason: Pain) ferrous sulfate 325 mg (65 mg iron) tablet 325 mg PO DAILY furosemide [Lasix] 20 mg tablet 20 mg PO DAILY hydrocodone-acetaminophen 10-325 mg tablet 1 tab PO Q6H budesonide-formoterol [Symbicort] 160-4.5 mcg/actuation HFA aerosol inhaler 1 puff inhalation BID amiodarone 200 mg tablet 400 mg PO DAILY Qty: 180 3RF levothyroxine 88 mcg tablet 88 mcg PO DAILY tamsulosin 0.4 mg capsule 0.4 mg PO DAILY dutasteride 0.5 mg capsule 0.5 mg PO DAILY rosuvastatin 20 mg tablet 20 mg PO QPM Discharge Orders: Transfer Out of Facility (Order); Ordered 04/21/24 Ordered By: Antonio Christensen Referrals: Supriya Arango [Primary Care Provider] - Patient Instructions: Opioid Safety Transfer Attestations Time Spent in Transfer Care: greater than 30 min Quality Metrics Clinical Quality Measures [ No reported AMI, CVA or VTE this stay] Coding Level of Care Code Acute Code for Chg Fwd Diagnoses Bilateral pulmonary embolism I26.99 Right leg DVT I82.401 Acute anemia D64.9 GI bleed K92.2 NSTEMI (non-ST elevated myocardial infarction) I21.4 Failure of right total hip arthroplasty with dislocation of hip T84.020A Pneumonia J18.9 Acute hypoxic respiratory failure J96.01 Staphylococcus epidermidis bacteremia R78.81; B95.7
--- NOTE | 2024-04-21 17:12 | ECG_ITS ---
[facility] Test Date: 2024-04-21 Pat Name: James Villasenor Department: Room: ICU07 Gender: Male Barrel Turner: : 1935 Requested By: Antonio Christensen Order Number: [id number] Willie MD: Amina Oliver M.D. Measurements Intervals [place] Rate: 78 P: 108 HI: 212 QRS: -69 QRSD: 173 T: 21 QT: 437 QTc: 499 Interpretive Statements SINUS RHYTHM WITH FIRST DEGREE AV BLOCK WITH OCCASIONAL SUPRAVENTRICULAR PREMATURE COMPLEXES RIGHT BUNDLE BRANCH BLOCK [120+ ms QRS DURATION, UPRIGHT V1, 40+ ms S IN I/aVL/V4/V5/V6] LEFT ANTERIOR FASCICULAR BLOCK [QRS AXIS <= -45, QR IN I, RS IN II] Compared to ECG 04/19/2024 12:12:33 First degree AV block now present Right bundle-branch block now present Left anterior fascicular block now present Intraventricular conduction delay no longer present Myocardial infarct finding no longer present Electronically Signed On 04-21-2024 17:36:37 POLISHER APPRENTICE by Amina Oliver M.D. [email or web address]
--- NOTE | 2024-04-21 17:27 | PC.NURSE ---
C/O of chest pain and sob, see EKG. c/o resolved with 2L NC. Dr. Christensen notified no N.O.
[2024-04-21] MEDS: ondansetron 2 mg/ML SDV 2 mL 4 MG IVP (18:32)
[2024-04-21] MEDS: norepinephrine 4 MG/250 ML BAG 15 MG IV (18:55)
--- NOTE | 2024-04-21 19:05 | PC.NURSE ---
Got patient up to bedside commode, patient became unresponsive, very shallow breathing, bp in the 50s, bolused [address] Christensen gave vo for levophed, transfer to [facility] surg bed at [facility] canceled
[2024-04-21] MEDS: sodium chloride 0.9% 250 ML 999 ML IV (19:12)
--- NOTE | 2024-04-21 19:25 | PC.NURSE ---
updated on change in condition
[2024-04-21 19:44] LABS: Alanine Aminotransferase 101 U/L (0-41); Alkaline Phosphatase 87 U/L (40-130); Anion Gap 15.3 (5-19); Aspartate Amino Transferase 92 U/L (0-40); Blood Urea Nitrogen 28 mg/dL (8-23); Calcium 9.2 mg/dL (8.5-10.5); Carbon Dioxide 21 mmol/L (22-29); Chloride 102 mmol/L (98-107); Creatinine Clr Calc Pharmacy 38.0929; Globulin 3.4 g/dL (1.3-4.6); Glucose 166 mg/dL (65-115); Osmolality Calculated 287 mOsm/kg (285-295); Potassium 4.3 mmol/L (3.5-5.1); Sodium 134 mmol/L (136-145); Total Bilirubin 0.4 mg/dL (0.15-1.2); Total Protein 6.4 g/dL (6.6-8.7)
[2024-04-21 19:45] LABS: Lactic Sepsis W/Reflex 1.8 mmol/L (0.5-2.2)
[2024-04-21 20:00] LABS: Hematocrit 29.7 % (37-53); Mean Corpuscular HGB Conc 31.3 g/dL (30-55); Mean Corpuscular Hemoglobin 30.6 pg (27-33); Mean Corpuscular Volume 97.7 fl (82-101); Mean Platelet Volume 8.9 fL (7.4-10.4); Platelet Count 176 10^3/cmm (157-399); Red Blood Count 3.04 10^6/uL (3.85-5.65); Red Cell Distribution Width 14.6 % (12.1-15.1); White Blood Count 10.25 10^3/uL (3.29-11.43)
[2024-04-21 20:01] LABS: Absolute Eosinophils 0.2 10^3/cmm (0.0-0.7); Absolute Segmented Neutrophil 7.9 10/cmm (1.6-7.1); Eosinophils 2 %; Lymphocytes 12 %; Monocytes Absolute 0.8 10^3/cmm (0.1-0.6); Segmented Neutrophils 77 %; Total Cells Counted 100 (0-100)
[2024-04-21 20:02] LABS: Lymphocytes Absolute 1.3 10^3/cmm (1.2-3.4); Platelet Estimate Normal (Normal)
[2024-04-21] MEDS: atorvastatin 40 mg Tablet PO (20:13)
[2024-04-21] MEDS: VANCOMYCIN ADD-Vantage 1,000 MG in 0.9% NaCl ADD-Vantage 250 ML 250 MG IV (20:13)
[2024-04-22] VITALS (88 sets, daily range): BP systolic 72–116; BP diastolic 45–69; PULSE 67–117; RESP 13–35; TEMP 36.7–37.4; O2SAT 68–100; BMI 31.8
[2024-04-22] MEDS: pantoprazole 40 mg SDV IVP ×2 (05:39→17:23)
[2024-04-22] MEDS: sucralfate 1 gm/10 mL Oral Liq UDC PO ×4 (05:39→22:22)
[2024-04-22 05:41] LABS: Basophils % 0.3 %; Eosinophils # 0.1 10^3/uL (0.0-0.8); Eosinophils % 0.5 %; Lymphocytes # 1.7 10^3/uL (0.8-4.8); Lymphocytes % 12.9 %; Mean Corpuscular HGB Conc 30.7 g/dL (30-55); Mean Corpuscular Hemoglobin 30.3 pg (27-33); Mean Corpuscular Volume 98.7 fl (82-101); Mean Platelet Volume 8.9 fL (7.4-10.4); Monocytes # 1.3 10^3/uL (0.2-0.9); Monocytes % 9.6 %; Neutrophils # 9.71 10^3/uL (1.8-7.7); Neutrophils % 74.8 %; Nucleated Red Blood Cells % 0 %; Platelet Count 146 10^3/cmm (157-399); Red Blood Count 3.04 10^6/uL (3.85-5.65); Red Cell Distribution Width 14.6 % (12.1-15.1); White Blood Count 12.99 10^3/uL (3.29-11.43)
--- NOTE | 2024-04-22 05:49 | PC.NURSE ---
Bladder scan: Patient complained of pressure and needing to urinate, had only urinated 25mL for the evening. A bladder scan was done showing 22mL of urine in the bladder. Dr. Andrews made aware, will continue to monitor patients I&Os.
[2024-04-22 05:52] LABS: INR 1.07 (0.8-1.2)
[2024-04-22 06:02] LABS: Alanine Aminotransferase 98 U/L (0-41); Alkaline Phosphatase 95 U/L (40-130); Anion Gap 18.5 (5-19); Aspartate Amino Transferase 87 U/L (0-40); Blood Urea Nitrogen 33 mg/dL (8-23); C Reactive Protein 213.2 mg/L (0.0-4.9); Calcium 9.2 mg/dL (8.5-10.5); Carbon Dioxide 19 mmol/L (22-29); Chloride 98 mmol/L (98-107); Creatinine Clr Calc Pharmacy 25.4888; Globulin 3.6 g/dL (1.3-4.6); Glucose 158 mg/dL (65-115); Magnesium 1.8 mg/dL (1.7-2.3); Osmolality Calculated 283 mOsm/kg (285-295); Phosphorus 3.4 mg/dL (2.5-4.5); Potassium 4.5 mmol/L (3.5-5.1); Sodium 131 mmol/L (136-145); Total Bilirubin 0.4 mg/dL (0.15-1.2); Total Protein 6.6 g/dL (6.6-8.7)
[2024-04-22 06:09] LABS: NT Pro B Type Natriuretic Pept 2124 pg/mL (0-450); Procalcitonin 0.42 ng/mL (0-0.5)
[2024-04-22] MEDS: meropenem 500 mg SDV IVP (08:33)
[2024-04-22] MEDS: iron polysaccharide complex 150 mg Capsule PO (08:33)
[2024-04-22] MEDS: sennosides-docusate Tablet 2 TAB PO ×2 (08:34→17:23)
[2024-04-22] MEDS: dutasteride 0.5 mg Capsule PO (08:34)
[2024-04-22] MEDS: ferrous sulfate EC 325 mg Tablet PO (08:34)
[2024-04-22] MEDS: chlorhexidine gluconate 0.12% Btl 473 mL 30 ML MUCOUS MEM ×2 (08:34→17:22)
[2024-04-22] MEDS: tamsulosin 0.4 mg Capsule PO (08:34)
[2024-04-22] MEDS: amiodarone 200 mg Tablet 400 MG PO (08:34)
[2024-04-22] MEDS: levothyroxine 88 mcg Tablet PO (08:34)
[2024-04-22] MEDS: sodium chloride 0.9% 1,000 ML 100 ML IV (08:35)
[2024-04-22 08:53] LABS: Creatine Phosphokinase 162 U/L (39-308)
[2024-04-22 09:26] LABS: Lactic Sepsis W/Reflex 1.6 mmol/L (0.5-2.2)
--- NOTE | 2024-04-22 09:54 | US_ITS ---
WS: [id number] RENAL ULTRASOUND HISTORY: emy COMPARISON: None available. TECHNIQUE: 2-D and color Doppler imaging of the kidney submitted. Right kidney: 11.2 cm x 5.1 cm x 5.6 cm. Cortex: 1.0 cm Normal echogenicity with no hydronephrosis or mass. Left kidney: 9.6 cm x 4.4 cm x 4.7 cm. Cortex: 1.0 cm Poorly visualized kidney. No hydronephrosis. Aorta: Normal. Urinary Bladder: Guillaume catheter present. US/US renal BI* [id number] IMPRESSION: 1. No hydronephrosis. 2. LEFT kidney is not well visualized. 3. Mild bilateral cortical thinning.
[2024-04-22] MEDS: midodrine 5 mg TABLET 10 MG PO ×2 (10:49→17:22)
--- NOTE | 2024-04-22 11:17 | XR_ITS ---
WS: [id number] PORTABLE CHEST x2 HISTORY: Picc line COMPARISON: None available. Images at 11:25 a.m.: Right-sided PICC line is been placed. Recommend retracting the PICC line 2.1 cm for more optimal positioning. Not all of the RIGHT lung is been included. No dense consolidation. No pleural effusion or pneumothor ax. Cardiac size: Normal. Mediastinum/Aorta: Mild atherosclerosis aorta. LEFT subclavian defibrillator. No osseous abnormality seen. XR/XR chest 1V portable [id number] IMPRESSION: 1. Recommend retracting RIGHT PICC line 2.1 cm for more optimal positioning. 2. No complications. Image at 11:30 a.m.: PICC line reposition. PICC line is now in good position wi th tip ending at the aortocaval junction.
--- NOTE | 2024-04-22 12:02 | PICC.NOTE ---
Trriple lumen PICC placed to right basilic vein. Referred to vascular access nurse for PICC placement due to poor venous access. Risks and benefits discussed and informed consent obtained. Patient with history of left pacemaker. Right arm assessed with basilic vein measuring 3.8 mm, straight, and apparent best choice for placement. Using sterile technique and MST, right basilic vein accessed x 1 stick. Mid-arm circumference measured 10 cm from _right AC 29 cm. Trimmed cath 41 cm with 1 cm external length noted. CXR shows tip in cavoatrial junction, in good position for use per radiologist. Line secured with stat-lock. Insertion site covered with Biopatch and TSM. Report given to bedside nurse, EMI Armstrong.
--- NOTE | 2024-04-22 13:20 | P.PN_ITS ---
Subjective 2 Subjective: Patient feeling well. No chest pain. Has PILO. Vitals/I&O/Wt Last Vital Signs Temp 98.2 F 04/22/24 04:30 Pulse 77 04/22/24 12:15 Resp 22 H 04/22/24 12:15 BP 86/55 04/22/24 12:15 Pulse Ox 95 04/22/24 12:15 O2 Del Method Nasal Cannula 04/22/24 08:42 O2 Flow Rate 2 04/22/24 08:42 04/21/24 04/22/24 04/22/24 22:59 06:59 14:59 Intake Total 265.50 / 515.50 350 / 865.50 150 / 150 Output Total 600 / 600 25 / 625 Balance -334.50 / -84.50 325 / 240.50 150 / 150 Weight last 48 hrs Weight 197 lb 8 oz Weight 196 lb Physical Exam 2 Narrative: GENERAL: Patient is alert, awake and oriented x3. [] NECK: No jugular vein distension. [] HEENT: No cyanosis. No icterus. No pallor. [] HEART: Regular S1 and S2. No murmur, rub or gallop. [] LUNGS: Clear to auscultate bilaterally. [] CENTRAL NERVOUS SYSTEM: Grossly nonfocal. [] EXTREMITIES: Lower extremities with 1+ edema bilaterally. Data 04/23/24 04:41 04/23/24 04:41 Micro: Microbiology 04/19/24 02:00 Blood Culture - Preliminary Blood Staphylococcus epidermidis 04/21/24 04:32 Blood Culture - Preliminary Blood NEGATIVE TO DATE 04/21/24 04:28 Blood Culture - Preliminary Blood NEGATIVE TO DATE A&P Assessment and plan (1) Right leg DVT: (2) Bilateral pulmonary embolism: (3) Cardiomyopathy: Qualifiers: Cardiomyopathy type: other Qualified Code(s): I42.8 - Other cardiomyopathies (4) ICD (implantable cardioverter-defibrillator) in place: (5) CHF (congestive heart failure): Qualifiers: Heart failure type: systolic Heart failure chronicity: chronic Qualified Code(s): I50.22 - Chronic systolic (congestive) heart failure (6) GI bleed: (7) Staphylococcus epidermidis bacteremia: (8) Acute anemia: Plan Patient is developed PILO. Nephrology on board. Likely secondary to hypotension and contrast exposure. Hemoglobin is stable. Patient is off of anticoagulation. IVC filter in place. Thank you for involving us with care of this patient. Please call with questions. Attestations 2 Medical Necessity Statement*: Care expected to cross 2 midinghts. Coding Level of Care Code Acute Code for Chg Fwd Diagnoses Right leg DVT I82.401 Bilateral pulmonary embolism I26.99 Other cardiomyopathy I42.8 Cardiomyopathy type: other ICD (implantable cardioverter-defibrillator) in place Z95.810 Chronic systolic congestive heart failure I50.22 Heart failure type: systolic Heart failure chronicity: chronic GI bleed K92.2 Staphylococcus epidermidis bacteremia R78.81; B95.7 Acute anemia D64.9
[2024-04-22 15:14] LABS: Blood Urea Nitrogen 43 mg/dL (8-23); Calcium 8.8 mg/dL (8.5-10.5); Carbon Dioxide 19 mmol/L (22-29); Chloride 97 mmol/L (98-107); Creatinine Clr Calc Pharmacy 21.4106; Glucose 174 mg/dL (65-115); Osmolality Calculated 285 mOsm/kg (285-295); Sodium 130 mmol/L (136-145)
[2024-04-22 15:15] LABS: Anion Gap 19.5 (5-19); Potassium 5.5 mmol/L (3.5-5.1)
[2024-04-22] MEDS: sodium polystyrene sulfonate 15 gm/60 mL Btl PO (16:04)
--- NOTE | 2024-04-22 16:20 | P.PN_ITS ---
Subjective 2 Subjective: - Events of overnight -Plans on transferring to [facility] in [facility], patient was awaiting transport -Yesterday at about 6:30 PM, patient was getting up to the side of the bed with the help of nursing staff, when he became less responsive, became confused, nursing staff and believed he vagal down and became orthostatic -Patient was placed back to bed placed i n Trendelenburg given 250 mL bolus of fluids -MAP still less than 65 placed on Levoph ed -Overnight maps remain around 65 he reid ined on about 4 Levophed which was weaned off at about 7 AM -Urine output was lackluster overnight, started on IV fluids, normal saline 100 cc an hour, placed on midodrine 10 3 times daily -Patient remained off Levophed since 7 A M -He is alert oriented x 3, following all commands, does feel unwell but denies feeling chest pain, no shortness of breath, no abdominal pain, no flank pain, no fevers, no chills -We discussed his orthostatic hypotensio n, possible vasovagal syncopal episode -Discussed plan to give him fluids, mido drine, renal ultrasound, consult nephrology and give him time -He has been assessed at [facility], but last night as he became orthostatic positive, had a vasovagal episode was hypotensive, thus his transfer was held -Discussed with him that hopefully today we could transfer him if he remains off Levophed, his clinical condition remains stable we can still hopefully processes transfer -Patient was reexamined throughout the d ay, remains alert oriented x 3, following all commands, maps remained above 65, he has no complaints, is on 2 L, no complaint of shortness of breath, urine output remains lackluster -Creatinine this morning was 2.1, lactic acid normal at 1.6, CPK within normal limits, CRP trending downwards to 213, LFTs also trending down, white blood cell count 12.99, hemoglobin stable at 9.2, -Patient was kept in bed -Reexamined in the afternoon, creatinine up to 2.5, urine output remains lackluster renal ultrasound no acute findings, potassium 5.5 will give Kayexalate, will switch fluids to sodium bicarb, repeat BMP at 9 PM, nephrology consulted # Had a meeting with patient's and patient's daughter, they are eager for transfer, to [facility], we discussed events overnight, they are understandable, still in agreement, discussed his hypotensive episode, now off pressors, PICC line in place, in the interim, now with acute renal failure monitor urine output, monitor creatinine, nephrology consultation, on fluids # Spoke to [facility] transfer line, they recommended continued monitoring for another 24 hours, if patient remains off pressors for at least 24 hours they are willing to take him tomorrow morning Vitals/I&O/Wt Last Vital Signs Temp 98.2 F 04/22/24 04:30 Pulse 77 04/22/24 12:15 Resp 22 H 04/22/24 12:15 BP 86/55 04/22/24 12:15 Pulse Ox 95 04/22/24 12:15 O2 Del Method Nasal Cannula 04/22/24 08:42 O2 Flow Rate 2 04/22/24 08:42 04/22/24 04/22/24 04/22/24 06:59 14:59 22:59 Intake Total 350 / 865.50 336.25 / 336.25 Output Total 25 / 625 Balance 325 / 240.50 336.25 / 336.25 Weight last 48 hrs Weight 89.584 kg Weight 88.904 kg Physical Exam 2 Const: COMMON NORMALS: no acute distress and patient oriented x3 Resp: COMMON NORMALS: normal respiratory effort, No retractions, No use of accessory muscles and clear to auscultation bilaterally AUSCULTATION: clear to auscultation bilaterally Cardio: COMMON NORMALS: regular rate, regular rhythm, S1 normal heart sound present and S2 normal heart sound present RATE: regular rate RHYTHM: r egular rhythm HEART SOUNDS: S1 normal heart sound present and S2 normal heart sound present GI: COMMON NORMALS: Normal to inspection, nondistended, normoactive bowel sounds present and non-tender Extremity: COMMON NORMALS: no pedal edema Neuro: COMMON NORMALS: patient oriented x3 Psych: COMMON NORMALS: mental status grossly normal Urinary Catheter Management: Guillaume: Cath Placed During This Visit: yes Urinary Catheter Date of Insertion: 04/22/24 Urinary Catheter Time of Insertion: 13:00 Data 04/22/24 05:14 04/22/24 14:44 Micro: Microbiology 04/19/24 02:00 Blood Culture - Preliminary Blood Staphylococcus epidermidis 04/21/24 04:32 Blood Culture - Preliminary Blood NEGATIVE TO DATE 04/21/24 04:28 Blood Culture - Preliminary Blood NEGATIVE TO DATE A&P Assessment and plan (1) Bilateral pulmonary embolism: (2) Right leg DVT: (3) Acute anemia: (4) GI bleed: (5) NSTEMI (non-ST elevated myocardial infarction): (6) Failure of right total hip arthroplasty with dislocation of hip: (7) Pneumonia: (8) Acute hypoxic respiratory failure: (9) Staphylococcus epidermidis bacteremia: (10) Acute renal failure: (11) Shock: Plan Shock -Likely combination of vasovagal syncope, orthostatic hypotension, dehydration -EKG within normal limits, no chest pain complaints -Lactic acid 1.9 -Creatinine down to 213, afebrile, repeat blood cultures so far negative, leukocytosis up to 12.99 -PICC line placed -Required Levophed overnight, off Levophed since 7 AM -Maintain MAP greater than 65 -Placed on midodrine 10 3 times daily -Was on IV fluids normal saline -Switch to's sodium bicarb drip ? Monitor Acute renal failure -Likely secondary to hypotensive episode -Creatinine up to 2.5 -Renal ultrasound within normal limits -Urine output lackluster -Monitor urine output, monitor creatinine -Guillaume catheter in place -Nephrology consulted Acute hypoxic respiratory failure, resolved patient is on room air ? Secondary to bilateral PEs ? Secondary to pneumonia ? CT/CT angio chest PE protcl [id number] IMPRESSION: 1. Bilateral multifocal pulmonary emboli centered about the segmental pulmonary arteries extending into the subsegmental arteries as detailed above. 2. Nonspecific lung findings which can be seen in acute on chronic bronchitis, small airway disease, air trapping, correlate clinically. # Complicated by acute anemia, concerns for slow GI bleed ? Plan ? Continue vancomycin -continue meropenem ? DuoNeb ? Follow blood cultures ? Monitor respiratory status closely ? Hemoglobin down to 6.9, heparin drip stopped, IVC filter placed, hemoglobin up to 9.4 -Hold off on anticoagulant therapy given persistent anemia Staphylococcus epidermidis bacteremia ? Highly suspicious for prosthetic joint infection, surgical site infection patient 3 weeks out of surgery -2 out of 4 blood cultures positive -Did have right hip hardware in place -Imaging results as below -CRP up to 213, ? With spontaneous right hip dislocation, evidence of periprosthetic loosening ? Makes me very highly concerned for prosthetic joint infection, surgical site infection -For now continue vancomycin -For follow repeat blood cultures # Transfer to [facility] pending as above # Will require IR guided drainage of right hip Right hip replacement -Status post nontraumatic hip displacement -Status post reduction in the emergency room -CT scan as below CT/CT hip RT w con [id number] IMPRESSION: 1. Greater trochanter and iliopsoas bursitis, given rim thickening and enhancement, difficult to exclude periprosthetic infection in the setting of total hip arthroplasty. Differentials include traumatic and hemorrhagic bursitis. 2. Posttraumatic change of the right hip subcutaneous fat with a small crescent of collection adjacent the superficial muscle fascia which could represent Larry Yosvany given the clinical situation. 3. Multiple ill-defined hyperattenuating foci adjacent the prosthesis which likely represents intramuscular and extra muscular hemorrhage. 4. Filling defect within the deep femoral system of the right extremity. 5. Prominent periarticular lucency about the acetabular cup which likely indicates loosening, however difficult to exclude other etiologies of periprosthetic loosening (i.e. infection, particle disease). -Surgical site on examination looks clean and dry, no active drainage or erythema or hematoma -Spoke to Dr. Cheng, [facility] orthopedics about results, recommended medical management, low risk of prosthetic joint infection, recommend continued monitoring if any concerns can call them back -Staph epidermidis bacteremia as above, will monitor, continue vancomycin -Monitor inflammatory markers ? Repeat blood cultures pending # IR guided drainage of right hip Right lower extremity D[place] US/[place] [id number] IMPRESSION: 1. Multifocal deep vein thromboses of the right extremity as noted above. 2. Possible partial superficial thrombophlebitis noted of the left saphenous vein. - As above NSTEMI ? Likely secondary to bilateral PEs as above ? Continue heparin drip for now -Cardiac echo CONCLUSIONS Normal left ventricular size and systolic function, EF 55%.no regional wall motion abnormalities. Grade I/IV diastolic dysfunction (abnormal relaxation filling pattern), normal to mildly elevated filling pressures. Catheter/pacemaker wire in the right ventricular cavity. Mildly increased left atrial size. Mild mitral annular calcification. Mild aortic valve stenosis, mean gradient 14.8 mmHg, JUAN 1.6 cm squared. Mild tricuspid valve regurgitation. Estimated pulmonary artery peak systolic pressure 41 mmHg. There is no pericardial effusion. There are no intracardiac masses. Compared to the study from 12/21/2017, there is significant improvement in the LV ejection fraction from 40% to 55% Acute anemia -Status post 1 unit PRBC, now with persistent anemia ? With evidence of early deficiency anemia -Protonix, Carafate -Monitor hemoglobin -Monitor hemoglobin in 4 hours -Hemoglobin 6.9, heparin drip stopped ? Hemoglobin up to 9.4 -Transfuse if hemoglobin less than 8 Transaminitis, monitor Full code # SCDs for DVT prophylaxis, Plan for today continue IV antibiotics, continue sodium bicarb drip, continue midodrine, monitor urine output monitor creatinine nephrology consulted awaiting a bed at [facility], spoke to patient, spoke to nephrology, spoke to patient's family, spoke to patient, patient seen multiple times throughout the day Attestations 2 Medical Necessity Statement*: Patient requires hospitalization due to shock, likely sec to orthostatic hypotension, vasovagal syncope, strep epidermidis bacteremia, Diagnoses Bilateral pulmonary embolism I26.99 Right leg DVT I82.401 Acute anemia D64.9 GI bleed K92.2 NSTEMI (non-ST elevated myocardial infarction) I21.4 Failure of right total hip arthroplasty with dislocation of hip T84.020A Pneumonia J18.9 Acute hypoxic respiratory failure J96.01 Staphylococcus epidermidis bacteremia R78.81; B95.7 Acute renal failure N17.9 Shock R57.9
[2024-04-22] MEDS: albumin 25 G/100 ML BAG 60 G IV (17:21)
[2024-04-22] MEDS: sodium bicarbonate 50 MEQ in sodium chloride 0.45% 1,000 ML 100 MEQ IV (17:21)
[2024-04-22] MEDS: sodium bicarbonate 8.4% 1 mEq/mL 50mL Syr 50 MEQ IVP (17:23)
--- NOTE | 2024-04-22 18:14 | P.CONIM_ITS ---
Providers/Reason For Consult 2 Consulting Physician/Specialty*: kommana/nephrology Reason for Consult*: PILO Attending Physician: Antonio Christensen MD Primary Care Provider: Supriya Arango History of Present Illness History of Present Illness James Villasenor is a 88 year old male Patient is a 88-year-old male with past medical history significant for nonischemic cardiomyopathy, history of pacemaker, hypertension GERD dyslipidemia was admitted to the [facility] on 04/19/2024 due to right hip pain. Patient recently had right hip replacement and was in rehab but started having severe hip pain. In the ER he was noted to be hypoxic on further workup has showed bilateral pulmonary embolism. Also thought to have possible pneumonia. Patient now have IVC filter placed on anticoagulation was held due to acute and anemia. Also noted to have hip dislocation which was reduced. Hospitalization was further complicated by Staph epidermidis bacteremia and there is concern for periprosthetic infection plan to transfer the patient to [facility] but last night patient had an episode of sudden onset hypotension and less responsive. Transferred to ICU was placed on Levophed and currently Levophed is turned off. Patient's blood pressure 90s to 110s systolic. Was started on midodrine and IV albumin. Also started on IV bicarbonate drip. He is currently on 2 L O2 by nasal cannula. Patient's creatinine was 0.9 on presentation worsened to 2.5 today, also has hyperkalemia with a potassium of 5.5 and metabolic acidosis with a CO2 level of 19. Medications/Allergies Home Medications Medication Instructions Recorded Confirmed Last Taken Type acetaminophen 650 mg 650 mg PO Q12H PRN Pain 06/21/19 04/19/24 Unknown History tablet,extended release ferrous sulfate 325 mg (65 mg 325 mg PO DAILY 03/07/20 04/19/24 05/09/20 History iron) tablet furosemide 20 mg tablet (Lasix) 20 mg PO DAILY 12/04/21 04/19/24 Unknown History budesonide-formoterol HFA 160 1 puff inhalation BID 12/26/21 04/19/24 Unknown History mcg-4.5 mcg/actuation aerosol inhaler (Symbicort) hydrocodone 10 mg-acetaminophen 1 tab PO Q6H 12/26/21 04/19/24 Unknown History 325 mg tablet amiodarone 200 mg tablet 400 mg (2 x 200 mg) PO DAILY #180 05/21/23 04/19/24 Unknown Rx tabs dutasteride 0.5 mg capsule 0.5 mg PO DAILY 04/19/24 04/19/24 Unknown History levothyroxine 88 mcg tablet 88 mcg PO DAILY 04/19/24 04/19/24 Unknown History rosuvastatin 20 mg tablet 20 mg PO QPM 04/19/24 04/19/24 Unknown History tamsulosin 0.4 mg capsule 0.4 mg PO DAILY 04/19/24 04/19/24 Unknown History Allergies Allergy/AdvReac Type Severity Reaction Status Date / Time Sulfa (Sulfonamide Allergy Unknown Unknown Verified 04/19/24 02:05 Antibiotics) Current Medications Generic Name Dose Route Start Last Admin Trade Name Freq PRN Reason Stop Dose Admin Acetaminophen 650 mg 04/19/24 05:34 04/19/24 09:50 Acetaminophen 325 Mg Tablet PO 650 mg Q6H PRN Administration Mild/Mod Pain Or Temp >/= 101 Amiodarone HCl 400 mg 04/20/24 09:00 04/22/24 08:34 Amiodarone 200 Mg Tablet PO 400 mg DAILY EDGAR Administration Atorvastatin Calcium 40 mg 04/19/24 21:00 04/21/24 20:13 Atorvastatin 40 Mg Tablet PO 40 mg BEDTIME EDGAR Administration Chlorhexidine Gluconate 30 ml 04/20/24 13:00 04/22/24 17:22 Chlorhexidine Gluconate 0.12% Btl 473 Ml MUCOUS MEM 30 ml QID EDGAR Administration Dutasteride 0.5 mg 04/20/24 09:00 04/22/24 08:34 Dutasteride 0.5 Mg Capsule PO 0.5 mg DAILY EDGAR Administration Ferrous Sulfate 325 mg 04/20/24 09:00 04/22/24 08:34 Ferrous Sulfate Ec 325 Mg Tablet PO 325 mg DAILY EDGAR Administration Norepinephrine Bitartrate 4 mg in 250 mls @ 0 mls/hr 04/21/24 19:00 04/22/24 08:00 Levophed IV 0 mcg/min .Q0M EDGAR 0 mls/hr Titration Protocol Per Protocol Sodium Bicarbonate 50 meq/ 1,050 mls @ 100 mls/hr 04/22/24 17:00 04/22/24 17:21 Sodium Chloride IV 100 mls/hr .[id number] EDGAR Administration Levothyroxine Sodium 88 mcg 04/20/24 09:00 04/22/24 08:34 Levothyroxine 88 Mcg Tablet PO 88 mcg DAILY EDGAR Administration Midodrine 10 mg 04/22/24 10:00 04/22/24 17:22 Midodrine 5 Mg Tablet PO 10 mg Q8H EDGAR Administration Morphine Sulfate 2 mg 04/19/24 05:34 04/21/24 02:41 Morphine 4 Mg/Ml Sdv 1 Ml IVP 2 mg Q4H PRN Administration SEVERE PAIN Ondansetron HCl 4 mg 04/19/24 05:34 04/21/24 18:32 Ondansetron 2 Mg/Ml Sdv 2 Ml IVP 4 mg Q8H PRN Administration vomiting, or N/V if npo Pantoprazole Sodium 40 mg 04/19/24 18:00 04/22/24 17:23 Pantoprazole 40 Mg Sdv IVP 40 mg Q12H EDGAR Administration Senna/Docusate Sodium 2 tab 04/20/24 18:00 04/22/24 17:23 Sennosides-Docusate Tablet PO 2 tab BID EDGAR Administration Sucralfate 1 gm 04/19/24 11:00 04/22/24 17:22 Sucralfate 1 Gm/10 Ml Oral Liq Udc PO 1 gm Q6H EDGAR Administration Tamsulosin HCl 0.4 mg 04/20/24 09:00 04/22/24 08:34 Tamsulosin 0.4 Mg Capsule PO 0.4 mg DAILY EDGAR Administration PFSH Acute 2 PFSH: Medical History Aortic aneurysm Surgery History of nonmelanoma skin cancer Right inguinal hernia BPH (benign prostatic hyperplasia) Dyslipidemia HTN (hypertension), benign UTI (urinary tract infection) GERD (gastroesophageal reflux disease) History of skin cancer Anxiety ICD (implantable cardioverter-defibrillator) in place Cardiomyopathy CHF (congestive heart failure) Surgical History Status post right inguinal hernia repair (05/10/20) H/O excision of mass (05/10/20) S/P cardiac cath H/O colonoscopy yrs ago S/P internal cardiac defibrillator procedure S/P rotator cuff surgery Family History Mother , CA age 58 Cancer Father , CA age 82 Cancer Sister Cancer Denies family history of Anesthesia complication Bleeding disorder Social History Smoking and tobacco/nicotine status: former use of tobacco/nicotine Alcohol intake: never Substance/Drug Use: never Household members: spouse Marital status: Current occupational status: retired Vitals/I&O/Wt Last Vital Signs Temp 98.2 F 04/22/24 04:30 Pulse 83 04/22/24 17:45 Resp 22 H 04/22/24 16:30 BP 109/64 04/22/24 16:30 Pulse Ox 96 04/22/24 16:30 O2 Del Method Nasal Cannula 04/22/24 08:42 O2 Flow Rate 2 04/22/24 08:42 04/22/24 04/22/24 04/22/24 06:59 14:59 22:59 Intake Total 350 / 865.50 336.25 / 336.25 200 / 536.25 Output Total 25 / 625 Balance 325 / 240.50 336.25 / 336.25 200 / 536.25 Weight last 48 hrs Weight 89.584 kg Weight 88.904 kg Physical Exam 2 Narrative: Patient is awake alert no distress HEENT S1-S2 regular rate and rhythm Lungs. , clear per report No pedal edema Urinary Catheter Management: Guillaume: Cath Placed During This Visit: yes Reason for Continuing Indwelling Catheter: Accurate Measurement of Urinary Output in Critically Ill Patients Urinary Catheter Date of Insertion: 04/22/24 Urinary Catheter Time of Insertion: 13:00 Data 04/22/24 05:14 04/22/24 14:44 Micro: Microbiology 04/19/24 02:00 Blood Culture - Preliminary Blood Staphylococcus epidermidis 04/21/24 04:32 Blood Culture - Preliminary Blood NEGATIVE TO DATE 04/21/24 04:28 Blood Culture - Preliminary Blood NEGATIVE TO DATE A&P Assessment and plan (1) Acute renal failure: Plan 1. Acute kidney injury: Baseline creatinine was normal on presentation creatinine is worse now up to 2.5 most likely ATN in the setting of hypotension and IV contrast exposure. -Pressors been off now, started on midodrine and IV albumin.-Patient is hyperkalemic has metabolic acidosis anuric, will continue to monitor renal function closely and if no improvement may require temporary dialysis -IV fluids switched to bicarbonate drip 2. Hyperkalemia: Low K diet and status post Kayexalate, monitor 3. Metabolic acidosis: In the setting of PILO, on bicarbonate drip 4. Hyponatremia, hypovolemic likely, monitor 5. Bilateral pulmonary embolism, status post IVC filter 6. History of right total hip arthroplasty recently and now presented with dislocation-status post reduction, concern for periprosthetic infection and plan for transfer for higher level of care Consult Attestations 2 Medical Necessity Statement: per medicine team Coding Level of Care Code Acute [facility] Diagnoses Acute renal failure N17.9
[2024-04-22] MEDS: atorvastatin 40 mg Tablet PO (20:18)
[2024-04-22] MEDS: meropenem 1,000 mg SDV 1000 MG IVP (20:18)
[2024-04-22 21:18] LABS: Blood Urea Nitrogen 48 mg/dL (8-23); Calcium 8.6 mg/dL (8.5-10.5); Carbon Dioxide 20 mmol/L (22-29); Chloride 97 mmol/L (98-107); Creatinine Clr Calc Pharmacy 21.4106; Glucose 156 mg/dL (65-115); Osmolality Calculated 284 mOsm/kg (285-295); Sodium 129 mmol/L (136-145)
[2024-04-22 21:27] LABS: Anion Gap 17.1 (5-19); Potassium 5.1 mmol/L (3.5-5.1)
[2024-04-23] VITALS (51 sets, daily range): BP systolic 83–134; BP diastolic 52–74; PULSE 66–86; RESP 12–29; TEMP 36.7–37.1; O2SAT 95–100; BMI 33.7
[2024-04-23] MEDS: midodrine 5 mg TABLET 10 MG PO ×3 (02:01→17:00)
[2024-04-23] MEDS: sodium bicarbonate 50 MEQ in sodium chloride 0.45% 1,000 ML 100 MEQ IV ×2 (03:59→20:21)
[2024-04-23] MEDS: pantoprazole 40 mg SDV IVP ×2 (05:08→17:00)
[2024-04-23 05:22] LABS: Basophils % 0.2 %; Eosinophils # 0.2 10^3/uL (0.0-0.8); Eosinophils % 1.2 %; Hematocrit 25.6 % (37-53); Lymphocytes # 1.7 10^3/uL (0.8-4.8); Lymphocytes % 12.7 %; Mean Corpuscular HGB Conc 30.5 g/dL (30-55); Mean Corpuscular Hemoglobin 29.8 pg (27-33); Mean Corpuscular Volume 97.7 fl (82-101); Mean Platelet Volume 9.9 fL (7.4-10.4); Monocytes # 1.2 10^3/uL (0.2-0.9); Monocytes % 8.7 %; Neutrophils # 10.13 10^3/uL (1.8-7.7); Neutrophils % 74.6 %; Nucleated Red Blood Cells % 0 %; Platelet Count 139 10^3/cmm (157-399); Red Blood Count 2.62 10^6/uL (3.85-5.65); Red Cell Distribution Width 14.6 % (12.1-15.1); White Blood Count 13.61 10^3/uL (3.29-11.43)
[2024-04-23 05:46] LABS: Lactate (Lactic Acid level) 1.4 mmol/L (0.5-2.2)
[2024-04-23 05:49] LABS: Alanine Aminotransferase 73 U/L (0-41); Alkaline Phosphatase 89 U/L (40-130); Blood Urea Nitrogen 54 mg/dL (8-23); Calcium 8.8 mg/dL (8.5-10.5); Carbon Dioxide 20 mmol/L (22-29); Chloride 95 mmol/L (98-107); Creatinine Clr Calc Pharmacy 19.6549; Globulin 3.3 g/dL (1.3-4.6); Glucose 137 mg/dL (65-115); Magnesium 1.8 mg/dL (1.7-2.3); Osmolality Calculated 283 mOsm/kg (285-295); Phosphorus 3.4 mg/dL (2.5-4.5); Sodium 128 mmol/L (136-145); Total Bilirubin 0.4 mg/dL (0.15-1.2); Total Protein 6.3 g/dL (6.6-8.7)
[2024-04-23 05:51] LABS: NT Pro B Type Natriuretic Pept 1491 pg/mL (0-450)
[2024-04-23 05:52] LABS: Anion Gap 18.2 (5-19); Aspartate Amino Transferase 68 U/L (0-40); Potassium 5.2 mmol/L (3.5-5.1)
--- NOTE | 2024-04-23 07:00 | XRR_ITS ---
PROCEDURE INFORMATION: Exam: XR Chest Exam date and time: 04/23/2024 7:00 AM Age: 88 years old Clinical indication: Dyspnea; Additional info: SOB TECHNIQUE: Imaging protocol: Radiologic exam of the chest. Views: 1 view. COMPARISON: CR XR chest 1V portable [id number] 04/22/2024 11:23 AM FINDINGS: Tubes, catheters and devices: AICD noted. Atelectasis left lung base right-sided PICC line terminates distal superior vena cava. Lungs: No infiltrate. Pleural spaces: Unremarkable. No pleural effusion. No pneumothorax. Heart/Mediastinum: There is mild cardiomegaly. Bones/joints: Unremarkable. XR/XR chest 1V portable [id number] IMPRESSION: No acute findings.
[2024-04-23] MEDS: meropenem 1,000 mg SDV 1000 MG IVP ×2 (08:24→20:32)
[2024-04-23] MEDS: dutasteride 0.5 mg Capsule PO (08:24)
[2024-04-23] MEDS: sennosides-docusate Tablet 2 TAB PO ×2 (08:24→17:00)
[2024-04-23] MEDS: levothyroxine 88 mcg Tablet PO (08:24)
[2024-04-23] MEDS: tamsulosin 0.4 mg Capsule PO (08:24)
[2024-04-23] MEDS: ferrous sulfate EC 325 mg Tablet PO (08:24)
[2024-04-23] MEDS: amiodarone 200 mg Tablet 400 MG PO (08:24)
--- NOTE | 2024-04-23 08:35 | P.PN_ITS ---
Subjective 2 Subjective: No chest pain Vitals/I&O/Wt Last Vital Signs Temp 98.5 F 04/23/24 04:00 Pulse 70 04/23/24 08:30 Resp 12 04/23/24 08:30 BP 104/56 04/23/24 08:30 Pulse Ox 99 04/23/24 08:30 O2 Del Method Nasal Cannula 04/23/24 04:00 O2 Flow Rate 1.5 04/23/24 04:00 04/22/24 04/23/24 04/23/24 22:59 06:59 14:59 Intake Total 200 / 536.25 1850 / 2386.25 Output Total 100 / 100 Balance 200 / 536.25 1750 / 2286.25 Weight last 48 hrs Weight 209 lb Weight 197 lb 8 oz Physical Exam 2 Narrative: GENERAL: Patient is alert, awake and oriented x3. [] NECK: No jugular vein distension. [] HEENT: No cyanosis. No icterus. No pallor. [] HEART: Regular S1 and S2. No murmur, rub or gallop. [] LUNGS: Clear to auscultate bilaterally. [] CENTRAL NERVOUS SYSTEM: Grossly nonfocal. [] EXTREMITIES: Lower extremities with 1+ edema bilaterally. Urinary Catheter Management: Guillaume: Cath Placed During This Visit: yes Reason for Continuing Indwelling Catheter: Accurate Measurement of Urinary Output in Critically Ill Patients Urinary Catheter Date of Insertion: 04/22/24 Urinary Catheter Time of Insertion: 13:00 Data 04/23/24 04:41 04/23/24 04:41 Micro: Microbiology 04/19/24 02:00 Blood Culture - Preliminary Blood Staphylococcus epidermidis 04/21/24 04:32 Blood Culture - Preliminary Blood NEGATIVE TO DATE 04/21/24 04:28 Blood Culture - Preliminary Blood NEGATIVE TO DATE A&P Assessment and plan (1) Right leg DVT: (2) Bilateral pulmonary embolism: (3) Cardiomyopathy: Qualifiers: Cardiomyopathy type: other Qualified Code(s): I42.8 - Other cardiomyopathies (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 IVC filter in place. No changes from cardiology standpoint. Attestations 2 Medical Necessity Statement*: Care expected to cross 2 midnights. Coding Level of Care Code Acute Code for Chg Fwd Diagnoses Right leg DVT I82.401 Bilateral pulmonary embolism I26.99 Other cardiomyopathy I42.8 Cardiomyopathy type: other ICD (implantable cardioverter-defibrillator) in place Z95.810 Chronic systolic congestive heart failure I50.22 Heart failure type: systolic Heart failure chronicity: chronic GI bleed K92.2 Staphylococcus epidermidis bacteremia R78.81; B95.7 Acute anemia D64.9
--- NOTE | 2024-04-23 09:40 | PC.NURSE ---
Dr. Quintero ordered lasix per JUN but advised to hold until BP sustains above 100 systolic
[2024-04-23] MEDS: morphine 4 mg/mL SDV 1 mL 2 MG IVP (09:45)
[2024-04-23] MEDS: FUROsemide 10 mg/mL SDV 4mL 40 MG IVP (10:11)
--- NOTE | 2024-04-23 12:40 | PC.SOCIAL ---
IMM Updated Updated pt & family on IMM. No questions voiced. Provided pt a copy. Initialed, dated, & timed copy in chart.
--- NOTE | 2024-04-23 14:43 | P.PN_ITS ---
Subjective 2 Subjective: - Patient was seen this morning -He is alert oriented x 3, following all commands, is on room air -Remains normotensive, MAP greater than 65, is off Levophed for over 24 hours -Urine output is about 150 cc, creatinin e up to 2.8, he is tolerating fluids well -We discussed continue to give him fluid therapy possible trial of Lasix therapy, no significant electrolyte abnormalities or respiratory failure, to require dialysis, will continue to monitor renal function -His hemoglobin is 7.8, given his cardio vascular history, will give him 1 unit PRBC -Continue to monitor in ICU closely -With commend at least bedrest for today potentially up to the side of bed later on today based on clinical progress, to avoid hypotension -He has been accepted at [facility] for trans latha, awaiting bed now, discussed with patient, he voices understanding, all questions answered Vitals/I&O/Wt Last Vital Signs Temp 98.5 F 04/23/24 13:37 Pulse 75 04/23/24 13:30 Resp 15 04/23/24 13:30 BP 105/57 04/23/24 13:30 Pulse Ox 98 04/23/24 13:30 O2 Del Method Room Air 04/23/24 10:00 O2 Flow Rate 1.5 04/23/24 04:00 04/22/24 04/23/24 04/23/24 22:59 06:59 14:59 Intake Total 200 / 536.25 1850 / 2386.25 470 / 470 Output Total 100 / 100 Balance 200 / 536.25 1750 / 2286.25 470 / 470 Weight last 48 hrs Weight 94.801 kg Weight 89.584 kg Physical Exam 2 Const: COMMON NORMALS: no acute distress and patient oriented x3 Resp: COMMON NORMALS: normal respiratory effort, No retractions, No use of accessory muscles and clear to auscultation bilaterally AUSCULTATION: clear to auscultation bilaterally Cardio: COMMON NORMALS: regular rate, regular rhythm, S1 normal heart sound present and S2 normal heart sound present RATE: regular rate RHYTHM: r egular rhythm HEART SOUNDS: S1 normal heart sound present and S2 normal heart sound present GI: COMMON NORMALS: Normal to inspection, nondistended, normoactive bowel sounds present and non-tender Extremity: COMMON NORMALS: no pedal edema Neuro: COMMON NORMALS: patient oriented x3 Psych: COMMON NORMALS: mental status grossly normal Urinary Catheter Management: Guillaume: Cath Placed During This Visit: yes Reason for Continuing Indwelling Catheter: Accurate Measurement of Urinary Output in Critically Ill Patients Urinary Catheter Date of Insertion: 04/22/24 Urinary Catheter Time of Insertion: 13:00 Data 04/23/24 04:41 04/23/24 04:41 Micro: Microbiology 04/19/24 02:00 Blood Culture - Preliminary Blood Staphylococcus epidermidis A&P Assessment and plan (1) Bilateral pulmonary embolism: (2) Right leg DVT: (3) Acute anemia: (4) GI bleed: (5) NSTEMI (non-ST elevated myocardial infarction): (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 Monitor Acute renal failure -Likely secondary to hypotensive episode -Creatinine up to 2.8 -Renal ultrasound within normal limits -Urine output improving at 150 cc this morning -Monitor urine output, monitor creatinine -Guillaume catheter in place -Nephrology consulted ? Trial of Lasix therapy Acute hypoxic respiratory failure, resolved patient is on room air ? Secondary to bilateral PEs ? Secondary to pneumonia ? CT/CT angio chest PE protcl [id number] IMPRESSION: 1. Bilateral multifocal pulmonary emboli centered about the segmental pulmonary arteries extending into the subsegmental arteries as detailed above. 2. Nonspecific lung findings which can be seen in acute on chronic bronchitis, small airway disease, air trapping, correlate clinically. # Complicated by acute anemia, concerns for slow GI bleed ? Plan ? Continue vancomycin -continue meropenem ? DuoNeb ? Follow blood cultures ? Monitor respiratory status closely ? Hemoglobin down to 6.9, heparin drip stopped, IVC filter placed, hemoglobin up to 9.4 -Hold off on anticoagulant therapy given persistent anemia Staphylococcus epidermidis bacteremia ? Highly suspicious for prosthetic joint infection, surgical site infection patient 3 weeks out of surgery -2 out of 4 blood cultures positive -Did have right hip hardware in place -Imaging results as below -CRP up to 213, ? With spontaneous right hip dislocation, evidence of periprosthetic loosening ? Makes me very highly concerned for prosthetic joint infection, surgical site infection -For now continue vancomycin -For follow repeat blood cultures # Transfer to [facility] pending as above # Will require IR guided drainage of right hip Right hip replacement -Status post nontraumatic hip displacement -Status post reduction in the emergency room -CT scan as below CT/CT hip RT w con [id number] IMPRESSION: 1. Greater trochanter and iliopsoas bursitis, given rim thickening and enhancement, difficult to exclude periprosthetic infection in the setting of total hip arthroplasty. Differentials include traumatic and hemorrhagic bursitis. 2. Posttraumatic change of the right hip subcutaneous fat with a small crescent of collection adjacent the superficial muscle fascia which could represent Larry Yosvany given the clinical situation. 3. Multiple ill-defined hyperattenuating foci adjacent the prosthesis which likely represents intramuscular and extra muscular hemorrhage. 4. Filling defect within the deep femoral system of the right extremity. 5. Prominent periarticular lucency about the acetabular cup which likely indicates loosening, however difficult to exclude other etiologies of periprosthetic loosening (i.e. infection, particle disease). -Surgical site on examination looks clean and dry, no active drainage or erythema or hematoma -Spoke to Dr. Cheng, [facility] orthopedics about results, recommended medical management, low risk of prosthetic joint infection, recommend continued monitoring if any concerns can call them back -Staph epidermidis bacteremia as above, will monitor, continue vancomycin -Monitor inflammatory markers ? Repeat blood cultures pending # IR guided drainage of right hip Right lower extremity [place] US/[place] [id number] IMPRESSION: 1. Multifocal deep vein thromboses of the right extremity as noted above. 2. Possible partial superficial thrombophlebitis noted of the left saphenous vein. - As above NSTEMI ? Likely secondary to bilateral PEs as above ? Continue heparin drip for now -Cardiac echo CONCLUSIONS Normal left ventricular size and systolic function, EF 55%.no regional wall motion abnormalities. Grade I/IV diastolic dysfunction (abnormal relaxation filling pattern), normal to mildly elevated filling pressures. Catheter/pacemaker wire in the right ventricular cavity. Mildly increased left atrial size. Mild mitral annular calcification. Mild aortic valve stenosis, mean gradient 14.8 mmHg, JUAN 1.6 cm squared. Mild tricuspid valve regurgitation. Estimated pulmonary artery peak systolic pressure 41 mmHg. There is no pericardial effusion. There are no intracardiac masses. Compared to the study from 12/21/2017, there is significant improvement in the LV ejection fraction from 40% to 55% Acute anemia -Status post 1 unit PRBC, now with persistent anemia ? With evidence of early deficiency anemia -Protonix, Carafate -Monitor hemoglobin -Monitor hemoglobin in 4 hours -Hemoglobin 7.8, given NSTEMI, history of cardiomyopathy, will transfuse 1 unit PRBC ? Transfuse 1 unit PRBC -Transfuse if hemoglobin less than 8 Transaminitis, monitor Full code # SCDs for DVT prophylaxis, Plan for today continue sodium bicarb drip, continue IV antibiotics, trial of Lasix therapy, trial of 1 unit PRBC Attestations 2 Medical Necessity Statement*: Patient requires hospitalization for acute renal failure, shock, periprosthetic hip infection Diagnoses Bilateral pulmonary embolism I26.99 Right leg DVT I82.401 Acute anemia D64.9 GI bleed K92.2 NSTEMI (non-ST elevated myocardial infarction) I21.4 Failure of right total hip arthroplasty with dislocation of hip T84.020A Pneumonia J18.9 Acute hypoxic respiratory failure J96.01 Staphylococcus epidermidis bacteremia R78.81; B95.7 Acute renal failure N17.9 Shock R57.9
--- NOTE | 2024-04-23 16:20 | PC.OT ---
OT tx attmpted. Pt receiving blood transfusion and physician recommends bed rest at this time. Pt awaiting bed for transfer to [facility]. OT to check on pt status at later time.
[2024-04-23] MEDS: sucralfate 1 gm/10 mL Oral Liq UDC PO (17:00)
[2024-04-23] MEDS: chlorhexidine gluconate 0.12% Btl 473 mL 30 ML MUCOUS MEM ×2 (17:00→20:38)
--- NOTE | 2024-04-23 18:09 | PC.NURSE ---
updated on bed at [facility], attempted to call report to [facility] 4D but room was not clean
--- NOTE | 2024-04-23 18:50 | PC.PT ---
Physician recommends bedrest today, and plan as for patient to return to [place] tomorrow, for revision of right hip, no further attempts to be made DC PT.
--- NOTE | 2024-04-23 18:50 | PC.NURSE ---
Report called to [facility] for bed 4257-1 to Megha MIDDLETON
[2024-04-23 20:18] LABS: Vancomycin Trough 18.1 ug/mL (10-15)
[2024-04-23] MEDS: atorvastatin 40 mg Tablet PO (20:35)
--- NOTE | 2024-04-23 22:00 | PC.NURSE ---
Pt left w/ EMS crew @2006. notified that pt has left the facility shortly after.
== END 2024-04-23 21:57 | disposition short-term general hospital (02) | DRG 559 ==
LOC: ER 02:56 → ICU 11:15
PROVIDERS: Internal Medicine; Admitting Provider Family Medicine; Emergency Provider Emergency Medicine; PCP Registered Nurse; Visit Provider Family Medicine
PROC: (CPT 37191; principal; 2024-04-20 07:35)
DX: T84.51XA Infection and inflammatory reaction due to internal right hip prosthesis, initial encounter (principal); I26.99 Other pulmonary embolism without acute cor pulmonale; J96.01 Acute respiratory failure with hypoxia; I42.9 Cardiomyopathy, unspecified; I50.22 Chronic systolic (congestive) heart failure; I82.411 Acute embolism and thrombosis of right femoral vein; D62 Acute posthemorrhagic anemia; K92.2 Gastrointestinal hemorrhage, unspecified; I24.89 Other forms of acute ischemic heart disease; R78.81 Bacteremia; R57.9 Shock, unspecified; N17.9 Acute kidney failure, unspecified; E87.20 Acidosis, unspecified; E87.1 Hypo-osmolality and hyponatremia; Y79.2 Prosthetic and other implants, materials and accessory orthopedic devices associated with adverse incidents; T84.020A Dislocation of internal right hip prosthesis, initial encounter; I11.0 Hypertensive heart disease with heart failure; K21.9 Gastro-esophageal reflux disease without esophagitis; F41.9 Anxiety disorder, unspecified; N40.0 Benign prostatic hyperplasia without lower urinary tract symptoms; B95.8 Unspecified staphylococcus as the cause of diseases classified elsewhere; N14.11 Contrast-induced nephropathy; T50.8X5A Adverse effect of diagnostic agents, initial encounter; Y92.239 Unspecified place in hospital as the place of occurrence of the external cause; R74.01 Elevation of levels of liver transaminase levels; E87.5 Hyperkalemia; E86.0 Dehydration; Z95.0 Presence of cardiac pacemaker; Z87.891 Personal history of nicotine dependence
CPT/HCPCS: 36415; 36430; 36573; 36592; 37191; 51702; 51798; 71045; 71275; 73501; 73502; 73701; 76770; 80048; 80053; 80061; 80202; 81001; 82550; 82728; 83036; 83540; 83550; 83605; 83735; 83880; 84100; 84145; 84443; 84484; 85007; 85014; 85018; 85025; 85027; 85378; 85610; 85651; 85730; 86140; 86850; 86900; 86920; 87040; 87077; 87150; 87186; 87205; 87637; 93005; 93306; 93970; 94664; 96365; 96367; 96375; 96376; 97110; 97161; 97166; 97530; 99152; 99285; C1751; C1769; C1880; C1887; C1894; J1644; J1940; J2185; J2250; J2270; J2405; J2470; J3010; J3370; J3490; J7030; J7050; P9016; P9046; Q9967

== ENCOUNTER → 2024-07-21 10:15 | Outpatient (BNVA) | payer MEDICARE, SELFPAY | PROVIDERS: PCP Registered Nurse; Visit Provider Internal Medicine | DX: Z45.02 Encounter for adjustment and management of automatic implantable cardiac defibrillator (principal) | CPT/HCPCS: 93295; 93296 ==

== ENCOUNTER 2024-10-22 22:11 | Emergency (ER) | payer MEDICAID, SELFPAY ==
--- NOTE | 2024-10-22 22:16 | USR_ITS ---
PROCEDURE INFORMATION: Exam: US Duplex Left Lower Extremity Veins, Limited Exam date and time: 10/22/2024 10:40 PM Age: 89 years old Clinical indication: Pain; Leg, lower; Left; Additional info: Sent for possible dvt TECHNIQUE: Imaging protocol: Real-time duplex ultrasound of the left extremity with 2-D dunbar scale, color Doppler flow and spectral waveform analysis including responses to compression and other maneuvers (when performed) with image documentation. Limited exam focused on the left lower extremity veins. COMPARISON: US renal BI* [id number] 04/22/2024 1:55 PM FINDINGS: Left deep veins: There is DVT from the common femoral vein through the femoral and popliteal vein to the tibioperoneal trunk. Superficial veins: Greater saphenous vein at the saphenofemoral junction is patent without thrombus. Soft tissues: Unremarkable. US/[place] [id number] IMPRESSION: Positive for extensive DVT from the common femoral vein to the tibioperoneal trunk.
[2024-10-22 22:20] VITALS: BP 128/71; PULSE 94; RESP 18; TEMP 37.2; O2SAT 93; BMI 25.8
--- OUTSIDE RECORDS SUMMARY | 2024-10-22 22:35 | XMS_ITS | Encounter Summary ---
Author Organization [facility] Address [address] [place] [address] Care Team Providers Care Insulation Supervisor Name Role Phone Geraldine Ayala MD Primary Care Provider [phone] Encounter Details Date Type Department Care Team (Latest Contact Info) Description 08/25/1998 Outpatient Historical [facility] [place] [address] [phone] Michele Valerio DO NO ADDRESS ON FILE Backache, unspecified (Primary Dx) Social History Tobacco Use Types Packs/Day Years Used Date Smoking Tobacco: Never Assessed Sex and Gender Information Value Date Recorded Sex Assigned at Not on file Legal Sex Male 2:59 AM [employer] Gender Identity Not on file Sexual Orientation Not on file documented as of this encounter Plan of Treatment Not on file documented as of this encounter Visit Diagnoses Diagnosis Backache, unspecified- Primary documented in this encounter Care Teams Insulation Supervisor Relationship Specialty Start Date End Date Geraldine Ayala MD [address] [phone] PCP - General Family Practice 01/30/15 documented as of this encounter
--- OUTSIDE RECORDS SUMMARY | 2024-10-22 22:35 | XMS_ITS | Data Portability ---
Author Organization [facility], [place], [facility] Address [address] [place] [phone] Assessment No assessment recorded. Plan of Treatment Reminders Order Date Submit Date Provider Last Modified By Organization Details Last Modified Time Details Appointments None record ed. Lab None record ed. Referral None record ed. Procedures None record ed. Surgeries None record ed. Imaging None record ed. Medication Orders None record ed. Patient TargetsNo targets recorded. Patient Instructions Encounter Date Encounter Id Patient Instructions Last Modified By Organization Details Last Modified Time 06/30/2024 [id number] Patient frustrat ed that not gaining strength. Discussed poor prognosis. Skin wounds worsening and expected with continued decline in condition. Not available 06/30/2024 15:00:12 07/28/2024 [id number] pain untcontroll ed even with recent increase in fentanyl. Will increase patch to 125mcg. [email or web address] Not available 07/28/2024 14:12:25 08/04/2024 [id number] Pain uncontrolle d with increased fentanyl, will d/c and start hydrocodone 10/325 1 tab every 4 hours prn. [email or web address] Not available 08/04/2024 15:08:05 09/01/2024 [id number] refusing zoloft, will stop. Pain mostly controlled. Doing well. [email or web address] Not available 09/01/2024 14:02:59 10/13/2024 [id number] doing well, no complaints. No new orders. [email or web address] Not available 10/13/2024 17:19:42 Reason for Referral None Reported. Problems Name Problem SNOMED Code Status Onset Date Resolution Date Notes Provider Name and Address Organization Details Recorded Time Fracture of neck of femur 3066213 [facility] 14:[facility] Hyponatrem ia 81742586 [facility] 14:21:35 Atrial fibrillati on 69986252 Active 2023 ALTON goodman, [facility] 4 14:21:48 Benign prostatic hyperplasi a 180798189 Active 2023 ALTON DUNCAN [facility] 4 14:22:07 Gastroesop hageal reflux disease without esophagiti s 569027218 [facility] 14:22:14 Hospital inpatient stay within past 30 days 7808436200124 [facility] 5 12:08:30 Acute cor pulmonale 59760542 Active 2024 ALTON DUNCAN [facility] 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 5 12:10:30 Acute gastrointe stinal hemorrhage 77575876 Active 2024 ALTON DUNCAN [facility] 5 12:10:38 Chronic pain 50139210 [facility] 5 10:08:11 Problem Notes None recorded. Medical Equipment None Reported. Allergies Allergen ID Allergen Name Allergen Category Reaction Reaction Severity Criticality Documentation Date Start Date Code Code System Note Provider Name and Address Organization Details Recorded Time 70503 Product containin g penicilli n (product) medicatio n hives Not available Not available 11/23/2022 09814 8001 SNOMED React ion: Hives ; Comme nt: Recor ded 05/21 11:22 AM by Katya lira LPN, Bennie Nair ry; Rachael king; Juan A harris ce: *; ; Not Available [facility] 3 02:26:39 Medications Name Sig Start Date Stop Date Status Note LastModified by Organization Details LastModified Time Stool Softener 100 mg capsule daily active 0; Recorded 05/21/19 11 11:24AM by Katya Miller LPN, [facility] Summary; Not Available Not Available Not Available azithromy hillary 250 mg tablet TAKE 2 TABLETS BY MOUTH ON DAY 1, AND THEN TAKE 1 TABLET BY MOUTH ONCE A DAY ON DAY 2 THROUGH DAY 5 active Not Available Not Available No t Available amiodaron e 200 mg tablet TAKE 2 TABLETS BY MOUTH ONCE DAILY active Not Available Not Available No t Available hydrocodo ne 5 mg-acetam inophen 325 mg tablet Take 1 tablet every 6 hours by oral route as needed. 08/06 completed Not Available Not Available Not Available fluoroura cil 5 % topical cream APPLY TWO TIMES DAILY TO AFFECTED AREAS ON SCALP, TEMPLES, FOREARMS , AND EARS FOR TWO WEEKS ALTERNAT ING SITES active Not Available Not Available No t Available zinc gluconate 10 mg tablet daily active Not Available Not Available Not Available clindamyc in HCl 150 mg capsule TAKE 1 CAPSULE BY MOUTH THREE TIMES DAILY UNTIL GONE active Not Available Not Available No t Available penicilli n V potassium 500 mg tablet TAKE 1 TABLET BY MOUTH 4 TIMES DAILY UNTIL GONE active Not Available Not Available No t Available hydrocodo ne 10 mg-acetam inophen 325 mg tablet Take 1 tablet twice a day by oral route as needed for 30 days. 2024 active Not Available Not Available Not Avai lable potassium chloride 20 mEq/15 mL oral liquid TAKE 7.5 ML BY MOUTH ONCE DAILY active Not Available Not Available No t Available terbinafi ne HCl 250 mg tablet TAKE 1 TABLET BY MOUTH ONCE DAILY active Not Available Not Available No t Available levothyro xine 88 mcg tablet TAKE 1 TABLET BY MOUTH ONCE DAILY IN THE MORNING active Not Available Not Available No t Available fentanyl 100 mcg/hr transderm al patch Apply 1 patch every 72 hours by transder mal route for 30 days. 2024 active Not Available Not Available Not Avai lable tamsulosi n 0.4 mg capsule TAKE 1 CAPSULE BY MOUTH ONCE DAILY active Not Available Not Available No t Available clotrimaz ole-betam ethasone 1 %-0.05 % topical cream APPLY CREAM TOPICALL Y TO AFFECTED AREA TWICE DAILY active Not Available Not Available No t Available monteluka st 10 mg tablet TAKE 1 TABLET BY MOUTH ONCE DAILY AT BEDTIME active Not Available Not Available No t Available furosemid e 20 mg tablet TAKE 1 TABLET BY MOUTH ONCE DAILY active Not Available Not Available No t Available gabapenti n 100 mg capsule TAKE 2 CAPSULES BY MOUTH TWICE DAILY active Not Available Not Available No t Available fentanyl 25 mcg/hr transderm al patch Apply 1 patch every 72 hours by transder mal route for 30 days. 2024 active Not Available Not Available Not Avai lable hydroxyzi ne HCl 10 mg tablet TAKE 1 TABLET BY MOUTH THREE TIMES DAILY NEEDED FOR ITCHING active Not Available Not Available No t Available fentanyl 75 mcg/hr transderm al patch Apply 1 patch every 72 hours by transder mal route for 30 days. 08/06 completed Not Available Not Available Not Available amoxicill in 875 mg-potass ium clavulana te 125 mg tablet TAKE 1 TABLET BY MOUTH EVERY 12 HOURS FOR 10 DAYS active Not Available Not Available No t Available dutasteri de 0.5 mg capsule TAKE 1 CAPSULE BY MOUTH ONCE DAILY active Not Available Not Available No t Available rosuvasta tin 20 mg tablet TAKE 1 TABLET BY MOUTH ONCE DAILY AT BEDTIME active Not Available Not Available No t Available calcium daily active 0; Recorded 05/21/19 11 11:24AM by Katya Miller LPN, [facility] Summary; Not Available Not Available Not Available budesonid e-formote rol HFA 160 mcg-4.5 mcg/actua tion aerosol inhaler INHALE 2 PUFFS BY MOUTH TWICE DAILY active Not Available Not Available No t Available FeroSul 325 mg (65 mg iron) tablet TAKE 1 TABLET BY MOUTH ONCE DAILY active Not Available Not Available No t Available Vitals Date Recorded Body weight Heart rate Respiratory rate Body temperature Oxygen saturation Oxygen saturation in Arterial blood by Pulse oximetry Systolic blood pressure Diastolic blood pressure Provider Name and Address Organization Details Last Updated DateTime 5 13055.9 2 g 61 /min 16 /min 98 [degF] 94 % 94 % 110 mm[Hg] 64 mm[Hg] [facility] 5 12:42:54 Date Recorded Body weight Heart rate Respiratory rate Body temperature Oxygen saturation Oxygen saturation in Arterial blood by Pulse oximetry Systolic blood pressure Diastolic blood pressure Provider Name and Address Organization Details Last Updated DateTime 5 12506.6 6 g 98.4 /min 20 /min 98.4 [degF] 95 % 95 % 126 mm[Hg] 82 mm[Hg] [facility] 5 14:10:45 Date Recorded Body weight Heart rate Respiratory rate Body temperature Oxygen saturation Oxygen saturation in Arterial blood by Pulse oximetry Systolic blood pressure Diastolic blood pressure Provider Name and Address Organization Details Last Updated DateTime 5 81797.6 6 g 78 /min 20 /min 98.38 [degF] 95 % 95 % 126 mm[Hg] 82 mm[Hg] [facility] 5 15:04:10 Date Recorded Body weight Heart rate Respiratory rate Body temperature Oxygen saturation Oxygen saturation in Arterial blood by Pulse oximetry Systolic blood pressure Diastolic blood pressure Provider Name and Address Organization Details Last Updated DateTime 5 05165.8 8 g 98 /min 20 /min 98.2 [degF] 94 % 94 % 138 mm[Hg] 82 mm[Hg] [facility] 5 14:01:26 Date Recorded Body weight Heart rate Respiratory rate Body temperature Oxygen saturation Oxygen saturation in Arterial blood by Pulse oximetry Systolic blood pressure Diastolic blood pressure Provider Name and Address Organization Details Last Updated DateTime 5 03410.4 1 g 75 /min 20 /min 98 [degF] 98 % 98 % 148 mm[Hg] 67.99 mm[Hg] [facility] 5 17:17:09 Social History None recorded. Functional Status None recorded. Mental Status None recorded. Family History Nothing Reported. Medical History No medical history recorded. Immunizations Vaccine Type Date Status Note Provider Nam e and Address Organization Details Recorded Time Influenza, split virus, quadrivalent, PF 03/04/2014 completed Not Available [facility] 5 08:57:25 Tdap 03/04/2014 completed Not Available [facility] 10/13/2024 08:57:25 Influenza, high-dose, trivalent, PF 04/01/2018 completed Not Available [facility] 2024 08:57:25 Influenza, high-dose, trivalent, PF 03/14/2020 completed Not Available [facility] 2024 08:57:25 COVID-19, mRNA, LNP-S, PF, 100 mcg/0.5mL dose or 50 mcg/0.25mL dose 06/12/2020 completed Not Available [facility] 5 08:57:25 COVID-19, mRNA, LNP-S, PF, 100 mcg/0.5mL dose or 50 mcg/0.25mL dose 07/10/2020 completed Not Available [facility] 5 08:57:25 Tdap 08/23/2020 completed Not Available [facility] 10/13/2024 08:57:25 COVID-19, mRNA, LNP-S, PF, 100 mcg/0.5mL dose or 50 mcg/0.25mL dose 02/19/2021 completed Not Available [facility] 5 08:57:25 Influenza, high-dose, quadrivalent, PF 01/01/2023 completed Not Available [facility] 5 08:57:25 Influenza, high-dose, trivalent, PF 02/21/2024 completed Not Available [facility] 2024 08:57:25 Past Encounters Encounter ID Performer Location Encounter Start Date Encounter Closed Date Diagnosis/Indication Diagnosis SNOMED-CT Code Diagnosis ICD10 Code Diagnosis Note [id number] Nigel Rasmussen DO [facility] ([facility]) [address] [place] [phone] 5 04/06/2024 08:32:47 04/12/2024 09:58:13 Hospital inpatient stay within past 30 days 1455972599 106 Z76.89 Fracture o f neck of femur 7498446 S72.001S Hyponatremia 19855861 E8 7.1 Atrial fibrillation 4943 6004 I48.91 Benign pro static hyperplasia 807568038 N40.0 Gastroesop hageal reflux disease without esophagitis 134612022 K21.9 [id number] Nigel Rasmussen DO [facility] ([facility]) [address] [place] [address] 5 04/14/2024 14:54:08 04/16/2024 16:47:29 Gastroesophageal reflux disease without esophagitis 038510465 K21.9 Atrial fibrillation 4943 6004 I48.91 Fracture o f neck of femur 0017801 S72.001S [id number] Nigel Rasmussen DO [facility] ([facility]) [address] [place] [phone] 5 05/19/2024 08:08:50 05/24/2024 14:16:29 Hospital inpatient stay within past 30 days 4960996607 106 Z76.89 Acute cor pulmonale 4958 4005 I26.09 Adenocarci noma of stomach 292776568 C16.9 Acute gastrointestinal hemorrhage 83917717 K92.2 Atrial fibrillation 4943 6004 I48.91 Benign pro static hyperplasia 513022388 N40.0 Gastroesop hageal reflux disease without esophagitis 531766434 K21.9 Fracture o f neck of femur 5053293 S72.001S [id number] Nigel Rasmussen DO [facility] ([facility]) [address] [place] [phone] 5 05/26/2024 08:14:58 05/29/2024 06:31:56 Gastroesophageal reflux disease without esophagitis 905448150 K21.9 Benign pro static hyperplasia 168648051 N40.0 Adenocarci noma of stomach 849070023 C16.9 [id number] Nigel Rasmussen DO [facility] ([facility]) [address] [place] [phone] 5 06/02/2024 12:34:18 06/15/2024 08:01:34 Adenocarcinoma of stomach 254833246 C16.9 Atrial fibrillation 4943 6004 I48.91 [id number] Nigel Rasmussen DO [facility] ([facility]) [address] [place] [id number] 5 06/30/2024 08:10:37 07/01/2024 14:42:17 Adenocarcinoma of stomach 910570709 C16.9 Atrial fibrillation 4943 6004 I48.91 Chronic pain 40605831 G8 9.29 [id number] Nigel Ramsussen [facility] ([facility]) [address] [place] [phone] 5 07/28/2024 08:14:29 07/29/2024 06:44:43 Benign prostatic hyperplasia 932758921 N40.0 Adenocarci noma of stomach 268258998 C16.9 Atrial fibrillation 4943 6004 I48.91 [id number] Nigel Rasmussen [facility] ([facility]) [address] [place] [id number] 5 08/04/2024 07:50:19 08/08/2024 22:26:10 Adenocarcinoma of stomach 150577059 C16.9 Chronic pain 50930986 G8 9.29 [id number] Nigel Rasmussen [facility] ([facility]) [address] [place] [phone] 09/01/2024 08:09:14 09/06/2024 16:43:25 Chronic pain 56438517 G89.29 Atrial fibrillation 4943 6004 I48.91 Adenocarci noma of stomach 128252400 C16.9 [id number] Nigel Rasmussen [facility]) [address] [place] [phone] 5 10/13/2024 08:57:08 10/19/2024 12:48:38 Gastroesophageal reflux disease without esophagitis 863643861 K21.9 Adenocarci noma of stomach 573103959 C16.9 Atrial fibrillation 4943 6004 I48.91 Health Concerns Section Related Observation LastModified by Organization Detai ls LastModified Time None Recorded Concern Status LastModified by Organization Details LastModified Time None Recorded Advance Directives Directive None Recorded Payers Insurance Date Sequence Insurance Name Policy Number Policy Jimenez Covered Member ID Jimenez Member ID Guarantor Name 05/18/2024 1 [id number]/ [place]ANTAGE - [place]PO) [id number] James Tuckerwin [id number] James Miguelina TuckerVillasenor 10/19/2024 1 [employer] (MEDICARE REPLACEMENT/ ADVANTAGE - PPO) [id number] James Tuckerwin [id number] James Miguelina Villasenor Notes Date Note Type Note Provider Name and Address Organization Details Recorded Time 5 text/html Care Management - Atrial FibrillationReported bypatient.Prognosis:expec fernando outcome: no change Duration:greater than 12 months (chronic) Medications:compliant with medication Nigel Rasmussen DO [address] [place] [address], [phone], [facility] 06/30/2024 15:00:27 5 text/html Care Management - Atrial FibrillationReported bypatient.Prognosis:expec fernando outcome: no change Duration:greater than 12 months (chronic) Medications:compliant with medication Nigel Majanogwen [address] [place] [address], [phone], [facility] 07/28/2024 15:45:04 5 text/html Care Management - Atrial FibrillationReported bypatient.Prognosis:expec fernando outcome: no change Duration:greater than 12 months (chronic) Medications:compliant with medication Nigel Rasmussen DO [address] [place] [address], [phone], [facility] 08/08/2024 15:06:48 5 text/html Care Management - Atrial FibrillationReported bypatient.Prognosis:expec fernando outcome: no change Duration:greater than 12 months (chronic) Medications:compliant with medication Nigel Rasmussen DO [address] [place] [address], [phone], [facility] 09/03/2024 17:05:10 5 text/html Care Management - Atrial FibrillationReported bypatient.Prognosis:expec fernando outcome: no change Duration:greater than 12 months (chronic) Medications:compliant with medication no complaints per staff or pt. Nigel Rasmussen, DO [address] [place], [phone], [facility] 10/18/2024 15:01:48
--- OUTSIDE RECORDS SUMMARY | 2024-10-22 22:35 | XMS_ITS | Encounter Summary ---
Author Organization [facility] Address [address] [place] [address] Care Team Providers Care Hospital Account Liaison Name Role Phone Geraldine Ayala MD Primary Care Provider Encounter Details Date Type Department Care Team (Latest Contact Info) Description 03/26/1999 Outpatient Historical 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
--- OUTSIDE RECORDS SUMMARY | 2024-10-22 22:35 | XMS_ITS | Encounter Summary ---
Author Organization [facility] Address [address] [place] [address] Care Team Providers Care Soil Science Technical Officer Name Role Phone Geraldine Ayala MD Primary Care Provider Encounter Details Date Type Department Care Team (Latest Contact Info) Description 07/26/1998 Outpatient Historical [facility] [place] [address] [phone] Michele Valerio DO NO ADDRESS ON FILE Chest pain, unspecified (Primary Dx) Social History Tobacco Use Types Packs/Day Years Used Date Smoking Tobacco: Never Assessed Sex and Gender Information Value Date Recorded Sex Assigned at Not on file 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
--- OUTSIDE RECORDS SUMMARY | 2024-10-22 22:35 | XMS_ITS | Encounter Summary ---
Author Organization [facility] Address [address] [place] [address] Care Team Providers Care Air Marshal Name Role Phone Geraldine Ayala MD Primary Care Provider [phone] Reason for Referral * Outpatient Services (Routine) - Closed Specialty Diagnoses / Procedures Referred By Sabino tom Referred To Contact Radiology Diagnoses Chest x-ray abnormality Procedures CT CHEST WO CONTRAST Mikhail Garcia MD NO ADDRESS ON FILE [facility] CT Scan [place] [address] [facility] [address] [place] [address] Phone: tel: fax: Referral ID Status Reason Start Date Expiration Date Visits Re quested Visits Authorized [id number] Closed 06/22/2012 07/23/2013 1 1 GE ENTRY Encounter Details Date Type Department Care Team (Late st Contact Info) Description 06/22/2012 Ancillary Orders [facility] Medicine [place] [address] [facility] [address] [place] [id number] Mikhail Garcia MD NO ADDRESS ON FILE Chest x-ray abnormality (Primary Dx) Social History Tobacco Use Types Packs/Day Years Used Date Smoking Tobacco: Former Cigarettes 0.3 40 1 05/11/1971 - 03/11/2012 Smokeless Tobacco: Never Comments:smokes 1/2 pack per week Alcohol Use Standard Drinks/Week Comments No 0 (1 standard drink = 0.6 oz pur e alcohol) Sex and Gender Information Value Date Recorded Sex Assigned at Not on file Legal Sex Male 2:59 AM CHARGE ENTRY Gender Identity Not on file Sexual Orientation Not on file Occupation Industry Job Start Date Job End Date Not on file Not on file Not on file Not on file documented as of this encounter Plan of Treatment Not on file documented as of this encounter Results * CT CHEST WO CONTRAST (06/22/2012 9:36 AM CHARGE ENTRY) Anatomical Region Laterality Modality Chest Computed Tomogra phy 06/22/2012 9:22 AM CHARGE ENTRY Narrative 06/22/2012 11:16 AM CHARGE ENTRY PROCEDURE CHEST CT, IV noncontrast 22 June 2012 TECHNIQUE Noncontrast helical axial CT was obtained from the base of the neck into the abdomen and imaged at 5 mm increments for 68 axial images. Sagittal and coronal reconstructions are also obtained. DESCRIPTION On lung window imaging the lungs appear clear. No infiltrate or atelectasis is seen. No pleural effusion is seen. There are several small noncalcified pulmonary nodules identified. ? 5.1 mm right upper lobe anterior image 36 series three ? 4.4 mm right lower lobe image 44 series three ? 7.5 mm right lower lobe costophrenic angle image 50 series three Mediastinal windows settings shows no mediastinal mass or adenopathy. Several small calcified pretracheal lymph nodes are noted. No hilar adenopathy is seen on noncontrast evaluation. The chest wall appears intact without axillary adenopathy. Tracheobronchial tree and thyroid appear unremarkable. There is mild aortic atherosclerosis evidence of aneurysm. The partially visualized liver, gallbladder, and pancreas appear unremarkable. The adrenal glands and visualized portions of the upper poles the kidneys appear unremarkable. The stomach is nondistended. There is some radiopacity in the region of the descending duodenum probably representing radiopaque medication. There is moderate fecal artifact in the colon. There is extensive osteophyte of the mid and lower dorsal spine levels, more pronounced anteriorly and to the right. There is some osteophyte mild prominence of the first rib articulation with the sternum which protrudes slightly into the pulmonary apex and could suggest a nodule on chest x-ray -- clinical correlation is suggested. No other apical pulmonary mass or nodule is identified. IMPRESSION 1. no acute changes of the chest seen 2. no pulmonary or mediastinal masses or adenopathy seen 3. indeterminate pulmonary nodules in the right lung base -- suggest six month recheck COMMENT The previous abnormal chest radiograph is not currently available for comparison. Comparison statement can be provided if the image becomes available. Procedure Note Cedrick Castañeda MD - 06/22/[address], IV noncontrast 22 June 2012 TECHNIQUE Noncontrast helical axial CT was obtained from the base of the neck into the abdomen and imaged at 5 mm increments for 68 axial images. Sagittal and coronal reconstructions are also obtained. DESCRIPTION On lung window imaging the lungs appear clear. No infiltrate or atelectasis is seen. No pleural effusion is seen. There are several small noncalcified pulmonary nodules identified. ? 5.1 mm right upper lobe anterior image 36 series three ? 4.4 mm right lower lobe image 44 series three ? 7.5 mm right lower lobe costophrenic angle image 50 series three Mediastinal windows settings shows no mediastinal mass or adenopathy. Several small calcified pretracheal lymph nodes are noted. No hilar adenopathy is seen on noncontrast evaluation. The chest wall appears intact without axillary adenopathy. Tracheobronchial tree and thyroid appear unremarkable. There is mild aortic atherosclerosis evidence of aneurysm. The partially visualized liver, gallbladder, and pancreas appear unremarkable. The adrenal glands and visualized portions of the upper poles the kidneys appear unremarkable. The stomach is nondistended. There is some radiopacity in the region of the descending duodenum probably representing radiopaque medication. There is moderate fecal artifact in the colon. There is extensive osteophyte of the mid and lower dorsal spine levels, more pronounced anteriorly and to the right. There is some osteophyte mild prominence of the first rib articulation with the sternum which protrudes slightly into the pulmonary apex and could suggest a nodule on chest x-ray -- clinical correlation is suggested. No other apical pulmonary mass or nodule is identified. IMPRESSION 1. no acute changes of the chest seen 2. no pulmonary or mediastinal masses or adenopathy seen 3. indeterminate pulmonary nodules in the right lung base -- suggest six month recheck COMMENT The previous abnormal chest radiograph is not currently available for comparison. Comparison statement can be provided if the image becomes available. Mikhail Garcia MD CT ORDERABLES Final Resu lt documented in this encounter Visit Diagnoses Diagnosis Chest x-ray abnormality Other nonspecific abnormal finding of lung field Chest x-ray abnormality- Primary Other nonspecific abnormal finding of lung field documented in this encounter Care Teams Air Marshal Relationship Specialty Start Date End Date Geraldine Ayala MD [address] [id number] PCP - General Family Practice 01/30/15 documented as of this encounter
--- OUTSIDE RECORDS SUMMARY | 2024-10-22 22:35 | XMS_ITS ---
Author Organization [facility] Care Team Providers Care Roof Bolter Name Role Phone Nigel Rasmussen Unavailable Unavailable Briana Root Unavailable Unavailable Ck Gallardo Unavailable Unavailable Allergies and adverse reactions Code CodeSystem Substance Reaction Severity StartDate Concern Status 454213862 SNOMED CT Sulfa Antibiotics Unknown 04/02/2024 active Care Team Name Role Address Phone Organization Dates Nigel Rasmussen PCP [address], [place], [address], [place] (Office): [facility] 05/13/2024 - present Briana Root [address] , [place], [address], [place] (Office): : [facility] 05/13/2024 - present Ck Gallardo [address] [place] [address] [address], [place], [address], [place] (Office): [facility] 05/13/2024 - present Goals Section Goals Description Status Target Date All goals will be reviewed a nd updated as needed with completion of the assessment process of the ACEVES unless otherwise stated in the individualized goal Active 01/13/2025 Enhanced Barrier Precautions will be utilized pe r protocol daily Active 01/13/2025 Gene will demonstrate the ap propriate use of adaptive device(s) to increase ability in self-care through the review date. Active 01/13/2025 Gene will improve current le sowmya of function in self-care through the review date. Active 01/13/2025 Resident Will Report Satisfactory Pain Control A ctive 01/13/2025 Resident will not have adver se effects r/t usage of medications with Black Box Warnings. Active 01/13/2025 The resident will be able to verbalize/communicate required assistance post-discharge and the services required to meet needs before discharge Active 01/13/2025 The resident will be free fr om discomfort or adverse reactions related to antidepressant therapy through the review date. Active 01/13/2025 The resident will be free of falls through the r eview date. Active 01/13/2025 The resident will be free of minor injury throug h the review date. Active 01/13/2025 The resident will be free of symptoms of dehydration and maintain moist mucous membranes, good skin turgor. Active 01/13/2025 The resident will demonstrat e correct administration of medications/treatments Active 01/13/2025 The resident will have intac t skin, free of redness, blisters or discoloration by/through review date. Active 01/13/2025 The resident will maintain a dequate nutritional status as evidenced by maintaining weight, no s/sx of malnutrition, and consuming at least 75% of at least 3 meals daily through review date. Active 01/13/2025 The resident will not develo p complications related to obesity, including skin breakdown, ineffective breathing pattern, altered cardiac output, diabetes, impaired mobility through review date. Active 01/13/2025 The resident will not have a n interruption in normal activities due to pain through the review date. Active 01/13/2025 The resident will not have d iscomfort related to side effects of analgesia through the review date. Active 01/13/2025 The resident will not sustai n serious injury through the review date. Active 01/13/2025 The resident will verbalize adequate relief of pain or ability to cope with incompletely relieved pain through the review date. Active 01/13/2025 The resident will verbalize/ communicate an understanding of the discharge plan and describe the desired outcome by the review date. Active 01/13/2025 Functional Status Code Name Recorded Time Value Entered By Ambulation 10/22/2024 Not assessed samwade Ambulation 10/22/2024 Not assessed samwade Ambulation 10/22/2024 Not assessed samwade Ambulation 10/22/2024 Not assessed samwade Dressing 10/22/2024 Extensive Assistance samwade Feeding or Eating 10/22/2024 Supervision samwade Toileting 10/22/2024 Total Dependence samwade Transferring 10/22/2024 Total Dependence samwade Immunizations Immunization Status Vaccine Details Vaccine Code CodeSystem Date Notes TB 1 Step Mantoux (PPD) completed tuberculin skin test; unspecified formulation lotNumber: [id number] expiry: 05/29/2025 Given 0.1 ml Left Forearm intradermally 98 CVX created date: 04/18/2024 consent date: 04/17/2024 administer ed date: 04/18/2024 TB 2 Step Mantoux Skin Test completed tuberculin skin test; unspecified formulation lotNumber: [id number] expiry: 05/23/2025 Given 0.1 ml Right Forearm subcutaneously Step 2 of Multi-step with next step required 98 CVX created date: 04/12/2024 consent date: 04/03/2024 administer ed date: 04/03/2024 TB 2 Step Mantoux Skin Test completed tuberculin skin test; unspecified formulation expiry: 05/30/2025 Given 0.1 ml Left Forearm intradermally Step 1 of Multi-step with next step required 98 CVX created date: 04/05/2024 consent date: 04/03/2024 administer ed date: 04/03/2024 Educated by on 04/12/2024 SARS-COV-2 (COVID-19) completed Step 2 of Multi-step created date: 05/13/2024 SARS-COV-2 (COVID-19) completed Step 1 of Multi-step with next step required created date: 05/13/2024 administer ed date: 02/19/2021 SARS - COV2 (Moderna) Booster completed SARS-COV-2 (COVID-19) vaccine, mRNA, spike protein, LNP, preservative free, 100 mcg/0.5mL dose or 50 mcg/0.25mL dose 207 CVX created date: 04/02/2024 administer ed date: 02/19/2021 SARS - COV2 (Moderna) Booster completed SARS-COV-2 (COVID-19) vaccine, mRNA, spike protein, LNP, preservative free, 100 mcg/0.5mL dose or 50 mcg/0.25mL dose Mfg: Spikevax 207 CVX created date: 04/02/2024 administer ed date: 07/10/2020 SARS - COV2 (Moderna) Booster completed SARS-COV-2 (COVID-19) vaccine, mRNA, spike protein, LNP, preservative free, 100 mcg/0.5mL dose or 50 mcg/0.25mL dose Mfg: Spikevax 207 CVX created date: 04/02/2024 administer ed date: 06/12/2020 influenza, injectable, quadrivalent completed Influenza, split virus, quadrivalent, injectable, contains preservative 158 CVX created date: 05/13/2024 administer ed date: 02/13/2024 Pneumococcal conjugate PCV 13 completed pneumococcal conjugate vaccine, 13 valent 133 CVX created date: 05/13/2024 administer ed date: 03/17/2008 Medications Section Medication Name Status Code CodeSystem Dose Route Frequency Admin Type Sig Text Start Date End Date MiraLax Oral Powder 17 GM/SCOOP active 489282 RXNORM 1 scoop Oral as needed PRN Give 1 scoop by mouth every 24 hours as needed for Consti pation dissol ve in 4-8oz of liquid 2023 - Magnesium Citrate Oral Solution active 5612536 RXNORM 296 ml Oral as needed PRN Give 296 ml by mouth every 24 hours as needed for Consti pation 2024 - Fleet Enema Enema 7-19 GM/118ML active 154569 RXNORM 1 applic ation Rectal as needed PRN Insert 1 applic ation rectal ly every 24 hours as needed for consti pation 2024 - Bisacodyl Suppository 10 MG active 907435 RXNORM 1 suppos itory Rectal as needed PRN Insert 1 suppos itory rectal ly every 24 hours as needed for Consti pation 2024 - Milk of Magnesia Suspension 400 MG/5ML active 580520 RXNORM 30 ml Oral as needed PRN Give 30 ml by mouth every 24 hours as needed for consti pation dissol ve in 4-8oun ifrah of liquid 2024 - Triad Hydrophilic Wound Dress External Paste active n/a n/a Topical as needed PRN Apply to affect ed area topica lly every 12 hours as needed for wound care 2024 - Tylenol Extra Strength Oral Tablet active 500 mg Oral as needed PRN Give 500 mg by mouth every 6 hours as needed for Pain relate d to MALIGN ANT NEOPLA SM OF STOMAC H, UNSPEC IFIED (C16.9 ) give in levyweshereen n schedu led pain meds for break throug h pain contro l 2024 - Ondansetron HCl Tablet 8 MG active 215474 RXNORM 8 mg Oral as needed PRN Give 8 mg by mouth every 6 hours as needed for Nausea and Vomiti ng 2024 - fentaNYL Transdermal Patch 72 Hour 25 MCG/HR active 112404 RXNORM 1 patch Transde rmal one time a day Routine Apply 1 patch transd ermall y one time a day every 3 day(s) relate d to CENTRI LOBULA R EMPHYS BINU (J43.2 ) and remove per schedu le 2024 - FentaNYL Patch 72 Hour 100 MCG/HR active 538323 RXNORM 1 patch Transde rmal every 72 hours Routine Apply 1 patch transd ermall y every 72 hours for pain Rotate Site give with the 25mcg patch to total 125mcg and remove per schedu le 2024 - Hydrocodone-A cetaminophen Tablet 10-325 MG active 230034 RXNORM 1 tablet Oral as needed PRN Give 1 tablet by mouth every 8 hours as needed for Pain 2024 - Escitalopram Oxalate Tablet 5 MG active 510188 RXNORM 1 tablet Oral one time a day Routine Give 1 tablet by mouth one time a day for Depres clarissa 2024 - MiraLax Oral Powder 17 GM/SCOOP active 276259 RXNORM 1 scoop Oral one time a day Routine Give 1 scoop by mouth one time a day every other day relate d to JOSE MARTIN GREENBERG , UNSPEC IFIED (K59.0 0) Dissol ve in 4-8oz of liquid 2024 - Mental Status Section Date Assessment Total Score Description 10/19/2024 BIMS 15 cognitively int act CAM 0 No delirium ind icated PHQ-9 00 07/21/2024 BIMS 13 cognitively int act CAM 0 No delirium ind icated PHQ-9 00 Problems Problem # Description Date of onset Resolved Date Code CodeSystem Concern Status 1 ACUTE EMBOLISM AND THROMBOSIS OF UNSPECIFIED DEEP VEINS OF RIGHT LOWER EXTREMITY 05/12/1907/15/[address] completed 2 ACUTE GASTRIC ULCER WITH HEMORRHAGE 05/12/1907/15/[address] completed 3 ACUTE ON CHRONIC DIASTOLIC (CONGESTIVE) HEART FAILURE 05/12/[address] active 4 ACUTE POSTHEMORRHAGIC ANEMIA 05/12/1907/15/[address] completed 5 ACUTE RESPIRATORY FAILURE WITH HYPOXIA 05/12/1907/15/[address] completed 6 ANEMIA, UNSPECIFIED 05/12/[address] active 7 CENTRILOBULAR EMPHYSEMA 05/12/[address] active 8 EPIGASTRIC SWELLING, MASS OR LUMP 05/12/[address] active 9 MAJOR DEPRESSIVE DISORDER, SINGLE EPISODE, UNSPECIFIED 05/12/[address] active 10 MALIGNANT NEOPLASM OF STOMACH, UNSPECIFIED 05/12/[address] active 11 MODERATE PROTEIN-CALORIE MALNUTRITION 05/12/[address] active 12 OTHER HYPOTENSION 05/12/[address] active 13 OTHER PULMONARY EMBOLISM WITHOUT ACUTE COR PULMONALE 05/12/19 25 07/15/[address] completed 14 OTHER STAPHYLOCOCCUS THE CAUSE OF DISEASES CLASSIFIED ELSEWHERE 05/12/[address] active 15 PAROXYSMAL ATRIAL FIBRILLATION 05/12/[address] active 16 PRESENCE OF RIGHT ARTIFICIAL HIP JOINT 05/12/[address] active 17 RETENTION OF URINE, UNSPECIFIED 05/12/[address] active 18 UNSPECIFIED ATRIAL FIBRILLATION 04/20/2005/12/[address] completed 19 OTHER SPECIFIED DISEASES OF JAWS 04/07/[address] active 20 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 04/02/[address] active 21 ANEURYSM OF RENAL ARTERY 04/02/[address] active 22 ANXIETY DISORDER, UNSPECIFIED 04/02/[address] active 23 BENIGN NEOPLASM OF COLON, UNSPECIFIED 04/02/[address] active 24 BENIGN PROSTATIC HYPERPLASIA WITHOUT LOWER URINARY TRACT SYMPTOMS 04/02/[address] active 25 CHRONIC COMBINED SYSTOLIC (CONGESTIVE) AND DIASTOLIC (CONGESTIVE) HEART FAILURE 04/02/[address] active 26 CHRONIC KIDNEY DISEASE, STAGE 3 UNSPECIFIED 04/02/[address] active 27 CHRONIC OBSTRUCTIVE PULMONARY DISEASE WITH (ACUTE) EXACERBATION 04/02/[address] active 28 CONSTIPATION, UNSPECIFIED 04/02/[address] active 29 COUGH, UNSPECIFIED 04/02/2005/12/[address] completed 30 CRAMP AND SPASM 04/02/[address] active 31 DEPRESSION, UNSPECIFIED 04/02/[address] active 32 ENCOUNTER FOR PROPHYLACTIC MEASURES, UNSPECIFIED 04/02/[address] active 33 ESSENTIAL (PRIMARY) HYPERTENSION 04/02/[address] active 34 FRACTURE OF UNSPECIFIED PART OF NECK OF RIGHT FEMUR, SUBSEQUENT ENCOUNTER FOR CLOSED FRACTURE WITH ROUTINE HEALING 04/02/20 24 07/15/[address] completed 35 FRACTURE OF UNSPECIFIED PART OF NECK OF UNSPECIFIED FEMUR, SUBSEQUENT ENCOUNTER FOR CLOSED FRACTURE WITH ROUTINE HEALING 04/02/20 24 04/02/[address] completed 36 GASTRO-ESOPHAGEAL REFLUX DISEASE WITHOUT ESOPHAGITIS 04/02/[address] active 37 HYPERLIPIDEMIA, UNSPECIFIED 04/02/[address] active 38 HYPERSOMNIA, UNSPECIFIED 04/02/[address] active 39 HYPO-OSMOLALITY AND HYPONATREMIA 04/02/[address] active 40 HYPOTHYROIDISM, UNSPECIFIED 04/02/[address] active 41 INFRARENAL ABDOMINAL AORTIC ANEURYSM, WITHOUT RUPTURE 04/02/[address] active 42 INTERVERTEBRAL DISC DISORDERS WITH RADICULOPATHY, LUMBAR REGION 04/02/[address] active 43 MAJOR DEPRESSIVE DISORDER, RECURRENT, IN FULL REMISSION 04/02/2005/12/[address] completed 44 OTHER CHRONIC PAIN 04/02/[address] active 45 OTHER INTERVERTEBRAL DISC DISPLACEMENT, LUMBAR REGION 04/02/[address] active 46 OTHER SYMPTOMS AND SIGNS INVOLVING THE NERVOUS SYSTEM 04/02/[address] active 47 OTHER VASCULAR MYELOPATHIES 04/02/[address] active 48 PAIN IN LEFT HIP 04/02/[address] active 49 PAIN IN RIGHT HIP 04/02/[address] active 50 PAIN IN RIGHT LEG 04/02/[address] active 51 PAIN IN UNSPECIFIED LIMB 04/02/[address] active 52 PERSONAL HISTORY OF OTHER DISEASES OF THE CIRCULATORY SYSTEM 04/02/[address] active 53 PRESENCE OF AUTOMATIC (IMPLANTABLE) CARDIAC DEFIBRILLATOR 04/02/[address] active 54 RASH AND OTHER NONSPECIFIC SKIN ERUPTION 04/02/[address] active 55 SACROILIITIS, NOT ELSEWHERE CLASSIFIED 04/02/[address] active 56 SLEEP DISORDER, UNSPECIFIED 04/02/[address] active 57 SPINAL STENOSIS, LUMBAR REGION WITHOUT NEUROGENIC CLAUDICATION 04/02/[address] active 58 SPONDYLOLISTHESIS, SITE UNSPECIFIED 04/02/[address] active 59 SPONDYLOSIS WITHOUT MYELOPATHY OR RADICULOPATHY, LUMBAR REGION 04/02/[address] active 60 SPONDYLOSIS WITHOUT MYELOPATHY OR RADICULOPATHY, LUMBOSACRAL REGION 04/02/[address] active 61 UNSPECIFIED ROTATOR CUFF TEAR OR RUPTURE OF UNSPECIFIED SHOULDER, NOT SPECIFIED TRAUMATIC 04/02/[address] active Reason for Referral No Reasons for Referral Entered Social History Social History Observation Description Start Date End Date Code Code System Current Smoking Status Tobacco smoking consumption unknown 684567209 SNOMED CT Sex Assigned At Male 1935 61288-9 [facility] Gender Identity Vital Signs Code Code System Vitals Name Values and Units Timing Information 83907-7 [facility] O2 % BldC Oximetry Value=92.0 Units= % 10/23/2024 12695-5 [facility] Pain Level Value=0.0 10/23/2024 9279-1 [facility] Respiratory Rate Value=18.0 Units=/m in 10/23/2024 8462-4 [facility] Blood Pressure-Diastolic Value=52 Un its=mmHg 10/23/2024 8480-6 [facility] Blood Pressure-Systolic Gaskl=985 Un its=mmHg 10/23/2024 8310-5 [facility] Body Temperature Value=98.9 Units= F 10/23/2024 8867-4 [facility] Heart rate Value=73.0 Units=/min 77988-0 [facility] Weight Axsal=019.0 Units=Lbs 8302-2 [facility] Height Value=70.0 Units=Inches 10/19/2024
--- OUTSIDE RECORDS SUMMARY | 2024-10-22 22:35 | XMS_ITS | Patient Health Record ---
Author Organization [facility] Address [address] [place], [place] [address] Care Team Providers Care Tag Maker Name Role Phone Lucy ANDRES, Geraldine Primary Care Provider Jamison Kelly MD, Long Unavailable [phone] Carlos Thomas Unavailable Unavailable Allergies Allergen (clinical drug ingredient) Drug/Non Drug Allergy documented on EMR Reaction Allergy Type Onset Date Status sulfa (uncoded) Unknown Allergy Acti ve Reason For Referral No Information Medications Medication SIG (Take, Route, Frequency, Duration) Notes Start Date End Date Status acetaminophen-hydrocodone 325 mg-10 mg 1/2 - 1 tab orally Q4-6H prn pain (max 2/day; hold within 4H of planned sleep) 01/20/2023 Active acetaminophen-hydrocodone 325 mg-10 mg 1/2 - 1 tab orally Q4-6H prn pain (max 2/day; hold within 4H of planned sleep) Active Tylenol Extra Strength 500 mg 1 tabs orally once a day Act mk aspirin 81 mg 1 tab orally once a day 06/07/2019 Active acetaminophen-hydrocodone 325 mg-10 mg 1/2 - 1 tab orally Q4-6H prn pain (max 2/day; hold within 4H of planned sleep) 01/20/2023 Active amiodarone 200 mg 2 tabs orally once a day Active Vitamin D3 2000 intl units as directed Active dutasteride 0.5 mg 1 caps orally once a day Active levocetirizine 5 mg 1 tab orally once a day (in the evening) Active ferrous sulfate 325 mg 1 tab orally 3 ti mes a day Active montelukast 10 mg 1 tab orally once a day Active lisinopril 2.5 mg 1 tab orally once a day Active tamsulosin 0.4 mg 1 cap orally once a day Active sertraline 50 mg 1 tab orally once a day 0 Active Social History Tobacco Use: Social History Observation Description Date Details (start date - stop date) Former Smoker NA - NA alcohol Question Answer Notes Did you have a drink containing alcohol in the p ast year? No Points 0 Interpretation Negative Tobacco use: Question Answer Notes : former smoker When did you stop smoking? 2007 Problems Problem Type SNOMED Code ICD Code Onset Dates Problem Status W/U Status Risk Notes Problem Spasm (57273704) Muscle spasm (728.85) Active confirmed Problem Hypersomnia (29599661) Hypersomnia (780.54) Active confirmed Problem Limb pain (75947225) Limb pain (729.5) Active confirmed Problem Low back pain (061517602) Low back pain (724.2) Active confirmed Problem Displacement of lumbar intervertebral disc without myelopathy (47082206) Lumbar (w/out myelopathy) intervertebral disc disorder (722.10) Active confirmed Problem Long-term drug therapy (112714127) LONG-TERM USE MEDS NEC (V58.69) Active confirmed r/o substance abuse Problem Spondylolisthesis (676469762) Spondylolisthesis (738.4) Active confirmed Problem Anxiety state (439735621) Anxiety State, other, specified: procedure related (300.09) Active confirmed Problem Lumbar spinal stenosis (44461393) Lumbar spinal stenosis (724.02) Active confirmed Problem Solitary sacroiliitis (380498110) Sacroiliitis (720.2) Active confirmed Problem Lumbosacral spondylosis without myelopathy (31144375) Lumbosacral spondylosis without myelopathy (721.3) Active confirmed Problem Solitary sacroiliitis (420105109) Sacroiliitis, not elsewhere classified (M46.1) Active confirmed Problem Low back pain (766081310) Low back pain (M54.5) Active confirmed Problem Lumbosacral spondylosis without myelopathy (78924287) Spondylosis without myelopathy or radiculopathy, lumbar region (M47.816) Active confirmed Problem High risk drug monitoring status (284710548) buttermaker (current) use of opiate analgesic (Z79.891) Active confirmed Problem Anxiety disorder (902882899) Other specified anxiety disorders (F41.8) Active confirmed Problem Hypersomnia (74645478) Hypersomnia, unspecified (G47.10) Active confirmed Problem Sleep disorder (15636358) Other sleep disorders (G47.8) Active confirmed Problem Chronic pain (85361745) Other chronic pain (G89.29) Active confirmed Problem Acquired spondylolisthesis (353981285) Spondylolisthesis, lumbar region (M43.16) Active confirmed Problem Spinal stenosis of lumbar region (68860605) Spinal stenosis, lumbar region (M48.06) Active confirmed Problem Radiculopathy due to lumbar intervertebral disc disorder (128514974442307) Intervertebral disc disorders with radiculopathy, lumbar region (M51.16) Active confirmed Problem Pain in right leg (659291447) Pain in right leg (M79.604) Active confirmed Problem Long-term current use of drug therapy (878446929) Other buttermaker (current) drug therapy (Z79.899) Active confirmed Problem Neurogenic claudication (473565035) Spinal stenosis, lumbar region with neurogenic claudication (M48.062) Active confirmed Problem Pain in lumbar spine (442162305) Vertebrogenic low back pain (M54.51) Active confirmed Plan Of Treatment No Information Insurance Providers Payer Name Payer Address Payer Phone Subscriber Number Group Number Insured Name Patient Relationship to Insured Coverage Start Date Coverage End Date MEDICARE SOL[employer]IONS [address] [address] [place] [phone] [id number] James Villasenor Self - patient is the insured Medical (General) History Medical History History ICD Code Chronic pain Low back pain Lumbar spondylosis, disc disease, spinal stenosis and spondylolisthesis Bilateral sciatica Leg pain Lumbar foraminal stenosis Sacroiliitis Gastroesophageal reflux disease Skin cancer Colon polyps Abdominal aortic aneurysm Congestive heart failure COPD Tubular adenoma of colon Cardiac defibrillator in place Surgical History Surgery Date(Month/Year) Colonoscopy Excision of pilonidal cyst, Rotator cuff repair, bilateral, 1990, 98 Inguinal hernia repair, right, 2007 Tubular adenoma excision, 02/2010 Removal of wart, chest, 01/2015 Hernia repair, performed at [facility] by Dr. Dimitry madrid, 04/2020 Abdominal aneurysm repair, performed at [facility] in [place], [place], 12/2020 Hospitalization History Reason Date(Month/Year) Defibrillator, 2015 Short of breath, 03/24/15
--- OUTSIDE RECORDS SUMMARY | 2024-10-22 22:35 | XMS_ITS | Encounter Summary ---
Author Organization [facility] Address [address] [place] [address] Care Team Providers Care Senior Php Developer Name Role Phone Geraldine Ayala MD Primary Care Provider Encounter Details Date Type Department Care Team (Latest Contact Info) Description 05/07/1999 Outpatient Historical [facility] Family Medicine [place] [address] [phone] Michele Valerio DO NO ADDRESS ON FILE Acute sinusitis, unspecified (Primary Dx) Social History Tobacco Use Types Packs/Day Years Used Date Smoking Tobacco: Never Assessed Sex and Gender Information Value Date Recorded Sex Assigned at Not on file 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
--- OUTSIDE RECORDS SUMMARY | 2024-10-22 22:35 | XMS_ITS | Encounter Summary ---
Author Organization [facility] Address [address] [place] [address] Care Team Providers Care Errand Runner Name Role Phone Geraldine Ayala MD Primary Care Provider Encounter Details Date Type Department Care Team (Latest Contact Info) Description 07/15/2001 Outpatient Historical [facility] Family Medicine [place] [address] [phone] Ankita Sharp MD NO ADDRESS ON FILE ACUTE URI NOS (Primary Dx) Social History Tobacco Use Types Packs/Day Years Used Date Smoking Tobacco: Never Assessed Sex and Gender Information Value Date Recorded Sex Assigned at Not on file 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
--- OUTSIDE RECORDS SUMMARY | 2024-10-22 22:35 | XMS_ITS | Encounter Summary ---
Author Organization [facility] Address [address] [place] [address] Care Team Providers Care Foot Specialist Name Role Phone Geraldine Ayala MD Primary Care Provider Encounter Details Date Type Department Care Team (Latest Contact Info) Description 02/10/1998 Outpatient Historical [facility] Family Medicine [place] [address] [phone] Herber Doyle MD [address] [facility] [address] [place] [phone] Need vaccination-viral disease (Primary Dx) Social History Tobacco Use Types Packs/Day Years Used Date Smoking Tobacco: Never Assessed Sex and Gender Information Value Date Recorded Sex Assigned at Not on file Legal Sex Male 2:59 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
--- OUTSIDE RECORDS SUMMARY | 2024-10-22 22:35 | XMS_ITS | Encounter Summary ---
Author Organization [facility] Address [address] [place] [address] Care Team Providers Care Precision Lens Grinder Name Role Phone Geraldine Ayala MD Primary Care Provider Encounter Details Date Type Department Care Team (Latest Contact Info) Description 04/14/2000 Outpatient Historical [facility] Medicine [place] [address] [phone] Herber Doyle MD [address] [facility] [address] [place] [phone] Need vaccination-viral disease (Primary Dx) Social History Tobacco Use Types Packs/Day Years Used Date Smoking Tobacco: Never Assessed Sex and Gender Information Value Date Recorded Sex Assigned at Not on file 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
--- OUTSIDE RECORDS SUMMARY | 2024-10-22 22:35 | XMS_ITS | Encounter Summary ---
Author Organization [facility] Address [address] [place] [address] Care Team Providers Care Technical Services Specialist Name Role Phone Geraldine Ayala MD Primary Care Provider Encounter Details Date Type Department Care Team (Latest Contact Info) Description 06/16/2002 Outpatient Historical [facility] Family Medicine [place] [address] [phone] Michele Valerio DO NO ADDRESS ON FILE ACUTE BRONCHITIS (Primary Dx) Social History Tobacco Use Types Packs/Day Years Used Date Smoking Tobacco: Never Assessed Sex and Gender Information Value Date Recorded Sex Assigned at Not on file 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
--- OUTSIDE RECORDS SUMMARY | 2024-10-22 22:35 | XMS_ITS | Encounter Summary ---
Author Organization [facility] Address [address] [place] [address] Care Team Providers Care Airbrush Artist Photography Name Role Phone Geraldine Ayala MD Primary Care Provider [phone] Encounter Details Date Type Department Care Team (Latest Contact Info) Description 08/14/[address] 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
--- OUTSIDE RECORDS SUMMARY | 2024-10-22 22:35 | XMS_ITS | Encounter Summary ---
Author Organization [facility] Address [address] [place] [address] Care Team Providers Care Pulverizer Operator Name Role Phone Geraldine Ayala MD Primary Care Provider Reason for Referral * Outpatient Services (Routine) - Closed Specialty Diagnoses / Procedures Referred By Contac t Referred To Contact Diagnoses Sacroiliitis, not elsewhere classified Pain in limb Procedures MRI LUMBAR WO CONTRAST Av Triana MD NO ADDRESS ON FILE [facility] [address] [facility] [address] [place] [address] Phone: tel: fax: Referral ID Status Reason Start Date Expiration Date Visits Re quested Visits Authorized [id number] Closed 08/18/2012 09/18/2013 1 1 Encounter Details Date Type Department Care Team (Latest Contact Info) Description 08/18/2012 Ancillary Orders [facility] Centralized Scheduling [address] [facility] [address] [place] [phone] Av Triana MD NO ADDRESS ON FILE Sacroiliitis, not elsewhere classified (Primary Dx); Pain in limb Social History Tobacco Use Types Packs/Day Years Used Date Smoking Tobacco: Former Cigarettes 0.3 40 1 05/11/1971 - 03/11/2012 Smokeless Tobacco: Never Comments:smokes 1/2 pack per week Alcohol Use Standard Drinks/Week Comments No 0 (1 standard drink = 0.6 oz pur e alcohol) Sex and Gender Information Value Date Recorded Sex Assigned at Not on file 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 Gender Identity Not on file Sexual Orientation Not on file Occupation Industry Job Start Date Job End Date Not on file Not on file Not on file Not on file documented as of this encounter Plan of Treatment Not on file documented as of this encounter Results * MRI LUMBAR WO CONTRAST (08/24/2012 10:54 AM CDT) Anatomical Region Laterality Modality Spine Magnetic Resonan ce 08/24/2012 10:1 0 AM CDT Impressions 08/24/2012 1:52 PM CDT Impression: 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 Incidental note made of a small aneurysm involving the infrarenal abdominal aorta. Findings called to Dr. Triana at [phone] at the time of interpretation. See above for additional pertinent findings and details. [email or web address] - uploaded from [employer] - [employer] 08/24/2012 1:52 PM CDT MRI of the lumbar spine without contrast. Reason for study: Bilateral leg pain. Standard technique was performed without contrast. Findings: The marrow signal is heterogeneous on the T1 and T2-weighted sequences suggestive of osteopenia no infiltrative marrow process. L5-S1: Degenerative disc disease with Modic type II degenerative changes superior endplate of S1 and inferior endplate of L5. Shallow mixed spondylotic disc protrusions with biforaminal protrusions with moderate to severe bilateral neural foramina stenosis. Advanced facet arthropathy with severe acquired central canal stenosis. Encroachment on exiting L5 and descending S1 nerve roots. L4-L5: Minimal grade 1 anterolisthesis of L4 on L5. Shallow mixed spondylitic disc protrusions with biforaminal protrusions, severe bilateral neural foramina stenosis and acquired central canal stenosis. Facet arthropathy with ligamentum flavum hypertrophy with resultant severe acquired central canal stenosis, encroachment on exiting L4 and descending L5 nerve roots. L3-L4: Schmorl's node superior endplate of the L3 vertebral body. Shallow mixed spondylotic disc protrusion with biforaminal protrusions. Moderate bilateral neural foramina stenosis and acquired central canal stenosis. Abutment of exiting L3 and descending L4 nerve roots. L2-L3 L1-L2: Shallow mixed spondylitic disc protrusion with biforaminal protrusions, moderate to severe bilateral neural foraminal stenosis and acquired central canal stenosis. The lumbar spine demonstrates dextroscoliosis. The sacroiliac joints demonstrate degenerative changes. The conus is visualized and is unremarkable. An infrarenal abdominal aortic aneurysm is appreciated measuring 3.8 cm x 3.6 cm in dimension. The visualized kidneys are unremarkable. The sacroiliac joints are unremarkable. On the films edge diverticulosis appreciated of the sigmoid colon. Procedure Note Jose So MD - 08/24/2012 MRI of the lumbar spine without contrast. Reason for study: Bilateral leg pain. Standard technique was performed without contrast. Findings: The marrow signal is heterogeneous on the T1 and T2-weighted sequences suggestive of osteopenia no infiltrative marrow process. L5-S1: Degenerative disc disease with Modic type II degenerative changes superior endplate of S1 and inferior endplate of L5. Shallow mixed spondylotic disc protrusions with biforaminal protrusions with moderate to severe bilateral neural foramina stenosis. Advanced facet arthropathy with severe acquired central canal stenosis. Encroachment on exiting L5 and descending S1 nerve roots. L4-L5: Minimal grade 1 anterolisthesis of L4 on L5. Shallow mixed spondylitic disc protrusions with biforaminal protrusions, severe bilateral neural foramina stenosis and acquired central canal stenosis. Facet arthropathy with ligamentum flavum hypertrophy with resultant severe acquired central canal stenosis, encroachment on exiting L4 and descending L5 nerve roots. L3-L4: Schmorl's node superior endplate of the L3 vertebral body. Shallow mixed spondylotic disc protrusion with biforaminal protrusions. Moderate bilateral neural foramina stenosis and acquired central canal stenosis. Abutment of exiting L3 and descending L4 nerve roots. L2-L3 L1-L2: Shallow mixed spondylitic disc protrusion with biforaminal protrusions, moderate to severe bilateral neural foraminal stenosis and acquired central canal stenosis. The lumbar spine demonstrates dextroscoliosis. The sacroiliac joints demonstrate degenerative changes. The conus is visualized and is unremarkable. An infrarenal abdominal aortic aneurysm is appreciated measuring 3.8 cm x 3.6 cm in dimension. The visualized kidneys are unremarkable. The sacroiliac joints are unremarkable. On the films edge diverticulosis appreciated of the sigmoid colon. 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 Incidental note made of a small aneurysm involving the infrarenal abdominal aorta. Findings called to Dr. Triana at [phone] at the time of interpretation. See above for additional pertinent findings and details. [email or web address] - uploaded from [employer] - us Av Triana MD MR ORDERABLES Final Resul t documented in this encounter Visit Diagnoses Diagnosis Sacroiliitis, not elsewhere classified- Primary Pain in limb Sacroiliitis, not elsewhere classified Pain in limb documented in this encounter Care Teams Pulverizer Operator Relationship Specialty Start Date End Date Geraldine Ayala MD [address] [phone] PCP - General Family Practice 01/30/15 documented as of this encounter
--- OUTSIDE RECORDS SUMMARY | 2024-10-22 22:35 | XMS_ITS | Encounter Summary ---
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
--- OUTSIDE RECORDS SUMMARY | 2024-10-22 22:36 | XMS_ITS | Encounter Summary ---
Author Organization [facility] Address [address] [place] [address] Care Team Providers Care Campus Recruiter Name Role Phone Geraldine Ayala MD Primary Care Provider Encounter Details Date Type Department Care Team (Latest Contact Info) Description 03/13/2006 Outpatient Historical [facility] [place] [address] [place] [phone] Tonny Acuna, DPM NO ADDRESS ON FILE Ulcer of Other Part of Foot (CMS/HCC) (Primary Dx); Unspecified Local Infection of Skin and Subcutaneous Tissue Social History Tobacco Use Types Packs/Day Years Used Date Smoking Tobacco: Never Assessed Sex and Gender Information Value Date Recorded Sex Assigned at Not on file 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
--- OUTSIDE RECORDS SUMMARY | 2024-10-22 22:36 | XMS_ITS | Encounter Summary ---
Author Organization [facility] Address [address] [place] [address] Care Team Providers Care Pattern Cutter Name Role Phone Geraldine Ayala MD Primary Care Provider Encounter Details Date Type Department Care Team (Latest Contact Info) Description 03/13/2006 Outpatient Historical [facility], Nose and Throat 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
--- OUTSIDE RECORDS SUMMARY | 2024-10-22 22:36 | XMS_ITS | Encounter Summary ---
Author Organization [facility] Address [address] [place] [address] Care Team Providers Care Turn Down Man Name Role Phone Geraldine Ayala MD Primary Care Provider Encounter Details Date Type Department Care Team (Latest Contact Info) Description 05/01/2006 Outpatient Historical [facility] Podiat[facility] [place] [address] [place] [phone] Tonny Acuna, DPM NO ADDRESS ON FILE Ulcer of Other Part of Foot (CMS/HCC) (Primary Dx) Social History Tobacco Use Types Packs/Day Years Used Date Smoking Tobacco: Never Assessed Sex and Gender Information Value Date Recorded Sex Assigned at Not on file 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
--- OUTSIDE RECORDS SUMMARY | 2024-10-22 22:36 | XMS_ITS | Encounter Summary ---
Author Organization [facility] Address [address] [place] [address] Care Team Providers Care Rewinder Operator Name Role Phone Geraldine Ayala MD Primary Care Provider Encounter Details Date Type Department Care Team (Latest Contact Info) Description 10/10/2004 Outpatient Historical [facility] Podiatry-[place] [address] [place] [phone] Portillo Ramirez, DPM [address] [place] [address] EXOSTOSIS, SITE NOS (Primary Dx); SKIN ANOMALY NEC Social History Tobacco Use Types Packs/Day Years Used Date Smoking Tobacco: Never Assessed Sex and Gender Information Value Date Recorded Sex Assigned at Not on file 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
--- OUTSIDE RECORDS SUMMARY | 2024-10-22 22:36 | XMS_ITS | Encounter Summary ---
Author Organization [facility] Address [address] [place] [address] Care Team Providers Care Correctional Medicine Physician Name Role Phone Geraldine Ayala MD Primary Care Provider Encounter Details Date Type Department Care Team (Latest Contact Info) Description 04/07/2006 Outpatient [facility] Podiatry-[facility] [place] [address] [place] [address] Tonny Acuna, DPM NO ADDRESS ON FILE Calcaneal Spur (Primary Dx) Social History Tobacco Use Types Packs/Day Years Used Date Smoking Tobacco: Never Assessed Sex and Gender Information Value Date Recorded Sex Assigned at Not on file 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
--- OUTSIDE RECORDS SUMMARY | 2024-10-22 22:36 | XMS_ITS | Encounter Summary ---
Author Organization [facility] Address [address] [place] [address] Care Team Providers Care Filling Machine Tender Name Role Phone Geraldine Ayala MD Primary Care Provider [phone] Encounter Details Date Type Department Care Team (Latest Contact Info) Description 02/28/2004 Outpatient Historical [facility] Family Medicine [place] [address] [phone] Michele Valerio DO NO ADDRESS ON FILE LUMBAGO (Primary Dx); JOINT PAIN-PELVIS Social History Tobacco Use Types Packs/Day Years Used Date Smoking Tobacco: Never Assessed Sex and Gender Information Value Date Recorded Sex Assigned at Not on file 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
--- OUTSIDE RECORDS SUMMARY | 2024-10-22 22:36 | XMS_ITS | Encounter Summary ---
Author Organization [facility] Address [address] [place] [address] Care Team Providers Care German Professor Name Role Phone Geraldine Ayala MD Primary Care Provider Encounter Details Date Type Department Care Team (Latest Contact Info) Description 08/29/2003 Outpatient Historical [facility] Family Medicine [place] [address] [phone] Michele Valerio DO NO ADDRESS ON FILE ACUTE BRONCHITIS (Primary Dx) Social History Tobacco Use Types Packs/Day Years Used Date Smoking Tobacco: Never Assessed Sex and Gender Information Value Date Recorded Sex Assigned at Not on file 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
--- OUTSIDE RECORDS SUMMARY | 2024-10-22 22:36 | XMS_ITS | Encounter Summary ---
Author Organization [facility] Address [address] [place] [address] Care Team Providers Care Senior Quality Assurance Analyst Name Role Phone Geraldine Ayala MD Primary Care Provider [phone] Encounter Details Date Type Department Care Team (Late st Contact Info) Description 05/20/2007 Outpatient Historical [facility] General Surgery [address] [address] [address] [place] [phone] Dominik Nelson, NO ADDRESS ON FILE Social History Tobacco Use Types Packs/Day Years Used Date Smoking Tobacco: Never Assessed Sex and Gender Information Value Date Recorded Sex Assigned at Not on file 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 OBJECTIVE: His left inguinal hernia repair has healed nicely. There is no evidence of recurrence ofhis hernia. The clips were removed and Steri-Strips were applied. He had a basal cell carcinoma on his dorsum and those stitches were removed. PLAN: He was told the results of the path report, that we had gotten it all. His right thumb is healing nicely from extinction of his thumb nail. He was asked to return in a couple of weeks for followup and given the usual postop instructions. At the present time the patient is doing well. Dominik Nelson D.O.,[facility] General Surgery Electronically Signed by Dominik Nelson D.O., 05/25/2007 14:26 , 11:32 A A, 615 Document #: [id number] cc: ACTORY MANAGER documented in this encounter Plan of Treatment Not on file documented as of this encounter Visit Diagnoses Not on filedocumented in this encounter Care Teams Senior Quality Assurance Analyst Relationship Specialty Start Date End Date Geraldine Ayala MD [address] [phone] PCP - General Family Practice 01/30/15 documented as of this encounter
--- OUTSIDE RECORDS SUMMARY | 2024-10-22 22:36 | XMS_ITS | Encounter Summary ---
Author Organization [facility] Address [address] [facility] [address] 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
--- OUTSIDE RECORDS SUMMARY | 2024-10-22 22:36 | XMS_ITS | Encounter Summary ---
Author Organization [facility] Address [address] [place] [address] Care Team Providers Care Medicine Man Name Role Phone Geraldine Ayala MD Primary Care Provider [phone] Encounter Details Date Type Department Care Team (Latest Contact Info) Description 04/18/2006 Outpatient 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
--- OUTSIDE RECORDS SUMMARY | 2024-10-22 22:36 | XMS_ITS | Encounter Summary ---
Author Organization [facility] Address [address] [place] [address] Care Team Providers Care Deckhand Shrimp Boat Name Role Phone Geraldine Ayala MD Primary Care Provider Encounter Details Date Type Department Care Team (Latest Contact Info) Description 05/20/2005 Outpatient Historical [facility] Family Medicine [place] [address] [phone] Michele Valerio DO NO ADDRESS ON FILE MALE GEN INFLAM DIS NEC (Primary Dx) Social History Tobacco Use Types Packs/Day Years Used Date Smoking Tobacco: Never Assessed Sex and Gender Information Value Date Recorded Sex Assigned at Not on file 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
--- OUTSIDE RECORDS SUMMARY | 2024-10-22 22:36 | XMS_ITS | Encounter Summary ---
Author Organization [facility] Address [address] [place] [address] Care Team Providers Care Cell Efficiency Supervisor Name Role Phone Geraldine Ayala MD Primary Care Provider Encounter Details Date Type Department Care Team (Late st Contact Info) Description 05/05/2007 Outpatient Historical [facility] Family Medicine [place] [address] [phone] Michele Valerio DO NO ADDRESS ON FILE Social History Tobacco Use Types Packs/Day Years Used Date Smoking Tobacco: Never Assessed Sex and Gender Information Value Date Recorded Sex Assigned at Not on file 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
--- OUTSIDE RECORDS SUMMARY | 2024-10-22 22:36 | XMS_ITS | Encounter Summary ---
Author Organization [facility] Address [address] [place] [address] Care Team Providers Care Sap Gatherer Name Role Phone Geraldine Ayala MD Primary Care Provider Encounter Details Date Type Department Care Team (Latest Contact Info) Description 02/14/2006 Outpatient Historical [facility] Family Medicine [place] [address] [phone] Michele Valerio DO NO ADDRESS ON FILE Vaccine for influenza (Primary Dx) Social History Tobacco Use Types Packs/Day Years Used Date Smoking Tobacco: Never Assessed Sex and Gender Information Value Date Recorded Sex Assigned at Not on file 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
--- OUTSIDE RECORDS SUMMARY | 2024-10-22 22:36 | XMS_ITS | Encounter Summary ---
Author Organization [facility] Address [address] [place] [address] Care Team Providers Care Electronics Engineering Technologist Name Role Phone Geraldine Ayala MD Primary Care Provider Encounter Details Date Type Department Care Team (Late st Contact Info) Description 05/11/[address] 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
--- OUTSIDE RECORDS SUMMARY | 2024-10-22 22:36 | XMS_ITS | Encounter Summary ---
Author Organization [facility] Address [address] [place] [address] Care Team Providers Care High Density Finishing Operator Name Role Phone Geraldine Ayala MD Primary Care Provider Encounter Details Date Type Department Care Team (Latest Contact Info) Description 01/28/2006 Outpatient Historical [facility] Family Medicine [place] [address] [phone] Judy Freedman, FRUIT HARVEST WORKER [address] [place] [address] Acute Upper Respiratory Infections of Unspecified Site (Primary Dx); Corns and Callosities Social History Tobacco Use Types Packs/Day Years Used Date Smoking Tobacco: Never Assessed Sex and Gender Information Value Date Recorded Sex Assigned at Not on file 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
--- OUTSIDE RECORDS SUMMARY | 2024-10-22 22:36 | XMS_ITS | Encounter Summary ---
Author Organization [facility] Address [address] [place] [address] Care Team Providers Care Automobile Service Station Attendant Name Role Phone Geraldine Ayala MD Primary Care Provider Encounter Details Date Type Department Care Team (Latest Contact Info) Description 08/30/2004 Outpatient Historical [facility] Cardiac Theatrical Dresser [address] 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 INR 1.0 INTERFACE SYSTEM Comment: Expected Values for INR: DVT/PE Goal INR 2.5; range 2.0 - 3.0 Valve Replacement Tissue Goal INR 2.5; range 2.0 - 3.0 Mechanical Goal INR 3.0; range 2.5 - 3.5 POST-DC Goal INR 2.5; range 2.0 - 3.0 or Goal 3.0; range 2.5 - 3.5 Atrial Fibrillation Goal INR 2.5; range 2.0 - 3.0 Ischemic Stroke Goal INR 2.5; range 2.0 - 3.0 For additional information see Guidelines for Anticoagulation available from the pharmacy [facility] PTT 30.9 24.3 - 37.5 Secs INTERFACE SYSTEM Comment:Therapeutic Range: 08/30/2004 7:37 AM CDT us Nate Arguello MD HEMATOLOGY ORDERABLES Final Result INTERFACE SYSTEM Refer to clinic/hospital department * CBC WITHOUT DIFFERENTIAL (08/30/2004 7:37 AM CDT) WBC 6.9 4.8 - 10.8 K/ul INTERFACE SYSTEM RBC 4.78 4.60 - 6.20 Mil/ul INTERFACE SYSTEM HEMOGLOBIN 15.8 14.0 - 18.0 g/dL INTERFACE SYSTEM HEMATOCRIT 45.4 41.0 - 53.0 % INTERFACE SYSTEM MCV 95.0 84.0 - 103.0 Fl INTERFACE SYSTEM MCH 33.1 27.0 - 34.0 pg INTERFACE SYSTEM MCHC 34.8 30.0 - 35.0 g/dL INTERFACE SYSTEM RDW 12.7 11.0 - 14.5 percent(in active) INTERFACE SYSTEM PLATELETS 182 140 - 440 K/ul INTERFACE SYSTEM MPV 9.2 8.9 - 12.8 Fl INTERFACE SYSTEM NEUTROPHILS 48.6 42.2 - 75.2 percent(in active) INTERFACE SYSTEM LYMPHOCYTES 38.7 24.0 - 44.0 percent(in active) INTERFACE SYSTEM MONOCYTES 7.2 2.0 - 10.0 percent(in active) INTERFACE SYSTEM EOSINOPHILS 5.1 0.0 - 7.0 % INTERFACE SYSTEM BASOPHILS 0.4 0.0 - 1.0 percent(in active) INTERFACE SYSTEM NEUTROPHIL ABSOLUTE 3.4 2.0 - 8.0 K/uL INTERFACE SYSTEM LYMPHOCYTE ABSOLUTE 2.7 1.2 - 4.0 K/ul INTERFACE SYSTEM MONOCYTE ABSOLUTE 0.5 0.1 - 0.6 K/ul INTERFACE SYSTEM EOSINOPHIL ABSOLUTE 0.4 0.0 - 0.7 K/ul INTERFACE SYSTEM BASOPHILS ABSOLUTE 0.0 0.0 - 0.2 K/ul INTERFACE SYSTEM 08/30/2004 7:37 AM CDT Nate Arguello MD HEMATOLOGY ORDERABLES Final Result Performing Organization Address [facility] de Phone Number INTERFACE SYSTEM Refer to clinic/hospital department * (ABNORMAL) BASIC METABOLIC PANEL (08/30/2004 7:37 AM CDT) GLUCOSE 112(H) 70 - 110 mg/dL INTERFACE SYSTEM BUN 14 9 - 20 mg/dL INTERFACE SYSTEM CREATININE 1.2 0.7 - 1.5 mg/dL INTERFACE SYSTEM SODIUM 144 136 - 145 mEq/L INTERFACE SYSTEM POTASSIUM 4.3 3.5 - 5.0 mEq/L INTERFACE SYSTEM CHLORIDE 110 95 - 110 mEq/L INTERFACE SYSTEM CO2 33(H) 22 - 32 mmol/l INTERFACE SYSTEM ANION GAP 5(L) 9 - 20 mEq/L INTERFACE SYSTEM OSMOLALITY, CALCULATED 297(H) 275 - 295 mOsm/Kg INTERFACE SYSTEM CALCIUM 9.7 8.4 - 10.5 mg/dL INTERFACE SYSTEM 08/30/2004 7:37 AM CDT Nate Arguello MD CHEMISTRY ORDERABLES Final Result Performing Organization Address [facility] de Phone Number INTERFACE SYSTEM Refer to clinic/hospital department documented in this encounter Visit Diagnoses Diagnosis Chest pain, unspecified- Primary documented in this encounter Care Teams Automobile Service Station Attendant Relationship Specialty Start Date End Date Geraldine Ayala MD [address] [facility] [address] [place] [phone] PCP - General Family Practice 01/30/15 documented as of this encounter
--- OUTSIDE RECORDS SUMMARY | 2024-10-22 22:36 | XMS_ITS | Encounter Summary ---
Author Organization [facility] Address [address] [place] [address] Care Team Providers Care Wagon Washer Name Role Phone Geraldine Ayala MD Primary Care Provider Encounter Details Date Type Department Care Team (Latest Contact Info) Description 05/02/2003 Outpatient Historical [facility] Family [facility] [place] [address] [phone] Michele Valerio DO NO ADDRESS ON FILE GANGLION OF TENDON (Primary Dx) Social History Tobacco Use Types Packs/Day Years Used Date Smoking Tobacco: Never Assessed Sex and Gender Information Value Date Recorded Sex Assigned at Not on file 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
--- OUTSIDE RECORDS SUMMARY | 2024-10-22 22:36 | XMS_ITS | Encounter Summary ---
Author Organization [facility] Address [address] [place] [address] Care Team Providers Care Manager Of Sustainability Name Role Phone Geraldine Ayala MD Primary Care Provider Encounter Details Date Type Department Care Team (Latest Contact Info) Description 02/20/2006 Outpatient Historical [facility] Family [facility] [place] [address] [phone] Judy Freedman, CHEMISTRY ACCOUNT MANAGER [address] [place] [address] Acute Ethmoidal Sinusitis (Primary Dx); Special Screening for Malignant Neoplasm of Prostate; Special Screening for Malignant Neoplasms, Colon Social History Tobacco Use Types Packs/Day Years Used Date Smoking Tobacco: Never Assessed Sex and Gender Information Value Date Recorded Sex Assigned at Not on file 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
--- OUTSIDE RECORDS SUMMARY | 2024-10-22 22:36 | XMS_ITS | Clinical Summary ---
Author Organization [facility] Address [address] [place] [address] Care Team Providers Care Ceramic Capacitor Processor Name Role Phone Valdemar Douglass MD Primary Care Provider [phone] Allergies Active Allergy Reactions Criticality Noted Date Comments Sulfa (Sulfonamide Antibiotics) Other (See Comments) 01/23/2010 Medications ketoconazole (NIZORAL) 2 % CreamIndications :Urinary tract infection without hematuria, site unspecified Apply to affected area daily. 30 Gram 1 9 Active Additional Information Patient taking differently:TopicalDAILY PRN, Reported on 04/08/2024 amiodarone (CORDARONE) 200 mg tablet Take 400 mg by mouth daily. 8 Active Saccharomyces boulardii (FLORASTOR) 250 mg Capsule Take 250 mg by mouth daily. 1 Active albuterol sulfate 90 mcg/Actuation inhaler Take 2 Puffs by inhalation every 6 hours as needed (as needed). 8.5 Gram 11 2 Active sertraline (ZOLOFT) 50 mg tablet Take 1/2 (one-half) tablet by mouth twice daily 90 Tablet 2 Active acetaminophen (Tylenol Extra Strength) 500 mg tablet 1 tabs orally once a day Active mupirocin (BACTROBAN) 2 % OintmentIndicati ons:Cutaneous abscess, unspecified site Apply to affected area daily. 15 Gram 2 Active Additional Information Patient taking differently:TopicalDAILY PRN, Reported on 04/08/2024 inhalational spacing device (Microchamber) Spacer Use with symbicort 1 Each 3 Active Additional Information Patient taking differently: TWO TIMES DAILY, Use with symbicort, Reported on 04/08/2024 naloxone (NARCAN) 4 mg/spray Hopkins, Non-Aerosol USE ONE SPRAY IN NOSTRIL ONE TIME ONLY FOR ONE DOSE 3 Active fluorouraciL (EFUDEX) 5 % Cream 2 times daily as needed. 3 Active diclofenac sodium (VOLTAREN) 1 % gelIndications:S acroiliitis, not elsewhere classified,Lumba r spondylosis,Lumb ar foraminal stenosis Apply 2 Grams to affected area 4 times daily. 100 Gram 3 3 Active Additional Information Patient taking differently:2 Gram TopicalFOUR TIMES DAILY PRN, Reported on 04/08/2024 dutasteride (AVODART) 0.5 mg Capsule Take 1 capsule by mouth once daily 100 Capsule 3 4 Active rosuvastatin (CRESTOR) 20 mg tablet take 1 tablet by mouth once daily at bedtime 100 Tablet 2 4 Active gabapentin (NEURONTIN) 100 mg capsule Take 2 Capsules (200 mg) by mouth 2 times daily. 120 Capsule 3 4 Active terbinafine HCL (LamISIL) 250 mg tabletIndication s:Onychomycosis Take 1 Tablet (250 mg) by mouth daily. 30 Tablet 2 4 Active HYDROcodone-acet aminophen (NORCO) 10-325 mg TabletIndication s:Chronic pain of both hips,Chronic low back pain, unspecified back pain laterality, unspecified whether sciatica present Take 1 Tablet by mouth every 6 hours as needed for Pain, Moderate. Max Daily Amount: 4 Tablets 60 Tablet 4 Active budesonide-formo teroL (SYMBICORT) 160-4.5 mcg/actuation HFA Aerosol InhalerIndicatio ns:COPD with exacerbation (CMS/HCC) Inhale 2 puffs by mouth twice daily 11 Gram 2 4 Active sennosides-docus ate sodium (SENNA-S) 8.6-50 mg tablet Take 1 Tablet by mouth 2 times daily. 4 Active triamcinolone acetonide (KENALOG) 0.1 % Cream Apply to affected area 2 times daily as needed. Active polyethylene glycol 3350 (MIRALAX) 17 gram/dose Powder Take by mouth 1 time daily as needed for Constipation. Dissolve in 8 ounces of fluid and drink entire liquid Active bisacodyL (DULCOLAX) 10 mg Suppository Insert 10 mg by rectum 1 time daily as needed for Constipation. Active levothyroxine 100 mcg tablet Take 1 Tablet (100 mcg) by mouth daily in the morning. 5 Active hydrophilic wound dressing (TRIAD) Apply to affected area 2 times daily. 5 Active furosemide (LASIX) 40 mg tabletIndication s:Chronic combined systolic and diastolic congestive heart failure (CMS/HCC) Take 1 Tablet (40 mg) by mouth 1 time daily as needed for Other (See Comment) (use for weight gain >=2lb for 2 consecutive days or >=5lb/week). 5 Active midodrine (PROAMATINE) 5 mg tablet Take 1 Tablet (5 mg) by mouth every 8 hours. 5 Active pantoprazole (PROTONIX) 40 mg Tablet, Delayed Release (E.C.) Take 1 Tablet (40 mg) by mouth 2 times daily. 5 Active ferrous sulfate (FeroSuL) 325 mg (65 mg iron) tablet Take 1 tablet by mouth once daily 100 Tablet 1 5 Active tamsulosin (FLOMAX) 0.4 mg capsule Take 1 capsule by mouth once daily 100 Capsule Active Active Problems Problem Noted Date Diagnosed Date Urinary retention 05/11/2024 Hypothyroidism 05/11/2024 Gastric adenocarcinoma 05/05/2024 Palliative care by specialist 05/03/2024 Goals of care, counseling/discussion 05/03/2024 Protein-calorie malnutrition, moderate Acute pulmonary embolism without acute cor pulmo nale 04/30/2024 Gastrointestinal hemorrhage associated with deepika derek ulcer 04/30/2024 Gastric mass 04/30/2024 Acute blood loss anemia 04/30/2024 Normocytic anemia 04/27/2024 Fecal occult blood test positive 04/27/2024 Anticoagulated 04/27/2024 Acute hypoxic respiratory failure 04/25/2024 Hypotension due to hypovolemia 04/25/2024 Paroxysmal atrial fibrillation 04/24/2024 Staphylococcus epidermidis bacteremia 04/24/2024 Centrilobular emphysema 04/24/2024 Acute deep vein thrombosis (DVT) of right lower extremity 04/24/2024 Acute on chronic diastolic congestive heart fail ure 04/24/2024 Injury of left lower leg 04/08/2024 S/P hip replacement, right 04/08/2024 Anxiety and depression 03/30/2024 BPH (benign prostatic hyperplasia) 03/30/2024 Hyponatremia 03/29/2024 Fall 03/29/2024 Closed displaced fracture of right femoral neck 03/29/2024 Major depressive disorder, r ecurrent episode, in full remission 11/03/2023 Dyslipidemia, goal LDL below 70 09/25/2023 HTN, goal below 130/80 09/25/2023 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 Status post percutaneous abdominal aortic aneury sm repair 09/25/2023 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 Assessment & Plan (08/13/2021 3:27 PM CDT): Stable. Continue current treatment. Every Word Counts - Depression ([facility]) CKD (chronic kidney disease) stage 3, GFR 30-59 ml/min 01/21/2020 COPD with exacerbation 11/02/[address] 05/02/2016 Lumbar spinal stenosis 08/27/2012 Overview (08/24/2020): MRI: 08/08 Lumbar spondylosis 08/27/2012 Overview (08/24/2020): MRI: 08/08 Followed by [facility] in [place] Lumbar foraminal stenosis 08/27/2012 Infrarenal abdominal aortic aneurysm (AAA) witho ut rupture 08/24/2012 Overview (08/24/2020): MRI (08/08): 3.8 cm infrarenal aneurysm Tubular adenoma of colon, 03/0703/10/2012 Rotator cuff tear, S/P Repair of Bilateral shoul ders 07/29/2011 GERD (gastroesophageal reflux disease) Resolved Problems Problem Noted Date Diagnosed Date Resolved Date Low back pain 01/23/2022 01/28/2024 Atherosclerosis of north fork ar niya of right lower extremity 07/17/2020 08/11/2023 Overview (08/25/2020): ADDED PER PVQ RESPONSE DOS 3.10.2020 Prostate cancer screening 06/15/2012 Overview (08/24/2020): PSA: Screen for colon cancer 06/19/200812/28 Overview (08/24/2020): Colonoscopy: 03/07 (tubular adenoma x 1, repeat in 5 yrs); History of Squamous Cell Car cinoma of Skin, R Scalp (12/03) 03/18/2008 05/02/2016 Encounters Date Type Department Care Team Description 10/12/2024 External Device Data STL ABSTRACTION Provider, Abstract 10/06/2024 Telephone [facility] [place] [address] [place] [address] Jass Soares NP Appointment Notification 09/29/2024 External Device Data STL ABSTRACTION Provider, Abstract 09/14/2024 Orders Only [facility] [place] [address] [place] [address] Jass Soares NP Infrarenal abdominal aortic aneurysm (AAA) without rupture (Primary Dx); Status post percutaneous abdominal aortic aneurysm repair 08/31/2024 External Device Data STL ABSTRACTION Provider, Abstract 07/27/2024 External Device Data STL ABSTRACTION Provider, Abstract from Last 3 Months Immunizations Immunization Administration Dates Next Due (ADACEL/BOOSTRIX)(10 YR UP) TDAP VACCINE, 0.5ML, IM 12/17/2021(Deferred: - patient states he is up to date (had 2 years ago)),08/23/2020,03/04/2014 (PNEUMOVAX 23)(50 YRS UP) PN EUMOCOCCAL POLYSACCHARIDE (PPV23) 0.5 ML, IM 03/17/2008 (SPIKEVAX) (12 YRS UP PRIMAR Y SERIES) COVID-19 VACCINE - MRNA-1273(PF) 100 MCG/0.5 ML IM SUSP 02/19/2021,07/10/2020,06/12/2020 INFLUENZA VACCINE HIGH DOSE QUADRIVALENT 65 YR UP PF IM 01/01/2023,02/15/2022 INFLUENZA VACCINE HIGH DOSE TRIVALENT SPLIT VIRUS, (65 YR UP), 0.5ML (PF), IM 02/13/2024 INFLUENZA VACCINE QUADRIVALE NT 3 YR UP PF IM 03/04/2014 Influenza Seasonal Unspecifi ed Formulation IM 02/14/2006,02/04/2005,02/24/2003,02/23,04/14/2000 Influenza Vaccine High Dose 65+ Yrs IM 0 Influenza Vaccine Split 3+ Yrs IM 02/05/2010, Influenza Vaccine Split 3+ Yrs PF IM 03/10/2012 Family History Medical History Relation Name Comments Other Brother 1 of gunshot age 12 Other Brother 2 in motorcy yousuf accident Healthy Daughter 1 Healthy Daughter 2 Cancer Father Brain CA Cancer Mother Stomach CA Cancer Sister 1 Leukemia Diabetes Sister 2 High Cholesterol Sister 2 Lung Cancer Sister 2 Lung Cancer Sister 3 Healthy Son 1 Healthy Son 2 Breast Cancer Neg Hx Colon Cancer Neg Hx Relation Name Status Comments Brother 1 Brother 2 Daughter 1 Daughter 2 Father Mother Sister 1 Sister 2 Sister 3 Son 1 Son 2 Social History Tobacco Use Types Packs/Day Years Used Date Smoking Tobacco: Former Cigarettes Q uit: 03/11/2008 Smokeless Tobacco: Never Tobacco Cessation:Counseling Given: No Alcohol Use Standard Drinks/Week Comments No 0 (1 standard drink = 0.6 oz pur e alcohol) Financial Resource Strain Answer Date R ecorded How hard is it for you to pa y for the very basics like food, housing, medical care, and heating? Not hard at all 07/08/2022 Food Insecurity Answer Date Recorded In the past 12 months, have you worried that your food would run out before you had money to buy more? Never true 07/08/2022 In the past 12 months, did y ou run out of food and didn't have money to buy more? Never true 07/08/2022 Transportation Needs Answer Date Record ed In the past 12 months, has l ack of transportation kept you from medical appointments or from getting medications? No 07/08/2022 Lack of Transportation (Non-Medical) Not on file 07/08/2022 Feeling Safe Answer Date Recorded Are you in a relationship wi th someone who hurts you emotionally and/or physically? No 04/24/2024 Food Insecurity Answer Date Recorded Patient needs follow up regardin 08/31/2024 Transportation Needs Answer Date Record ed Patient needs follow up regardin 08/31/2024 Housing Stability Answer Date Recorded Social/Environmental Concerns No concerns Utility Needs Answer Date Recorded Patient needs follow up regardin 08/31/2024 Sex and Gender Information Value Date Recorded Sex Assigned at Male 03/29/2024 5:52 PM CLIENT CARE CONSULTANT Legal Sex Male 5:21 AM CLIENT CARE CONSULTANT Gender Identity Male 03/29/2024 5:52 PM CLIENT CARE CONSULTANT Sexual Orientation Not on file Last Filed Vital Signs Vital Sign Reading Time Taken Comments Blood Pressure 96/58 05/12/2024 7:52 PM CLIENT CARE CONSULTANT Pulse 62 05/12/2024 7:49 PM CLIENT CARE CONSULTANT Temperature 37 C (98.6 F) 05/12/2024 7:49 PM CLIENT CARE CONSULTANT Respiratory Rate 14 05/12/2024 7:49 PM CLIENT CARE CONSULTANT Oxygen Saturation 93% 05/12/2024 7:49 PM CLIENT CARE CONSULTANT Inhaled Oxygen Concentration - - Weight 102.5 kg (225 lb 15.5 oz) 05/10/2024 3:57 AM CLIENT CARE CONSULTANT Height 180.3 cm (5' 11 ) 04/24/2024 3:21 AM CLIENT CARE CONSULTANT Body Mass Index 31.52 04/24/2024 3:21 AM CLIENT CARE CONSULTANT Plan of Treatment Health Maintenance Due Date Last Done Comments ZOSTER VACCINE (1 of 2) 07/10/1985 PNEUMOCOCCAL VACCINE 50+ YEA RS (2 of 2 - PCV) 03/17/2009 03/17/2008 RSV VACCINE (60+ or ) (1 - 1-dose 75+ series) 07/10/2010 COVID-19 Vaccine (4 - 2023-2 5 season) 2023 02/19/2021, 07/10/2020, 06/12/2020 COLORECTAL SCREENING 04/29/2026 04/29/2024, 04/29/19 DTAP/TDAP/TD VACCINES (3 - T d or Tdap) 08/23/2030 08/23/2020, 03/04/2014 INFLUENZA VACCINE Completed 02/13/2024, , 02/15/2022, Additional history exists Goals Goal Patient Goal Type Associated Problems Recent Progress Patient-Stated? Author Heart Failure Goal Care Plan Heart Failure Problem No Gissel Aguayo LPN Heart Failure Goal Care Plan Heart Failure Problem No Rico Thompson Heart Failure Goal Care Plan Heart Failure Problem No Rico Thompson Heart Failure Goal Care Plan Heart Failure Problem No Selin Bolaños RN Heart Failure Goal Care Plan Heart Failure Problem No Selin Bolaños RN Heart Failure Goal Care Plan Heart Failure Problem No Selin Bolaños RN Heart Failure Goal Care Plan Heart Failure Problem No Selin Bolaños RN Medical Devices Implanted Type Area Chaser Helper Device Identifier Shelf Expiration Date Model / Serial / Lot Gabriel Carr 6215-5-011 - [id number] Implanted:Qty: 1 on 03/31/2024 by Fantasma Patel DO at [facility] Bone Right: Hip ARASH- [employer] [id number] 10/14/2028 6215-5-01 1 / / [id number] Cement Simplex P 6191-1-001 - Csc - [id number] Implanted:Qty: 1 on 03/31/2024 by Fantasma Patel DO at [facility] Cement Right: Hip ARASH- [employer] [id number] 08/25/2025 6191-1-01 0 / / [id number] Cement Simplex P 6191-1-001 - Csc - [id number] Implanted:Qty: 1 on 03/31/2024 by Fantasma Patel DO at [facility] Cement Right: Hip ARASH- [employer] [id number] 08/25/2025 6191-1-01 0 / / [id number] Closure Perclose Proglide 38559 - [id number] Implanted:Qty: 1 on 01/10/2021 by Jamar Gill MD at [facility] Closure Device Left: Groin SERRANO- VASC DEVICE 10/25/2022 22503 / / [id number] Closure Perclose Proglide 44700 - [id number] Implanted:Qty: 1 on 01/10/2021 by Jamar Gill MD at [facility] Closure Device Left: Groin SERRANO- VASC DEVICE 07/26/2022 08658 / / [id number] Closure Perclose Proglide 08822 - [id number] Implanted:Qty: 1 on 01/10/2021 by Jamar Gill MD at [facility] Closure Device Right: Groin SERRANO- VASC DEVICE 07/26/2022 20272 / / [id number] Closure Perclose Proglide 46718 - [id number] Implanted:Qty: 1 on 01/10/2021 by Jamar Gill MD at [facility] Closure Device Right: Groin SERRANO- VASC DEVICE 07/26/2022 [id number] / / [id number] Defibrillator Evera Medtronic-2015 [id number]/25/20 16 Implanted:07/20 (Quantity not on file) Defibrillator [employer] DVMB1D 4 / [id number] / Description:implanted Dr. Chel pearce at [place], current Strip Winder is Dr. Gibson Harris [facility] [phone] fax [phone] Lens Io Bi-Aspheric Softechd+21.0d - [id number] Implanted:Qty: 1 on 07/02/2017 by Christopher Syed MD Eye Right: Eye [employer] 02/20/2022 SOFTECHD+ 21.0D / [id number] / Lens Io Bi-Aspheric Softechd+20.0 - [id number] Implanted:Qty: 1 on 08/13/2017 by Christopher Syed MD Eye Left: Eye [employer] 06/23/2021 SOFTECHD+ 20.0 / [id number] / Centralizer Dist Invis 11mm 6415-0383 - [id number] Implanted:Qty: 1 on 03/31/2024 by Fantasma Patel DO at [facility] Hip Right: Hip [employer]OME [employer] [id number] 02/10/2031 [id number] / / [id number] Stem Fem Synrgy Cmnt Sz14 1790-8585 - [id number] Implanted:Qty: 1 on 03/31/2024 by Fantasma Patel DO at [facility] Hip Right: Hip [employer] [id number] 08/09/2032 [id number] / / [id number] Cup/Liner Tandem Bipolar 54mm 1351-4696 - [id number] Implanted:Qty: 1 on 03/31/2024 by Fantasma Patel DO at [facility] Hip Right: Hip [employer] [id number] 09/25/2026 [id number] / / [id number] Head Fem Cocr 04/10 28mm 9321-3999 - [id number] Implanted:Qty: 1 on 03/31/2024 by Fantasma Patel DO at [facility] Hip Right: Hip [employer] [id number] 05/19/2033 [id number] / / [id number] Medtronic Rv Lead-07/21/2015 6935m-62- 016 Implanted:07/20 (Quantity not on file) Lead [employer] 6935M-62 / [id number] / Stent Xcldr C3 Trnk-Ipsilat Leg [id number] - [id number] Implanted:Qty: 1 on 01/10/2021 by Jamar Gill MD at [facility] Stent N/A: Aorta [employer] 02/22/2023 [id number] / / [id number] Stent Xcldr Contrlat Leg [id number] - [id number] Implanted:Qty: 1 on 01/10/2021 by Jamar Gill MD at [facility] Stent Right: Aorta [employer] 10/04/2023 [id number] / / [id number] Stent Xcldr Contrlat Leg [id number] - [id number] Implanted:Qty: 1 on 01/10/2021 by Jamar Gill MD at [facility] Stent Left: Aorta [employer] 09/14/2023 [id number] / / [id number] Procedures Procedure Name Priority Date/Time Associated Diagnosis Comments COLONOSCOPY REPORT 04/29/2024 3: 18 PM CLIENT CARE CONSULTANT from Last 3 Months or Most Recently Relevant to Health Maintenance Results * COLONOSCOPY REPORT (04/29/2024 3:18 PM CLIENT CARE CONSULTANT) Narrative Procedure Note Desean Bolton MD - 04/29/2024 3:18 PM CST [facility] GI Patient Name: James Villasenor Procedure Date: 04/29/2024 Date of : 1935 Admit Type: Inpatient Age: 88 Attending MD: Desean Bolton , , Procedure: Colonoscopy Indications: Heme positive stool Providers: Desean Bolton Referring MD: Julian Hummel Medicines: Monitored Anesthesia Care Complications: No immediate complications. Procedure: Pre-Anesthesia Assessment: - The risks and benefits of the procedure and the sedation options and risks were discussed with the patient. All questions were answered and informed consent was obtained. - ASA Grade Assessment: III - A patient with severe systemic disease. After I obtained informed consent, the scope was passed under direct vision. Throughout the procedure, the patient's blood pressure, pulse, and oxygen saturations were monitored continuously. The Colonoscope was introduced through the anus and advanced to the cecum, identified by appendiceal orifice and ileocecal valve. The colonoscopy was performed without difficulty. The patient tolerated the procedure well. The quality of the bowel preparation was adequate. Estimated Blood Loss: Estimated blood loss: none. Findings: The perianal and digital rectal examinations were normal. Many diverticula were found in the sigmoid colon and descending colon. Internal hemorrhoids were found during retroflexion. The hemorrhoids were moderate. The exam was otherwise without abnormality. Impression: - Diverticulosis in the sigmoid colon and in the descending colon. - Internal hemorrhoids. - The examination was otherwise normal. - No specimens collected. Recommendation: F/U gastric biopsy results. Desean Bolton, 04/29/2024 3:17:57 PM Number of Addenda: 0 Note Initiated On: 04/29/2024 2:54 PM Scope Withdrawal Time 0 hours 4 minutes 28 seconds Scope In: 3:02:01 PM Scope Out: 3:13:59 PM [address] [place], [place] Desean Bolton MD GI PROCEDURE ORDERABLES Final Result from Last 3 Months or Most Recently Relevant to Health Maintenance Additional Health Concerns Active Problems Noted Date Diagnosed Date Heart Failure Problem 04/05/2024 Heart Failure Problem 04/16/2024 Heart Failure Problem 04/16/2024 Heart Failure Problem 05/04/2024 Heart Failure Problem 05/04/2024 Heart Failure Problem 05/18/2024 Heart Failure Problem 05/18/2024 Insurance [place] H[place] MCR Advance Directives For more information, please contact: [phone] * NO CPR (In Event of Cardiopulmonary Arrest) (Latest Code Status on File) Date Activated Date Inactivated Comments 05/03/2024 12:47 PM 05/13/2024 2:56 AM Question Answer Comments Mechanical Ventilation (for respiratory distress) - Invasive (i.e. intubation): No Mechanical Ventilation (for respiratory distress) - Non-Invasive (i.e. BiPAP, CPAP): No * Full Code Date Activated Date Inactivated Comments 04/24/2024 2:19 AM 05/03/2024 12:47 PM * Full Code Date Activated Date Inactivated Comments 03/29/2024 11:49 PM 04/03/2024 3:14 PM * Full Code Date Activated Date Inactivated Comments 01/10/2021 1:50 PM 01/11/2021 3:01 PM Care Teams Ceramic Capacitor Processor Relationship Specialty Start Date End Date Valdemar Douglass MD [address] [address] PCP - General Family Practice 01/20/23
--- OUTSIDE RECORDS SUMMARY | 2024-10-22 22:36 | XMS_ITS | Encounter Summary ---
Author Organization [facility] Address [address] [place] [address] Care Team Providers Care Facilities Director Name Role Phone Geraldine Ayala MD Primary Care Provider Encounter Details Date Type Department Care Team (Latest Contact Info) Description 2004 Outpatient Historical [facility] Family Medicine- [address] [phone] Herber Doyle MD [address] [facility] [address] [place] [address] ACUTE BRONCHITIS (Primary Dx) Social History Tobacco Use Types Packs/Day Years Used Date Smoking Tobacco: Never Assessed Sex and Gender Information Value Date Recorded Sex Assigned at Not on file Legal Sex Male 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
--- OUTSIDE RECORDS SUMMARY | 2024-10-22 22:36 | XMS_ITS | Clinical Summary ---
Author Organization [facility] Address [address] [place] [address] Care Team Providers Care Citrix Engineer Name Role Phone Geraldine Ayala MD Primary Care Provider Allergies Active Allergy Reactions Criticality Noted Date Comments Sulfa (Sulfonamide Antibiotics) Other (See Comments) 01/23/2010 Medications amiodarone (CORDARONE) 200 mg tabletIndication s:Per Dr. Estrada for 30 days (until February) Take 400 mg by mouth daily. Active ketoconazole (NIZORAL) 2 % CreamIndications :Urinary tract infection without hematuria, site unspecified Apply to affected area daily. 30 Gram 1 9 Active Additional Information Patient taking differently:Topical DAILY,Prn, Reported on 10/16/2020 aspirin (ECOTRIN EC) 81 mg Tablet, Delayed Release (E.C.) Take 81 mg by mouth daily. Active levocetirizine (XYZAL) 5 mg tablet Take 1 Tablet (5 mg) by mouth late in the day. 90 Tablet 1 0 Active montelukast (Singulair) 10 mg tablet Take 1 Tablet (10 mg) by mouth daily at bedtime. 90 Tablet 1 0 Active fluticasone propionate (FLONASE) 50 mcg/spray [place], Suspension nasal inhaler Administer 2 Sprays in each nostril daily. 16 Gram 3 0 Active Additional Information Patient taking differently:2 [place] Both Nostrils DAILY,Prn, Reported on 10/16/2020 benzonatate (TESSALON) 200 mg capsuleIndicatio ns:Upper respiratory tract infection, unspecified type,COPD with exacerbation (CMS/HCC) Take 1 Capsule (200 mg) by mouth 3 times daily as needed for Cough. 30 Capsule 1 0 Active diclofenac sodium (VOLTAREN) 1 % gel APPLY 2 GRAMS TO AFFECTED AREA 4 TIMES DAILY 100 Gram 3 0 Active omeprazole (PriLOSEC) 40 mg Capsule, Delayed Release(E.C.) TAKE 1 CAPSULE BY MOUTH DAILY 90 Capsule 3 0 Active sertraline (ZOLOFT) 50 mg tablet Take 1/2 (one-half) tablet by mouth once daily 45 Tablet 3 1 Active Additional Information Patient taking differently: One tablet bid, Reported on 10/16/2020 dutasteride (AVODART) 0.5 mg Capsule Take 1 Capsule (0.5 mg) by mouth daily. 90 Capsule 3 1 Active tamsulosin (FLOMAX) 0.4 mg capsule Take 1 Capsule (0.4 mg) by mouth daily. 90 Capsule 3 1 Active rosuvastatin (CRESTOR) 20 mg tablet TAKE 1 TABLET BY MOUTH ONCE DAILY AT BEDTIME 90 Tablet 1 1 Active ferrous sulfate 325 mg (65 mg iron) Tablet, Delayed Release (E.C.) Take 1 tablet by mouth once daily 90 Tablet 1 1 Active Saccharomyces boulardii (FLORASTOR) 250 mg Capsule Take by mouth. Acti ve levothyroxine 50 mcg tablet Take 1 Tablet (50 mcg) by mouth daily in the morning. 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 07/17/2020 Overview (07/17/2020): ADDED PER PVQ RESPONSE DOS 3.10.2021 Major depressive disorder, r ecurrent episode, in full remission 07/17/2020 Overview (07/17/2020): ADDED PER PB QUERY RESPONSE DOS 07.05.2020 CKD (chronic kidney disease) stage 3, GFR 30-59 ml/min 01/21/2020 COPD with exacerbation 11/02/[address] 05/02/2016 Chronic combined systolic an d diastolic congestive heart failure 05/02/2016 Lumbar spinal stenosis 08/27/2012 Overview (08/27/2012): MRI: 08/08 Lumbar spondylosis 08/27/2012 Overview (08/27/2012): MRI: 08/08 Followed by [facility] in [place] Lumbar foraminal stenosis 08/27/2012 AAA (abdominal aortic aneurysm) 08/24/2012 Overview (08/24/2012): MRI (08/08): 3.8 cm infrarenal aneurysm Prostate cancer screening 06/15/2012 Overview (06/15/2012): PSA: Tubular adenoma of colon, 03/0703/10/2012 Rotator cuff tear, S/P Repair of Bilateral shoul ders 07/29/2011 Screen for colon cancer 06/19/2008 Overview (03/19/2012): Colonoscopy: 03/07 (tubular adenoma x 1, repeat in 5 yrs); GERD (gastroesophageal reflux disease) Resolved Problems Problem Noted Date Diagnosed Date Resolved Date History of Squamous Cell Car cinoma of Skin, R Scalp (12/03) 03/18/2008 05/02/2016 Immunizations Immunization Administration Dates Next Due (ADACEL/BOOSTRIX)(10 YR UP) TDAP VACCINE, 0.5ML, IM 08/23/2020,03/04/2014 (PNEUMOVAX 23)(50 YRS UP) PNEUMOCOCCAL POLYSACCHARIDE (PPV23) 0.5 ML, IM 03/17/2008 (SPIKEVAX) (12 YRS UP PRIMAR Y SERIES) COVID-19 VACCINE - MRNA-1273(PF) 100 MCG/0.5 ML IM SUSP 07/10/2020,06/12/2020 INFLUENZA VACCINE QUADRIVALE NT 3 YR UP PF IM 03/04/2014 Influenza Seasonal Unspecifi ed Formulation IM 02/14/2006,02/04/2005,02/24/2003,01/27,04/14/2000 Influenza Vaccine High Dose 65+ Yrs IM 03/14/2020 03/14/2021 Influenza Vaccine Split 3+ Yrs IM 02/05/2010, Influenza Vaccine Split 3+ Yrs PF IM 03/10/2012 Family History Medical History Relation Name Comments Other Brother 1 of gunshot age 12 Other Brother 2 in motorcy yousuf accident Healthy Daughter 1 Healthy Daughter 2 Cancer Father Brain CA Cancer Mother Stomach CA Diabetes Sister 1 High Cholesterol Sister 1 Lung Cancer Sister 1 Lung Cancer Sister 2 Cancer Sister 3 Leukemia Healthy Son 1 Healthy Son 2 Breast Cancer Neg Hx Colon Cancer Neg Hx Relation Name Status Comments Brother 1 Brother 2 Daughter 1 Daughter 2 Father Mother Sister 1 Sister 2 Sister 3 Son 1 Son 2 Social History Tobacco Use Types Packs/Day Years Used Date Smoking Tobacco: Former Cigarettes 0.3 40 1 05/11/1971 - 03/11/2012 Smokeless Tobacco: Never Tobacco Cessation:Ready to Q uit: No; Counseling Given: Yes Comments:smokes 1/2 pack per week Alcohol Use Standard Drinks/Week Comments No 0 (1 standard drink = 0.6 oz pur e alcohol) Financial Resource Strain Answer Date R ecorded How hard is it for you to pa y for the very basics like food, housing, medical care, and heating? Not hard at all 07/05/2020 Food Insecurity Answer Date Recorded Within the past 12 months, y ou worried that your food would run out before you got the money to buy more. Never true 07/06/19 21 Within the past 12 months, t he food you bought just didn't last and you didn't have money to get more. Never true 07/05/2020 Transportation Needs Answer Date Record ed In the past 12 months, has l ack of transportation kept you from medical appointments or from getting medications? 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 Gender Identity Not on file Sexual Orientation Not on file Occupation Industry Job Start Date Job End Date Not on file Not on file Not on file Not on file Last Filed Vital Signs Vital Sign Reading Time Taken Comments Blood Pressure 130/60 10/16/2020 2:11 PM CDT Pulse 60 10/16/2020 2:11 PM CDT Temperature 36.1 C (97 F) 10/16/2020 2:11 PM CDT Respiratory Rate 12 10/16/2020 2:11 PM CDT Oxygen Saturation 97% 10/16/2020 2:11 PM CDT Inhaled Oxygen Concentration - - Weight 83.7 kg (184 lb 9.6 oz) 10/16/2020 2:11 P M CDT Height 177.8 cm (5' 10 ) 10/16/2020 2:11 PM CDT Body Mass Index 26.49 10/16/2020 2:11 PM CDT Plan of Treatment Health Maintenance Due Date Last Done Comments ZOSTER VACCINE (1 of 2) 07/10/1985 PNEUMOCOCCAL VACCINE 50+ YEA RS (2 of 2 - PCV) 03/17/2009 03/17/2008 RSV VACCINE (60+ or ) (1 - 1-dose 75+ series) 07/10/2010 INFLUENZA VACCINE (#1) 2023 , 02/07/2020, 02/07/2020, Additional history exists COVID-19 Vaccine (3 - 2023-2 5 season) 2023 07/10/2020, 06/12/2020 [place]) Preventative Visit/Annual Wellness Visit 04/28/2024 07/05/2020, 07/15/2017, 02/08/2014 COLORECTAL SCREENING 04/29/2026 04/29/2024 DTAP/TDAP/TD VACCINES (3 - T d or Tdap) 08/23/2030 08/23/2020, 03/04/2014 Medical Devices Implanted Type Area Seamless Hosiery Knitter Device Identifier Shelf Expiration Date Model / Serial / Lot Lens Io Bi-Aspheric Softechd+21.0d - [id number] Implanted:Qty: 1 on 07/02/2017 by Christopher Syed MD at [facility] Eye Right: Eye [employer] 02/20/2022 SOFTECHD+21 .0D / [id number] / Lens Io Bi-Aspheric Softechd+20.0 - [id number] Implanted:Qty: 1 on 08/13/2017 by Christopher Syed MD at [facility] Eye Left: Eye [employer] 06/23/2021 SOFTECHD+20 .0 / [id number] / Insurance [facility] Advance Directives For more information, please contact: [phone] * Full Code (Latest Code Status on File) Date Activated Date Inactivated Comments 08/13/2017 8:25 AM 08/13/2017 12:28 PM * Full Code Date Activated Date Inactivated Comments 07/02/2017 12:27 PM 07/02/2017 4:16 PM Care Teams Citrix Engineer Relationship Specialty Start Date End Date Geraldine Ayala MD [address] [phone] PCP - General Family Practice 01/30/15
--- OUTSIDE RECORDS SUMMARY | 2024-10-22 22:36 | XMS_ITS | Encounter Summary ---
Author Organization [facility] Address [address] [place] [address] Care Team Providers Care Cork Tile Floor Layer Name Role Phone Geraldine Ayala MD Primary Care Provider Encounter Details Date Type Department Care Team (Late st Contact Info) Description 12/09/2007 Outpatient Historical [facility] Family Medicine [place] [address] [facility] [address] [place] [phone] Mikhail Garcia MD NO ADDRESS ON FILE Social History Tobacco Use Types Packs/Day Years Used Date Smoking Tobacco: Never Assessed Sex and Gender Information Value Date Recorded Sex Assigned at Not on file 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 Gender Identity Not on file Sexual Orientation Not on file documented as of this encounter Plan of Treatment Not on file documented as of this encounter Procedures Procedure Name Priority Date/Time Associated Diagnosis Comments PATHOLOGY Routine 12/09/2007 9:14 AM CDT documented in this encounter Results * PATHOLOGY (12/09/2007 9:14 AM CDT) PATHOLOGY/CYT OLOGY REPORT [facility] Path[facility] [address] [facility] [address] Patient: JAMES VILLASENOR Accn No: [id number] Collected: 12/09/2007 9:14:00 AM DERMATOPATHOLOGY FINAL REPORT Diagnosis SQUAMOUS CELL CARCINOMA; COMPLETELY EXCISED (173.3) (RIGHT FOREHEAD) Pancho Duque MD (Electronically signed by) Verified: 12/14/07 RP /WLS Clinical Information Skin neoplasm. Specimen Source RIGHT FOREHEAD Gross Description Received in formalin is a engle and brown ellipse of skin measuring 2.4 x 1.3 x 0.7 cm with a engle and brown crusted lesion measuring 1.3 x 1.3 cm. The margins of the specimen are inked blue. The tips are submitted in cassette A1. The body of the specimen is sectioned from left to right and submitted in cassettes A2 (four pieces), and A3 (five pieces). Note: The requisition indicates a punch biopsy, however, the specimen appears to be an excision. *Gross examination performed at [facility], [facility] [place] [address] DI RP /WLS Microscopic Description Sections show a proliferation of atypical keratinocytes, arrayed as clusters in the dermis. INTERFACE SYSTEM 12/09/2007 9:14 AM CDT Mikhail Garcia MD PATHOLOGY/CYTOLOGY ORDERAB LES Final Result INTERFACE SYSTEM Refer to clinic/hospital department documented in this encounter Visit Diagnoses Not on filedocumented in this encounter Care Teams Cork Tile Floor Layer Relationship Specialty Start Date End Date Geraldine Ayala MD [address] [facility] [address] [place] [phone] PCP - General Family Practice 01/30/15 documented as of this encounter
--- OUTSIDE RECORDS SUMMARY | 2024-10-22 22:36 | XMS_ITS | Encounter Summary ---
Author Organization [facility] Address [address] [place] [address] Care Team Providers Care Pitch Worker Name Role Phone Geraldine Ayala MD Primary Care Provider Encounter Details Date Type Department Care Team (Latest Contact Info) Description 02/25/2006 Outpatient Historical [facility] [place] [address] [phone] Judy Freedman, REGULATORY LAW SPECIALIST [address] [place] [address] Esophageal Reflux (Primary Dx); Peptic Ulcer, Site NOS; Special Screening for Malignant Neoplasms, Colon Social History Tobacco Use Types Packs/Day Years Used Date Smoking Tobacco: Never Assessed Sex and Gender Information Value Date Recorded Sex Assigned at Not on file 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
--- OUTSIDE RECORDS SUMMARY | 2024-10-22 22:36 | XMS_ITS | Encounter Summary ---
Author Organization [facility] Address [address] [place] [address] Care Team Providers Care Watch Caser Name Role Phone Geraldine Ayala MD Primary Care Provider Encounter Details Date Type Department Care Team (Latest Contact Info) Description 08/20/2004 Outpatient Historical 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
--- OUTSIDE RECORDS SUMMARY | 2024-10-22 22:36 | XMS_ITS | Encounter Summary ---
Author Organization [facility] Address [address] [place] [address] Care Team Providers Care Military Nurse Name Role Phone Geraldine Ayala MD Primary Care Provider Encounter Details Date Type Department Care Team (Late st Contact Info) Description 04/24/2007 Outpatient Historical [facility] Family Medicine [place] [address] [phone] Michele Valerio DO NO ADDRESS ON FILE Social History Tobacco Use Types Packs/Day Years Used Date Smoking Tobacco: Never Assessed Sex and Gender Information Value Date Recorded Sex Assigned at Not on file 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
--- OUTSIDE RECORDS SUMMARY | 2024-10-22 22:36 | XMS_ITS | Encounter Summary ---
Author Organization [facility] Address [address] [place] [address] Care Team Providers Care Electrical Line Splicer Name Role Phone Geraldine Ayala MD Primary Care Provider Encounter Details Date Type Department Care Team (Latest Contact Info) Description 05/22/2005 Outpatient Historical 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
--- OUTSIDE RECORDS SUMMARY | 2024-10-22 22:36 | XMS_ITS | Encounter Summary ---
Author Organization [facility] Address [address] [place] [address] Care Team Providers Care Roads Superintendent Name Role Phone Geraldine Ayala MD Primary Care Provider [phone] Encounter Details Date Type Department Care Team (Latest Contact Info) Description 05/14/2005 Outpatient Historical [facility] Family Medicine [place] [address] [phone] Michele Valerio DO NO ADDRESS ON FILE ACUTE SINUSITIS NOS (Primary Dx) Social History Tobacco Use Types Packs/Day Years Used Date Smoking Tobacco: Never Assessed Sex and Gender Information Value Date Recorded Sex Assigned at Not on file 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
--- OUTSIDE RECORDS SUMMARY | 2024-10-22 22:36 | XMS_ITS | Encounter Summary ---
Author Organization [facility] Address [address] [place] [address] Care Team Providers Care Colorman Name Role Phone Geraldine Ayala MD Primary Care Provider Encounter Details Date Type Department Care Team (Latest Contact Info) Description 02/04/2005 Outpatient Historical [facility] Family Medicine [place] [address] [phone] Michele Valerio DO NO ADDRESS ON FILE Vaccine for influenza (Primary Dx) Social History Tobacco Use Types Packs/Day Years Used Date Smoking Tobacco: Never Assessed Sex and Gender Information Value Date Recorded Sex Assigned at Not on file 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
--- OUTSIDE RECORDS SUMMARY | 2024-10-22 22:36 | XMS_ITS | Encounter Summary ---
Author Organization [facility] Address [address] [place] [address] Care Team Providers Care Reinforcing Steel Erector Name Role Phone Geraldine Ayala MD Primary Care Provider Encounter Details Date Type Department Care Team (Latest Contact Info) Description 05/02/2004 Outpatient Historical [facility] Family Medicine [place] [address] [phone] Michele Valerio DO NO ADDRESS ON FILE CHEST PAIN NOS (Primary Dx); OTHER MALAISE AND FATIGUE Social History Tobacco Use Types Packs/Day Years Used Date Smoking Tobacco: Never Assessed Sex and Gender Information Value Date Recorded Sex Assigned at Not on file 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
--- OUTSIDE RECORDS SUMMARY | 2024-10-22 22:36 | XMS_ITS | Encounter Summary ---
Author Organization [facility] Address [address] [place] [address] Care Team Providers Care Big Data Analytics Lead Name Role Phone Geraldine Ayala MD Primary Care Provider Encounter Details Date Type Department Care Team (Latest Contact Info) Description 02/24/2003 Outpatient Historical [facility] Family Medicine [place] [address] [phone] Ankita Sharp MD NO ADDRESS ON FILE Vaccine for influenza (Primary Dx) Social History Tobacco Use Types Packs/Day Years Used Date Smoking Tobacco: Never Assessed Sex and Gender Information Value Date Recorded Sex Assigned at Not on file 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
--- OUTSIDE RECORDS SUMMARY | 2024-10-22 22:36 | XMS_ITS | Encounter Summary ---
Author Organization [facility] Address [address] [place] [address] Care Team Providers Care Warehouse Director Name Role Phone Geraldine Ayala MD Primary Care Provider [phone] Encounter Details Date Type Department Care Team (Latest Contact Info) Description 12/09/2006 Outpatient Historical [facility] Family Medicine [place] [address] [phone] Michele Valerio DO NO ADDRESS ON FILE Acute Sinusitis, Unspecified (Primary Dx) Social History Tobacco Use Types Packs/Day Years Used Date Smoking Tobacco: Never Assessed Sex and Gender Information Value Date Recorded Sex Assigned at Not on file 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
--- OUTSIDE RECORDS SUMMARY | 2024-10-22 22:36 | XMS_ITS | Encounter Summary ---
Author Organization [facility] Address [address] [place] [address] Care Team Providers Care Medical Instructor Name Role Phone Geraldine Ayala MD Primary Care Provider Encounter Details Date Type Department Care Team (Latest Contact Info) Description 05/21/2005 Outpatient Historical [facility] Family Medicine [place] [address] [phone] Michele Valerio DO NO ADDRESS ON FILE MALE GEN INFLAM DIS NEC (Primary Dx) Social History Tobacco Use Types Packs/Day Years Used Date Smoking Tobacco: Never Assessed Sex and Gender Information Value Date Recorded Sex Assigned at Not on file 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
--- OUTSIDE RECORDS SUMMARY | 2024-10-22 22:36 | XMS_ITS | Encounter Summary ---
Author Organization [facility] Address [address] [place] [address] Care Team Providers Care Top Spotter Name Role Phone Geraldine Ayala MD Primary Care Provider Encounter Details Date Type Department Care Team (Latest Contact Info) Description 08/15/2004 Outpatient Historical [facility] Family Medicine [place] [address] [phone] Michele Valerio DO NO ADDRESS ON FILE BACKACHE NOS (Primary Dx) Social History Tobacco Use Types Packs/Day Years Used Date Smoking Tobacco: Never Assessed Sex and Gender Information Value Date Recorded Sex Assigned at Not on file 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
--- OUTSIDE RECORDS SUMMARY | 2024-10-22 22:36 | XMS_ITS | Encounter Summary ---
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
--- OUTSIDE RECORDS SUMMARY | 2024-10-22 22:36 | XMS_ITS | Encounter Summary ---
Author Organization [facility] Address [address] [place] [address] Care Team Providers Care Log Rafter Name Role Phone Geraldine Ayala MD Primary Care Provider Encounter Details Date Type Department Care Team (Latest Contact Info) Description 02/18/[address] 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
--- OUTSIDE RECORDS SUMMARY | 2024-10-22 22:36 | XMS_ITS | Encounter Summary ---
Author Organization [facility] Address [address] [place] [address] Care Team Providers Care Copyist Name Role Phone Geraldine Ayala MD Primary Care Provider Encounter Details Date Type Department Care Team (Latest Contact Info) Description 10/10/2004 Outpatient Historical [facility] [address] [place] [phone] Portillo Ramirez, DPM [address] [place] [address] JOINT PAIN-ANKLE (Primary Dx) Social History Tobacco Use Types Packs/Day Years Used Date Smoking Tobacco: Never Assessed Sex and Gender Information Value Date Recorded Sex Assigned at Not on file Legal Sex Male 2:59 AM SHROUDMAN Gender Identity Not on file Sexual Orientation Not on file documented as of this encounter Plan of Treatment Not on file documented as of this encounter Visit Diagnoses Diagnosis Pain in joint, ankle and foot- Primary documented in this encounter Care Teams Copyist Relationship Specialty Start Date End Date Geraldine Ayala MD [address] [facility] [place] [phone] PCP - General Family Practice 01/30/15 documented as of this encounter
--- OUTSIDE RECORDS SUMMARY | 2024-10-22 22:36 | XMS_ITS | Encounter Summary ---
Author Organization [facility] Address [address] [place] [address] Care Team Providers Care Electronics Supervisor Name Role Phone Geraldine Ayala MD Primary Care Provider Encounter Details Date Type Department Care Team (Latest Contact Info) Description 04/03/2006 Outpatient Historical [facility] [place] [address] [place] [phone] Tonny Acuna, DPM NO ADDRESS ON FILE Exostosis of Unspecified Site (Primary Dx) Social History Tobacco Use Types Packs/Day Years Used Date Smoking Tobacco: Never Assessed Sex and Gender Information Value Date Recorded Sex Assigned at Not on file 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
--- OUTSIDE RECORDS SUMMARY | 2024-10-22 22:36 | XMS_ITS | Encounter Summary ---
Author Organization [facility] Address [address] [place] [address] Care Team Providers Care Security Field Supervisor Name Role Phone Geraldine Ayala MD Primary Care Provider [phone] Encounter Details Date Type Department Care Team (Late [facility] Info) Description 05/03/2004 Outpatient Historical [facility] FY06 Michele Valerio DO NO ADDRESS ON FILE Social History Tobacco Use Types Packs/Day Years Used Date Smoking Tobacco: Never Assessed Sex and Gender Information Value Date Recorded Sex Assigned at Not on file Legal Sex Male 2:59 AM 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 05/03/2004 9:17 AM COMPLEX CARE NURSE PRACTITIONER us Michele Valerio DO CHEMISTRY ORDERABLES COM Final Result INTERFACE SYSTEM Refer to clinic/hospital department documented in this encounter Visit Diagnoses Not on filedocumented in this encounter Care Teams Security Field Supervisor Relationship Specialty Start Date End Date Geraldine Ayala MD [address] [phone] PCP - General Family Practice 01/30/15 documented as of this encounter
--- OUTSIDE RECORDS SUMMARY | 2024-10-22 22:36 | XMS_ITS | Encounter Summary ---
Author Organization [facility] Address [address] [place] [address] Care Team Providers Care Professor Of Theatre Name Role Phone Geraldine Ayala MD Primary Care Provider [phone] Encounter Details Date Type Department Care Team (Latest Contact Info) Description 10/03/2004 Outpatient Historical [facility] Family Medicine [place] [address] [phone] Michele Valerio DO NO ADDRESS ON FILE CORNS AND CALLOSITIES (Primary Dx) Social History Tobacco Use Types Packs/Day Years Used Date Smoking Tobacco: Never Assessed Sex and Gender Information Value Date Recorded Sex Assigned at Not on file Legal Sex Male 2:59 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
--- OUTSIDE RECORDS SUMMARY | 2024-10-22 22:36 | XMS_ITS ---
Author Organization [facility] Address [address] 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 Chronic pain of both hips 01/24/2023 Frail elderly 01/01/2023 Spasm 01/23/2022 Sleep disorder 01/23/2022 Sacroiliitis, not elsewhere classified Radiculopathy due to lumbar intervertebral disc disorder 01/23/2022 Lumbosacral spondylosis without myelopathy 01/23 Pain in right leg 01/23/2022 Neurogenic claudication 01/23/2022 Limb pain 01/23/2022 Hypersomnia 01/23/2022 Displacement of lumbar inter vertebral disc without myelopathy 01/23/2022 Anxiety disorder 01/23/2022 Acquired spondylolisthesis 01/23/2022 Major depression 07/17/2020 Overview (08/25/2020): ADDED PER PB QUERY RESPONSE DOS 3..2020 Assessment & Plan (08/13/2021 3:27 PM CDT): Stable. Continue current treatment. 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 Past Treatment and Therapy Plans No past plan information found. Lifetime Dose Tracking * Chemical Lifetime Dose Automatic Entry Manual Entr y Effective Dose 121.07 mSv 54.47 mSv 66.6 mSv Total DLP 10,945.79 DLP 6,305.79 DLP 4,640 DLP CTDIvol Max 926.49 mGy 715.99 mGy 210.5 mGy CTDIvol Min 228.4 mGy 114.2 mGy 114.2 mGy Air Kerma 470 mGy 0 mGy 470 mGy Dose Area Product (DAP) 13,313 Gy-cm2 0 Gy-cm2 13, 313 Gy-cm2 Resolved Problems Problem Noted Date Diagnosed Date Resolved Date Low back pain 01/23/2022 01/28/2024 Atherosclerosis of cabazon ar niya of right lower extremity 07/17/2020 08/11/2023 Overview (08/25/2020): ADDED PER PVQ RESPONSE DOS 3.10.2020 Prostate cancer screening 06/15/2012 Overview (08/24/2020): PSA: Screen for colon cancer 06/19/200812/28 Overview (08/24/2020): Colonoscopy: 03/07 (tubular adenoma x 1, repeat in 5 yrs); History of Squamous Cell Car cinoma of Skin, R Scalp (12/03) 03/18/2008 05/02/2016
--- OUTSIDE RECORDS SUMMARY | 2024-10-22 22:36 | XMS_ITS | Encounter Summary ---
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 Pulse: 0. Not dictated. BP: 150/84. Temperature 97.9. Pulse oximetry 98%. SUBJECTIVE: A lot of cough, head plugged up, just came down with it yesterday. OBJECTIVE: GENERAL: The patient is alert. ENT: Tympanic membranes are not injected. Nose: Swelling of the nasal turbinates. Mouth: Tongue ismidline. NECK: Supple. HEART: Regular rate and rhythm. LUNGS: Coarse breath sounds. No rales or rhonchi. ABDOMEN: Soft. ASSESSMENT: Acute bronchitis. PLAN: Lincocin 2 mL IM. Doxycycline 100 mg b.i.d. The patient will recheck Friday if not improved, sooner if condition should worsen to office or ER. Michele Valerio D.O. [facility] Electronically Signed by Michele Valerio D.O. 06/19/2007 09:37 , A, patricio Document #: [id number] cc: ASOUND SUPERVISOR documented in this encounter Plan of Treatment Not on file documented as of this encounter Visit Diagnoses Not on filedocumented in this encounter Care Teams Picker Machine Operator Relationship Specialty Start Date End Date Geraldine Ayala MD [address] [facility] [address] [place] [phone] PCP - General Family Practice 01/30/15 documented as of this encounter
--- OUTSIDE RECORDS SUMMARY | 2024-10-22 22:36 | XMS_ITS | Encounter Summary ---
Author Organization [facility] Address [address] [place] [address] Care Team Providers Care Rubber Off Name Role Phone Geraldine Ayala MD Primary Care Provider [phone] Encounter Details Date Type Department Care Team (Late st Contact Info) Description 06/03/2007 Outpatient Historical [facility] General Surgery [place] [address] [address] [place] [phone] Dominik Nelson, NO ADDRESS ON FILE Social History Tobacco Use Types Packs/Day Years Used Date Smoking Tobacco: Never Assessed Sex and Gender Information Value Date Recorded Sex Assigned at Not on file 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 SUBJECTIVE: This patient was seen here in the office today following his left inguinal herniorrhaphy with insertion of mesh. He has done very well. There have been no complications. The clips were removed. Steri-Strips were applied. He was told to continue to take it easy the next four to five weeks and asked to return in four weeks. There is no evidence of recurrence of his hernia at this time. He was also told that the lesion on his right upper dorsum was a basal cell carcinoma and we have gotten all that. He was subsequently discharged from my care and will return to the care of Dr. Valerio. Dominik Nelson D.O.,[facility] General Surgery Electronically Signed by Dominik Nelson D.O., 06/22/2007 08:51 , P, 560 Document #: [id number] cc: Michele Valerio D.O. MANAGER documented in this encounter Plan of Treatment Not on file documented as of this encounter Visit Diagnoses Not on filedocumented in this encounter Care Teams Rubber Off Relationship Specialty Start Date End Date Geraldine Ayala MD [address] [phone] PCP - General Family Practice 01/30/15 documented as of this encounter
--- OUTSIDE RECORDS SUMMARY | 2024-10-22 22:36 | XMS_ITS | Encounter Summary ---
Author Organization [facility] Address [address] [place] [address] Care Team Providers Care Firmware Software Verification Engineer Name Role Phone Geraldine Ayala MD Primary Care Provider Encounter Details Date Type Department Care Team (Latest Contact Info) Description 06/24/2005 Outpatient Historical [facility] Family Medicine [place] [address] [phone] Michele Valerio DO NO ADDRESS ON FILE ACUTE SINUSITIS NOS (Primary Dx) Social History Tobacco Use Types Packs/Day Years Used Date Smoking Tobacco: Never Assessed Sex and Gender Information Value Date Recorded Sex Assigned at Not on file 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
--- OUTSIDE RECORDS SUMMARY | 2024-10-22 22:36 | XMS_ITS | Encounter Summary ---
Author Organization [facility] Address [address] [place] [address] Care Team Providers Care Sex Crimes Detective Name Role Phone Geraldine Ayala MD Primary Care Provider Encounter Details Date Type Department Care Team (Latest Contact Info) Description 03/25/2006 Outpatient [facility] Podiatry-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
--- NOTE | 2024-10-22 22:52 | CTR_ITS ---
PROCEDURE INFORMATION: Exam: CTA Chest With Contrast Exam date and time: 10/23/2024 12:19 AM Age: 89 years old Clinical indication: Shortness of breath and other: Tachycardia. Dvt. Prior surgery; Surgery date: 6+ months; Surgery type: Defibrillator; Tachycardia with hypoxia. Extensive dvt of left lower ext. ; Additional info: Tachycardia, dvt in leg seen today, no anticoag TECHNIQUE: Imaging protocol: Computed tomographic angiography of the chest with contrast. Exam focused on the arteries. 3D rendering (Not supervised by radiologist): MIP and/or 3D reconstructed images were created by the technologist. Radiation optimization: All CT scans at this facility use at least one of these dose optimization techniques: automated exposure control; mA and/or kV adjustment per patient size (includes targeted exams where dose is matched to clinical indication); or iterative reconstruction. Contrast material: OMNI 350; Contrast volume: 64 ml; Contrast route: INTRAVENOUS (IV); COMPARISON: CT angio chest PE protcl [id number] 04/19/2024 5:50 AM RADIATION DOSE METRICS: Total DLP (mGy-cm): 332.06 FINDINGS: Pulmonary arteries: Normal. No pulmonary emboli. Aorta: Atherosclerosis. No aortic aneurysm. No aortic dissection. Lungs: Emphysematous changes of the lungs. Stable 4 mm nodule in the right lung seen on image 34 of series 4. Additional stable smaller pulmonary nodules. Atelectasis/scarring at the lung bases. Pleural spaces: Unremarkable. No pneumothorax. No pleural effusion. Heart: Unremarkable. No cardiomegaly. No pericardial effusion. Coronary arteries: Coronary artery calcifications. Lymph nodes: Calcified right hilar lymph nodes. Bones/joints: Degenerative changes of the visualized spine. Soft tissues: Unremarkable. CT/CT angio chest PE protcl [id number] IMPRESSION: 1. No pulmonary embolism. Thoracic aorta atherosclerosis and coronary artery disease. 2. Bibasilar atelectasis and/or scarring. Stable bilateral pulmonary nodules. Emphysema.
--- NOTE | 2024-10-22 22:58 | ECG_ITS ---
[facility] Date: 2024-10-22 Pat Name: James Villasenor Department: Room: Gender: Male Senior Sas Developer: : 1935 Requested By: Valdemar Falk Order Number: [id number] Tapia MD: Gibson Harris M.D. Measurements Intervals [place] Rate: 84 P: -35 DC: 144 QRS: -55 QRSD: 142 T: 26 QT: 379 QTc: 448 Interpretive Statements SUPRAVENTRICULAR RHYTHM WITH PVCs LEFT AXIS DEVIATION [QRS AXIS < -30] RIGHT BUNDLE BRANCH BLOCK [120+ ms QRS DURATION, UPRIGHT V1, 40+ ms S IN I/aVL/V4/V5/V6] Compared to ECG 04/21/2024 17:14:25 Left-axis deviation now present Sinus rhythm no longer present First degree AV block no longer present Left anterior fascicular block no longer present Electronically Signed On 10-28-2024 09:18:00 CDT by Gibson Harris M.D. [email or web address]
[2024-10-22 23:26] LABS: Basophils % 0.3 %; Eosinophils # 0.2 10^3/uL (0.0-0.8); Eosinophils % 1.7 %; Hematocrit 29.4 % (37-53); Lymphocytes # 2.2 10^3/uL (0.8-4.8); Lymphocytes % 18.8 %; Mean Corpuscular HGB Conc 30.3 g/dL (30-55); Mean Corpuscular Volume 92.5 fl (82-101); Mean Platelet Volume 8.3 fL (7.4-10.4); Monocytes # 0.6 10^3/uL (0.2-0.9); Monocytes % 5.4 %; Neutrophils # 8.66 10^3/uL (1.8-7.7); Nucleated Red Blood Cells % 0 %; Platelet Count 183 10^3/cmm (157-399); Red Blood Count 3.18 10^6/uL (3.85-5.65); Red Cell Distribution Width 16.2 % (12.1-15.1); White Blood Count 11.85 10^3/uL (3.29-11.43)
[2024-10-22 23:30] VITALS: BP 136/74; PULSE 80; O2SAT 98
[2024-10-22 23:40] LABS: INR 0.93 (0.8-1.2)
[2024-10-22 23:41] LABS: Partial Thromboplastin Time 30.1 SECONDS (23.9-36.7)
[2024-10-22 23:52] LABS: Troponin(5th) Baseline 80 ng/L (0-15)
[2024-10-23 00:01] LABS: Alanine Aminotransferase 7 U/L (0-41); Alkaline Phosphatase 91 U/L (40-130); Anion Gap 13.6 (5-19); Aspartate Amino Transferase 11 U/L (0-40); Blood Urea Nitrogen 34 mg/dL (8-23); Calcium 10.2 mg/dL (8.5-10.5); Carbon Dioxide 29 mmol/L (22-29); Chloride 97 mmol/L (98-107); Globulin 4.7 g/dL (1.3-4.6); Glucose 111 mg/dL (65-115); NT Pro B Type Natriuretic Pept 7851 pg/mL (0-450); Osmolality Calculated 288 mOsm/kg (285-295); Potassium 4.6 mmol/L (3.5-5.1); Sodium 135 mmol/L (136-145); Total Bilirubin 0.4 mg/dL (0.15-1.2); Total Protein 7.7 g/dL (6.6-8.7)
[2024-10-23] MEDS: iohexol 350 mg/mL 500 mL Btl (per mL) IV (00:20)
[2024-10-23 01:22] LABS: Troponin 5 2HR 77.27 ng/L (0-15)
[2024-10-23 01:25] LABS: Troponin 5 2HR Delta -2.73 ABS# (0-10)
[2024-10-23 01:49] LABS: Iron 23 ug/dL (59-158); Percent Saturation 14.2 % (20-50); Total Iron Binding Capacity 161 mcg/dl; Unsaturated Iron Binding 138 ug/dL (112-347)
[2024-10-23] MEDS: apixaban 5 mg Tablet 10 MG PO (02:09)
[2024-10-23 02:17] VITALS: BP 119/57; PULSE 91; O2SAT 93
--- NOTE | 2024-10-23 06:36 | W.ED.EXTPRO ---
HPI - Extremity Problem General: Chief complaint: Extremity Problem,Nontraumatic Stated complaint: possible dvt left thigh Time Seen by Provider: 10/22/24 22:15 History of Present Illness: Patient is a pleasant 89-year-old [facility] seen for left leg swelling, warmth, and redness. 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 He is not currently anticoagulated. He has a history of iron deficiency anemia but never has any recorded bleeding complicating his situation. He is chronically anemic. He denies any pain associated with his leg swelling and redness. He has no other acute complaints and specifically denies shortness of breath, chest pain, lightheadedness, recent sickness or fever. Related Data Home Medications ?Medication ?Instructions ?Recorded ?Confirmed acetaminophen 650 mg 650 mg PO Q12H PRN Pain 06/21/19 04/19/24 tablet,extended release ferrous sulfate 325 mg (65 mg 325 mg PO DAILY 03/07/20 04/19/24 iron) tablet furosemide 20 mg tablet (Lasix) 20 mg PO DAILY 12/04/21 04/19/24 budesonide-formoterol HFA 160 1 puff inhalation BID 12/26/21 04/19/24 mcg-4.5 mcg/actuation aerosol inhaler (Symbicort) hydrocodone 10 mg-acetaminophen 1 tab PO Q6H 12/26/21 04/19/24 325 mg tablet dutasteride 0.5 mg capsule 0.5 mg PO DAILY 04/19/24 04/19/24 levothyroxine 88 mcg tablet 88 mcg PO DAILY 04/19/24 04/19/24 rosuvastatin 20 mg tablet 20 mg PO QPM 04/19/24 04/19/24 tamsulosin 0.4 mg capsule 0.4 mg PO DAILY 04/19/24 04/19/24 Previous Rx's ?Medication ?Instructions ?Recorded amiodarone 200 mg tablet 400 mg (2 x 200 mg) PO DAILY #180 05/17/24 tabs apixaban 5 mg (74 tabs) tablets in See Rx Instructions PO .COMPLEX 10/23/24 a dose pack (Eliquis DVT-PE Treat #74 ea 30D Start) Allergies Allergy/AdvReac Type Severity Reaction Status Date / Time Sulfa (Sulfonamide Allergy Unknown Unknown Verified 04/19/24 02:05 Antibiotics) PFS ED PFSH: Medical History Aortic aneurysm Surgery History of nonmelanoma skin cancer Right inguinal hernia BPH (benign prostatic hyperplasia) Dyslipidemia HTN (hypertension), benign UTI (urinary tract infection) GERD (gastroesophageal reflux disease) History of skin cancer Anxiety ICD (implantable cardioverter-defibrillator) in place Cardiomyopathy CHF (congestive heart failure) Surgical History Status post right inguinal hernia repair (05/10/20) H/O excision of mass (05/10/20) S/P cardiac cath H/O colonoscopy yrs ago S/P internal cardiac defibrillator procedure S/P rotator cuff surgery Family History Mother , CA age 58 Cancer Father , CA age 82 Cancer Sister Cancer Denies family history of Anesthesia complication Bleeding disorder Social History Smoking and tobacco/nicotine status: former use of tobacco/nicotine Alcohol intake: never Substance/Drug Use: never Household members: spouse Marital status: Current occupational status: retired Physical Exam Const: COMMON NORMALS: no acute distress, patient oriented x3 and alert HENMT: COMMON NORMALS: normocephalic and atraumatic HEAD & SCALP: normocephalic and atraumatic Eye: COMMON NORMALS: Equal, round and reactive pupils present, EOMs intact bilaterally and no scleral icterus PUPIL: Yes Equal, round and reactive pupils present Resp: COMMON NORMALS: normal respiratory effort and No retractions Cardio: COMMON NORMALS: regular rate, regular rhythm and No murmurs present (Cardio) RATE: regular rate RHYTHM: regular rhythm GI: COMMON NORMALS: Normal to inspection, nondistended, normoactive bowel sounds present, Soft to palpation and non-tender PALPATION: Yes Soft to palpation Extremity: NARRATIVE EXTREMITY EXAM: Left lower extremity is mildly swollen, erythematous, and warm compared with the contralateral. Neuro: COMMON NORMALS: patient oriented x3 SENSORIUM/ORIENTATION: Yes alert Skin: COMMON NORMALS: no rashes or lesions noted GENERAL SKIN EXAM: no rashes or lesions noted Course Vital Signs: Vital signs: Vital Signs Temperature 98.9 F 10/22/24 22:20 Pulse Rate 91 10/23/24 02:17 Respiratory Rate 18 10/22/24 22:20 Blood Pressure 119/57 10/23/24 02:17 Pulse Oximetry 93 10/23/24 02:17 Oxygen Delivery Me thod Nasal Cannula 10/22/24 23:30 Oxygen Flow Rate 1 10/22/24 23:30 MDM - Extremity (Nontraumatic) Medical Decision Making Patient remained hemodynamically stable throughout ED course. Ultrasound of left lower extremity shows large clot burden. He does have a Lytle filter in place. CT of the chest does not show evidence of PE or other abnormality. He will be started on Eliquis as I feel the risk is worth the benefit given his large clot burden and concern that he may clot off his entire IVC if clot continues to propagate. He has no history of GI bleed or other bleeds when previously anticoagulated though he did have iron deficiency anemia requiring intervention. Again, I believe this risk is worth the benefit. I discussed with the patient and he shows good understanding and agrees. [facility] with [facility] knowing that he should return to the emergency department immediately if he has any symptoms of anemia or bleeding. Lab Data 10/22/24 23:18 10/22/24 23:18 Radiology Impressions Venous Duplex 10/22/24 22:16 IMPRESSION: Positive for extensive DVT from the common femoral vein to the tibioperoneal trunk. ADDENDUM: 10/22/24 1838 THIS REPORT CONTAINS FINDINGS THAT MAY BE CRITICAL TO PATIENT CARE. Per OC support at 11:18 PM CDT on 10/22/2024, Dr Khanna advised report was received and had no further questions. Chest CTA 10/22/24 22:52 IMPRESSION: 1. No pulmonary embolism. Thoracic aorta atherosclerosis and coronary artery disease. 2. Bibasilar atelectasis and/or scarring. Stable bilateral pulmonary nodules. Emphysema. Laboratory Results WBC 11.85 10^3/uL (3.29-11.43) H 10/22/24 23:18 RBC 3.18 10^6/uL (3.85-5.65) L 10/22/24 23:18 Hgb 8.90 g/dL (11.27-16.99) L 10/22/24 23:18 Hct 29.4 % (37-53) L 10/22/24 23:18 MCV 92.5 fl (82-101) 10/22/24 23:18 MCH 28.0 pg (27-33) 10/22/24 23:18 MCHC 30.3 g/dL (30-55) 10/22/24 23:18 RDW 16.2 % (12.1-15.1) H 10/22/24 23:18 Plt Count 183 10^3/cmm (157-399) 10/22/24 23:18 MPV 8.3 fL (7.4-10.4) 10/22/24 23:18 Neut % (Auto) 73.0 % 10/22/24 23:18 Lymph % (Auto) 18.8 % 10/22/24 23:18 Haakon % (Auto) 5.4 % 10/22/24 23:18 Eos % (Auto) 1.7 % 10/22/24 23:18 Baso % (Auto) 0.3 % 10/22/24 23:18 Neut # (Auto) 8.66 10^3/uL (1.8-7.7) H 10/22/24 23:18 Lymph # (Auto) 2.2 10^3/uL (0.8-4.8) 10/22/24 23:18 Haakon # (Auto) 0.6 10^3/uL (0.2-0.9) 10/22/24 23:18 Eos # (Auto) 0.2 10^3/uL (0.0-0.8) 10/22/24 23:18 Baso # (Auto) 0.0 10^3/uL (0.0-0.1) 10/22/24 23:18 Nucleated RBC % (auto) 0 % 10/22/24 23:18 Nucleated RBCs # 0.0 /100WBC 10/22/24 23:18 PT 13.20 SECONDS (12.1-14.9) 10/22/24 23:18 INR 0.93 (0.8-1.2) 10/22/24 23:18 APTT 30.1 SECONDS (23.9-36.7) 10/22/24 23:18 Sodium 135 mmol/L (136-145) L 10/22/24 23:18 Potassium 4.6 mmol/L (3.5-5.1) 10/22/24 23:18 Chloride 97 mmol/L (98-107) L 10/22/24 23:18 Carbon Dioxide 29 mmol/L (22-29) 10/22/24 23:18 Anion Gap 13.6 (5-19) 10/22/24 23:18 BUN 34 mg/dL (8-23) H 10/22/24 23:18 Creatinine 1.3 mg/dL (0.7-1.2) H 10/22/24 23:18 GFR Calculation Not Reportable 10/22/24 23:18 Glucose 111 mg/dL (65-115) 10/22/24 23:18 Calculated Osmolality 288 mOsm/kg (285-295) 10/22/24 23:18 Calcium 10.2 mg/dL (8.5-10.5) 10/22/24 23:18 Iron 23 ug/dL (59-158) L 10/23/24 00:56 TIBC 161 mcg/dl 10/23/24 00:56 % Saturation 14.2 % (20-50) L 10/23/24 00:56 Unsat Iron Binding 138 ug/dL (112-347) 10/23/24 00:56 Total Bilirubin 0.4 mg/dL (0.15-1.2) 10/22/24 23:18 AST 11 U/L (0-40) 10/22/24 23:18 ALT 7 U/L (0-41) 10/22/24 23:18 Alkaline Phosphatase 91 U/L (40-130) 10/22/24 23:18 Troponin T Baseline 80 ng/L (0-15) H 10/22/24 23:18 Troponin T 120 Minute 77.27 ng/L (0-15) H 10/23/24 00:56 Delta Troponin T -2.73 ABS# (0-10) L 10/23/24 00:56 NT-Pro-B Natriuret Pep 7851 pg/mL (0-450) H 10/22/24 23:18 Total Protein 7.7 g/dL (6.6-8.7) 10/22/24 23:18 Albumin 3.0 g/dL (3.5-5.2) L 10/22/24 23:18 Globulin 4.7 g/dL (1.3-4.6) H 10/22/24 23:18 Blood Type O Positive 10/22/24 23:18 Rho(D) Type Rh positive 10/22/24 23:18 Antibody Screen Negative 10/22/24 23:18 All radiology interpretation(s) finalized by discharge Discharge Plan Discharge Patient Disposition: Home Clinical Impression: Deep vein thrombosis (DVT) of left lower extremity Condition: Stable Prescriptions: New Eliquis DVT-PE Treat 30D Start 5 mg (74 tabs) tablets,dose pack See Rx Instructions .ROUTE .COMPLEX Qty: 74 0RF Rx Instructions: orally per package directions No Action acetaminophen 650 mg tablet extended release 650 mg PO Q12H PRN (Reason: Pain) ferrous sulfate 325 mg (65 mg iron) tablet 325 mg PO DAILY furosemide [Lasix] 20 mg tablet 20 mg PO DAILY hydrocodone-acetaminophen 10-325 mg tablet 1 tab PO Q6H budesonide-formoterol [Symbicort] 160-4.5 mcg/actuation HFA aerosol inhaler 1 puff inhalation BID amiodarone 200 mg tablet 400 mg PO DAILY Qty: 180 3RF levothyroxine 88 mcg tablet 88 mcg PO DAILY tamsulosin 0.4 mg capsule 0.4 mg PO DAILY dutasteride 0.5 mg capsule 0.5 mg PO DAILY rosuvastatin 20 mg tablet 20 mg PO QPM Discharge Orders: Discharge ED (Routine); Ordered 10/23/24 Ordered By: Valdemar Khanna Referrals: Supriya Arango [Primary Care Provider, [facility]] Discharge Diet: Usual diet Discharge Activity: Increase activity as tolerated Patient Instructions: Anticoagulation Therapy, Deep Vein Thrombosis (ED), Patient Portal & Rebecca Instructions Activity Restrictions/Additional Instructions: Mr. Thapa has extensive blood clot throughout the left leg which is likely causing the redness and warmth. He has a Lytle filter in his inferior vena cava which should stop the clots from getting to his lungs and appears to be doing so thus far. CT of the chest today did not show evidence of PE. He has a history of iron deficiency anemia thus it is important that we watch him very carefully on blood thinners to make sure he does not become anemic. He is not aware of any adverse bleeding events which occurred with prior anticoagulation efforts. The debate is whether he is best served taking anticoagulation or just leaving the leg the way it is. At this time, it seems most beneficial to undergo a trial of Eliquis to try and decrease the clot burden so that the leg does not become completely clotted off. Extensive clot burden can cause significant damage to the leg and even clot off the inferior vena cava at the site of the Lynette filter should the clot become sufficiently extensive. Please be very carefu l and look out for any sign of bleeding, shortness of breath, anemia, pallor with a very low threshold to return to the emergency department to check for anemia subsequent to Eliquis therapy., Print Language: Thai Coding Level of Care Code ED Erp Manager for Tino Koehler
== END 2024-10-23 02:48 | disposition home or self-care (01) ==
PROVIDERS: Internal Medicine; Emergency Provider Student in an Organized Health Care Education/Training Program; PCP Registered Nurse
DX: I82.412 Acute embolism and thrombosis of left femoral vein (principal); R06.02 Shortness of breath; R00.0 Tachycardia, unspecified; Z95.0 Presence of cardiac pacemaker; E78.5 Hyperlipidemia, unspecified; I11.0 Hypertensive heart disease with heart failure; I50.9 Heart failure, unspecified; Z85.828 Personal history of other malignant neoplasm of skin
CPT/HCPCS: 36415; 71275; 80053; 83540; 83550; 83880; 84484; 85025; 85610; 85730; 86850; 86900; 93005; 93971; 99285; J9999

== ENCOUNTER → 2025-01-05 12:53 | Outpatient (BNVA) | payer MEDICARE, SELFPAY | PROVIDERS: PCP Registered Nurse; Visit Provider Internal Medicine | DX: Z45.02 Encounter for adjustment and management of automatic implantable cardiac defibrillator (principal) | CPT/HCPCS: 93296 ==